=== PATIENT | female | born 1995 | race Caucasian/White ===

== ENCOUNTER 2017-01-16 10:50 | Emergency (ER) | payer BC, OTHER ==
[2017-01-16] MEDS ORDERED: ONDANSETRON 4 MG/2 ML VIAL IVP STA (11:11)
[2017-01-16] MEDS ORDERED: SODIUM CHLORIDE 0.9% 1,000 ML IV STA (11:11)
--- NOTE | 2017-01-16 11:13 | ED ---
General Adult HPI - General Chief complaint: Nausea/Vomiting/Diarrhea Stated complaint: vomiting Time Seen by Provider: 01/16/17 11:04 Source: patient, RN notes reviewed Mode of arrival: ambulatory Limitations: no limitations - History of Present Illness Initial comments: Patient 21-year-old female who presents emergency room today with chief complaint of symptoms of nausea vomiting diarrhea over the last 3 days. She does admit that she has had a difficult time keeping down any food or liquids due to nausea vomiting. States feeling somewhat dehydrated she's noticed that she's having some muscle aches. Patient denies any specific abdominal pain. She states it hurts when she is vomiting. She denies any signs of blood in the emesis or stool. Denies any other associated symptoms or complaints. Patient denies any recent fever, chills, shortness of breath, chest pain, back pain, numbness or tingling, dysuria or hematuria, constipation, headaches or visual changes, or any other complaints. - Related Data Previous Rx's Medication Instructions Recorded Ondansetron Odt [Zofran ODT] 4 mg PO Q8HR PRN #20 tab 01/16/17 Allergies Allergy/AdvReac Type Severity Reaction Status Date / Time No Known Allergies Allergy Verified 01/16/17 11:47 Review of Systems ROS Statement: Those systems with pertinent positive or pertinent negative responses have been documented in the HPI. ROS Other: All systems not noted in ROS Statement are negative. Past Medical History Past Medical History: No Reported History History of Any Multi-Drug Resistant Organisms: None Reported Past Surgical History: No Surgical Hx Reported Past Psychological History: No Psychological Hx Reported Smoking Status: Current every day smoker Past Alcohol Use History: None Reported Past Drug Use History: None Reported General Exam - General Exam Comments Initial Comments: General: The patient is awake and alert, in no distress, and does not appear acutely ill. Eye: Pupils are equal, round and reactive to light, extra-ocular movements are intact. No nystagmus. There is normal conjunctiva bilaterally. No signs of icterus. Ears, nose, mouth and throat: There are moist mucous membranes and no oral lesions. Neck: The neck is supple, there is no tenderness or JVD. Cardiovascular: There is a regular rate and rhythm. No murmur, rub or gallop is appreciated. Respiratory: Lungs are clear to auscultation, respirations are non-labored, breath sounds are equal. No wheezes, stridor, rales, or rhonchi. Gastrointestinal: Soft, non-distended, non-tender abdomen without masses or organomegaly noted. There is no rebound or guarding present. No CVA tenderness. Bowel sounds are unremarkable. Musculoskeletal: Normal ROM, no tenderness. Strength 5/5. Sensation intact. Pulses equal bilaterally 2+. Neurological: A&O x 3. CN II-XII intact, There are no obvious motor or sensory deficits. Coordination appears grossly intact. Speech is normal. Skin: Skin is warm and dry and no rashes or lesions are noted. Psychiatric: Cooperative, appropriate mood & affect, normal judgment. Limitations: no limitations Course Vital Signs 01/16/17 11:21 Temperature 98.4 F Pulse Rate 84 Respiratory 18 Rate Blood Pressure 117/64 O2 Sat by Pulse 98 Oximetry Medical Decision Making - Medical Decision Making Patient reexamined at this time shows no signs of distress is resting comfortably in the stretcher. Abdomen soft nontender. Patient did request a urine drug screen on herself. It did test positive for cocaine and marijuana. Remaining labs been reviewed are unremarkable. No elevated white count. No fever here in the emergency room. Patient will be discharged home with nausea medication advised to follow-up family doctor. - Lab Data Result diagrams: 01/16/17 11:30 01/16/17 11:30 Lab Results 01/16/17 01/16/17 01/16/17 Range/Units 11:30 11:30 12:04 WBC 5.8 (3.8-10.6) k/uL RBC 4.50 (3.80-5.40) m/uL Hgb 14.0 (11.4-16.0) gm/dL Hct 40.7 (34.0-46.0) % MCV 90.6 (80.0-100.0) fL MCH 31.0 (25.0-35.0) pg MCHC 34.3 (31.0-37.0) g/dL RDW 13.3 (11.5-15.5) % Plt Count 303 (150-450) k/uL Neutrophils % 61 % Lymphocytes % 31 % Monocytes % 3 % Eosinophils % 3 % Basophils % 0 % Neutrophils # 3.5 (1.3-7.7) k/uL Lymphocytes # 1.8 (1.0-4.8) k/uL Monocytes # 0.2 (0-1.0) k/uL Eosinophils # 0.2 (0-0.7) k/uL Basophils # 0.0 (0-0.2) k/uL Sodium 140 (137-145) mmol/L Potassium 4.1 (3.5-5.1) mmol/L Chloride 107 (98-107) mmol/L Carbon Dioxide 27 (22-30) mmol/L Anion Gap 6 mmol/L BUN 11 (7-17) mg/dL Creatinine 0.67 (0.52-1.04) mg/dL Est GFR (MDRD) Af Amer >60 (>60 ml/min/1.73 sqM) Est GFR (MDRD) Non-Af >60 (>60 ml/min/1.73 sqM) Glucose 86 (74-99) mg/dL Calcium 9.6 (8.4-10.2) mg/dL Total Bilirubin 0.7 (0.2-1.3) mg/dL AST 18 (14-36) U/L ALT 24 (9-52) U/L Alkaline Phosphatase 65 (38-126) U/L Total Protein 6.8 (6.3-8.2) g/dL Albumin 4.0 (3.5-5.0) g/dL Amylase 58 (30-110) U/L Lipase 66 (23-300) U/L Urine Color Urine Appearance (Clear) Urine pH (5.0-8.0) Ur Specific [place] (1.001-1.035) Urine Protein (Negative) Urine Glucose (UA) (Negative) Urine Ketones (Negative) Urine Blood (Negative) Urine Nitrite (Negative) Urine Bilirubin (Negative) Urine Urobilinogen (<2.0) mg/dL Ur Leukocyte Esterase (Negative) Ur Squamous Epith Cells (0-4) /hpf Amorphous Sediment (None) /hpf Urine HCG, Qual Not Detected (Not Detectd) Urine Opiates Screen (NotDetected) Ur Oxycodone Screen (NotDetected) Urine Methadone Screen (NotDetected) Ur Propoxyphene Screen (NotDetected) Ur Barbiturates Screen (NotDetected) U Tricyclic Antidepress (NotDetected) Ur Phencyclidine Scrn (NotDetected) Ur Amphetamines Screen (NotDetected) U Methamphetamines Scrn (NotDetected) U Benzodiazepines Scrn (NotDetected) Urine Cocaine Screen (NotDetected) U Marijuana (THC) Screen (NotDetected) 01/16/17 01/16/17 Range/Units 12:04 12:04 WBC (3.8-10.6) k/uL RBC (3.80-5.40) m/uL Hgb (11.4-16.0) gm/dL Hct (34.0-46.0) % MCV (80.0-100.0) fL MCH (25.0-35.0) pg MCHC (31.0-37.0) g/dL RDW (11.5-15.5) % Plt Count (150-450) k/uL Neutrophils % % Lymphocytes % % Monocytes % % Eosinophils % % Basophils % % Neutrophils # (1.3-7.7) k/uL Lymphocytes # (1.0-4.8) k/uL Monocytes # (0-1.0) k/uL Eosinophils # (0-0.7) k/uL Basophils # (0-0.2) k/uL Sodium (137-145) mmol/L Potassium (3.5-5.1) mmol/L Chloride (98-107) mmol/L Carbon Dioxide (22-30) mmol/L Anion Gap mmol/L BUN (7-17) mg/dL Creatinine (0.52-1.04) mg/dL Est GFR (MDRD) Af Amer (>60 ml/min/1.73 sqM) Est GFR (MDRD) Non-Af (>60 ml/min/1.73 sqM) Glucose (74-99) mg/dL Calcium (8.4-10.2) mg/dL Total Bilirubin (0.2-1.3) mg/dL AST (14-36) U/L ALT (9-52) U/L Alkaline Phosphatase (38-126) U/L Total Protein (6.3-8.2) g/dL Albumin (3.5-5.0) g/dL Amylase (30-110) U/L Lipase (23-300) U/L Urine Color Light Yellow Urine Appearance Turbid H (Clear) Urine pH 8.0 (5.0-8.0) Ur Specific [place] 1.012 (1.001-1.035) Urine Protein Negative (Negative) Urine Glucose (UA) Negative (Negative) Urine Ketones Negative (Negative) Urine Blood Negative (Negative) Urine Nitrite Negative (Negative) Urine Bilirubin Negative (Negative) Urine Urobilinogen <2.0 (<2.0) mg/dL Ur Leukocyte Esterase Small H (Negative) Ur Squamous Epith Cells 4 (0-4) /hpf Amorphous Sediment Moderate H (None) /hpf Urine HCG, Qual (Not Detectd) Urine Opiates Screen Not Detected (NotDetected) Ur Oxycodone Screen Not Detected (NotDetected) Urine Methadone Screen Not Detected (NotDetected) Ur Propoxyphene Screen Not Detected (NotDetected) Ur Barbiturates Screen Not Detected (NotDetected) U Tricyclic Antidepress Not Detected (NotDetected) Ur Phencyclidine Scrn Not Detected (NotDetected) Ur Amphetamines Screen Not Detected (NotDetected) U Methamphetamines Scrn Not Detected (NotDetected) U Benzodiazepines Scrn Not Detected (NotDetected) Urine Cocaine Screen Detected H (NotDetected) U Marijuana (THC) Screen Detected H (NotDetected) Disposition Clinical Impression: Nausea vomiting and diarrhea Disposition: HOME SELF-CARE Condition: Good Instructions: Acute Nausea and Vomiting (ED) Additional Instructions: Please use medication as discussed. Please follow-up with family doctor in the next 2 days of symptoms have not improved. Please return to emergency room if the symptoms increase or worsen or for any other concerns. Prescriptions: Ondansetron Odt [Zofran ODT] 4 mg PO Q8HR PRN #20 tab PRN Reason: Nausea Referrals: None,Stated [Primary Care Provider] - 1-2 days Time of Disposition: 12:49
[2017-01-16 11:22] VITALS: RESP 18
[2017-01-16 11:54] LABS: ALT 24 U/L (9-52); AST 18 U/L (14-36); Alkaline Phosphatase 65 U/L (38-126); Amylase 58 U/L (30-110); Anion Gap 6 mmol/L; Blood Urea Nitrogen 11 mg/dL (7-17); Calcium 9.6 mg/dL (8.4-10.2); Carbon Dioxide 27 mmol/L (22-30); Chloride 107 mmol/L (98-107); Glucose 86 mg/dL (74-99); Non-African American GFR(MDRD) >60 (>60 ml/min/1.73 sqM); Potassium 4.1 mmol/L (3.5-5.1); Sodium 140 mmol/L (137-145); Total Bilirubin 0.7 mg/dL (0.2-1.3); Total Protein 6.8 g/dL (6.3-8.2)
[2017-01-16 12:01] LABS: Basophils % (A) 0 %; CH 32.2; CHCM 35.7; Eosinophils # (A) 0.2 k/uL (0-0.7); Eosinophils % (A) 3 %; HCT 40.7 % (34.0-46.0); HDW 2.69; Luc # (Auto) 0.13; Luc % (Auto) 2; Lymphocytes # (A) 1.8 k/uL (1.0-4.8); Lymphocytes % (A) 31 %; MCHC 34.3 g/dL (31.0-37.0); MCV 90.6 fL (80.0-100.0); Mean Platelet Volume 6.4; Monocytes # (A) 0.2 k/uL (0-1.0); Monocytes % (A) 3 %; Neutrophils # (A) 3.5 k/uL (1.3-7.7); Neutrophils % (A) 61 %; RDW 13.3 % (11.5-15.5); WBC 5.8 k/uL (3.8-10.6); WBC (Perox) 5.77
[2017-01-16 12:22] LABS: Amorphous Sediment,Urine Moderate /hpf; Appearance,Urine Turbid (Clear); Bilirubin,Urine Negative (Negative); Glucose,Urine (UA) Negative (Negative); Ketones,Urine Negative (Negative); Leukocyte Esterase,Urine Small (Negative); Nitrite,Urine Negative (Negative); Protein,Urine Negative (Negative); Specific Gravity,Urine 1.012 (1.001-1.035); Squamous Epithelial Cell,Urine 4 /hpf (0-4); UA Billing (MACRO vs. MICRO) MICRO; Urobilinogen,Urine <2.0 mg/dL (<2.0)
[2017-01-16 13:33] VITALS: BP 109/63; PULSE 86; TEMP 97.4
== END 2017-01-16 13:31 | disposition home or self-care (01) ==
LOC: EC 10:50
DX: R11.2 Nausea with vomiting, unspecified (principal); R19.7 Diarrhea, unspecified; M79.1 Myalgia; F17.200 Nicotine dependence, unspecified, uncomplicated
CPT/HCPCS: 36415; 80053; 82150; 83690; 85025; 81001; 81025; 80306; 99284; 96374; 96361 ×2; J2405

== ENCOUNTER 2017-09-30 18:27 | Emergency (ER) | payer BC ==
[2017-09-30 18:33] VITALS: BP 104/67; PULSE 68; RESP 18; TEMP 98.2
--- NOTE | 2017-09-30 20:04 | ED ---
General Adult HPI - General Chief complaint: Drug Screen Stated complaint: Drug testing Time Seen by Provider: 09/30/17 19:35 Source: patient, RN notes reviewed Mode of arrival: ambulatory Limitations: no limitations - History of Present Illness Initial comments: This is a 1-year-old female who presents to the emergency department with request for drug screen. Patient states that she is on probation and showed up to get her urine drug screen this morning at 5 AM. She states that they are only open until 6 AM. She states that she was unable to urinate and is only given 15 minutes to try. She reports to the emergency department with request for urine drug screen. Has no other concerns or complaints. - Related Data Home Medications Medication Instructions Recorded Confirmed Omeprazole [PriLOSEC] 20 mg PO DAILY 09/30/17 09/30/17 Varenicline [Chantix Starter Pack] 0.5 mg PO BID 09/30/17 09/30/17 Allergies Allergy/AdvReac Type Severity Reaction Status Date / Time codeine Allergy Anaphylaxis Verified 09/30/17 19:35 Review of Systems ROS Statement: Those systems with pertinent positive or pertinent negative responses have been documented in the HPI. ROS Other: All systems not noted in ROS Statement are negative. Past Medical History Past Medical History: No Reported History History of Any Multi-Drug Resistant Organisms: None Reported Past Surgical History: No Surgical Hx Reported Past Psychological History: No Psychological Hx Reported Smoking Status: Current every day smoker Past Alcohol Use History: None Reported Past Drug Use History: None Reported General Exam - General Exam Comments Initial Comments: No physical examination warranted at this time. Limitations: no limitations Course Vital Signs 09/30/17 18:31 Temperature 98.2 F Pulse Rate 68 Respiratory 18 Rate Blood Pressure 104/67 O2 Sat by Pulse 99 Oximetry Medical Decision Making - Medical Decision Making This is a 21-year-old female who presents to the emergency department with request for urine drug screen. She states she is on probation and was unable to give a sample this morning when she was supposed to. Has no other concerns, complaints or requests. She is in no acute distress and will be discharged home. Disposition Clinical Impression: Encounter for drug screening Disposition: HOME SELF-CARE Condition: Good Additional Instructions: Please follow up with primary care provider within 1-2 days. Return to emergency department if symptoms should worsen or any concerns arise. Referrals: None,Stated [Primary Care Provider] - 1-2 days Time of Disposition: 20:03
[2017-09-30 20:10] LABS: Amphetamine Screen,Urine Not Detected (NotDetected); Benzodiazepines Screen,Urine Not Detected (NotDetected); Cocaine Screen,Urine Not Detected (NotDetected); Methadone Screen, Urine Not Detected (NotDetected); Opiate Screen,Urine Not Detected (NotDetected); Phencyclidine Screen,Urine Not Detected (NotDetected); Tricyclic Antidepressant,Urine Not Detected (NotDetected); Urn Cannabinoid Scrn Not Detected (NotDetected)
[2017-09-30 20:11] LABS: Barbiturate Screen,Urine Not Detected (NotDetected); Oxycodone Screen, Urine Not Detected (NotDetected)
== END 2017-09-30 20:18 | disposition home or self-care (01) ==
LOC: EC 18:27
DX: Z02.9 Encounter for administrative examinations, unspecified (principal); F17.200 Nicotine dependence, unspecified, uncomplicated; Z79.899 Other long term (current) drug therapy; Z88.5 Allergy status to narcotic agent
CPT/HCPCS: 80306; 99281

== ENCOUNTER → 2017-12-04 | Outpatient (CLI) | payer BC ==
--- NOTE | 2017-12-04 07:51 | US ---
EXAMINATION TYPE: US transvaginal DATE OF EXAM: 12/04/2017 COMPARISON: US CLINICAL HISTORY: R10.9 Abdominal pain,R10.2 Pelvic pain. Pt states pelvic pain TECHNIQUE: Transvaginal (TV). Date of LMP: 11/08/2017 EXAM MEASUREMENTS: Uterus: 6.3 x 3.1 x 4.2 cm Endometrial Stripe: 0.7 cm Right Ovary: 3.4 x 1.9 x 2.8 cm Left Ovary: 3.2 x 1.8 x 3.4 cm 1. Uterus: Anteverted wnl 2. Endometrium: wnl 3. Right Ovary: Polycystic in appearance 4. Left Ovary: Polycystic in appearance 5. Bilateral Adnexa: wnl 6. Posterior cul-de-sac: wnl IMPRESSION: 1. Multiple bilateral ovarian follicles correlate clinically.
--- NOTE | 2017-12-04 07:52 | US ---
EXAMINATION TYPE: US abdomen complete DATE OF EXAM: 12/04/2017 COMPARISON: NONE CLINICAL HISTORY: R10.9 Abdominal pain,R10.2 Pelvic pain. Generalized ABD pain EXAM MEASUREMENTS: Liver Length: 13.5 cm Gallbladder Wall: 0.2 cm CBD: 0.2 cm Spleen: 10.1 cm Right Kidney: 10.2 x 3.8 x 5.1 cm Left Kidney: 10.8 x 5.1 x 4.6 cm Pancreas: wnl, tail obscured by overlying bowel gas Liver: wnl Gallbladder: wnl Evidence for sonographic Michaels's sign: No CBD: wnl Spleen: wnl Right Kidney: wnl, lower pole gassed out Left Kidney: wnl, lower pole gassed out Upper IVC: wnl Abd Aorta: wnl No abnormality visualized to account for pt's symptoms The liver is homogenous. The intrahepatic portion of the IVC and proximal abdominal aorta are within normal limits. There is no evidence of cholelithiasis. Common bile duct is unremarkable. The visu alized portions of the pancreas are homogenous. The spleen is unremarkable. Kidneys are symmetric a nd free of hydronephrosis. No renal lesions are seen. IMPRESSION: 1. No acute process.
== END | disposition home or self-care (01) ==
LOC: RADUSWWP 06:52
PROVIDERS: ATTEND Internal Medicine
DX: R10.2 Pelvic and perineal pain (principal)
CPT/HCPCS: 76700; 76830

== ENCOUNTER 2018-05-31 04:45 | Emergency (ER) | payer BC ==
[2018-05-31 04:53] VITALS: BP 116/69; PULSE 98; RESP 16; TEMP 97.7
--- NOTE | 2018-05-31 05:12 | ED ---
General Adult HPI - General Chief complaint: Recheck/Abnormal Lab/Rx Stated complaint: Test Time Seen by Provider: 05/31/18 04:50 Source: patient Mode of arrival: ambulatory Limitations: no limitations - History of Present Illness Initial comments: Nohelia is a female LMP 04/30/2018 who presents to the emergency department for reevaluation of a possible . Patient reports that she was seen by her primary care physician yesterday, she advised him that she been having some irregular vaginal bleeding throughout the month Rissa she had a urine test in the office which was positive any ordered a serum test. Patient didn't receive the results of that. Patient states that she doesn't feel and doesn't believe that she could be because having vaginal bleeding so she came to the ER for evaluation. Patient reports that her menstrual cycle started on April 30, she had some cramping and bleeding that persisted for approximately 3 weeks. This is improved significantly. She reports she is now having mild spotting that the cramping and pain has resolved. She is concerned that she may be having a miscarriage. - Related Data Home Medications Medication Instructions Recorded Confirmed Omeprazole [PriLOSEC] 20 mg PO DAILY 09/30/17 09/30/17 Varenicline [Chantix Starter Pack] 0.5 mg PO BID 09/30/17 09/30/17 Previous Rx's Medication Instructions Recorded Pnv No.95/Ferrous Fum/Folic AC 1 each PO DAILY #30 tablet 05/31/18 [ Multivitamin Tablet] Allergies Allergy/AdvReac Type Severity Reaction Status Date / Time codeine Allergy Anaphylaxis Verified 09/30/17 19:35 Review of Systems ROS Statement: Those systems with pertinent positive or pertinent negative responses have been documented in the HPI. ROS Other: All systems not noted in ROS Statement are negative. Past Medical History Past Medical History: No Reported History Additional Past Medical History / Comment(s): PCOS History of Any Multi-Drug Resistant Organisms: None Reported Past Surgical History: No Surgical Hx Reported Past Psychological History: No Psychological Hx Reported Smoking Status: Current every day smoker Past Alcohol Use History: None Reported Past Drug Use History: None Reported General Exam - General Exam Comments Initial Comments: Physical Exam GENERAL: Patient is well-developed and well-nourished. Patient is nontoxic and well- hydrated and is in no distress. Smells of tobacco smoke HENT: Normocephalic, Atraumatic. EYES: PERRL, EOMI PULMONARY: Unlabored respirations. No audible rales rhonchi or wheezing was noted. CARDIOVASCULAR: There is a regular rate and rhythm without any murmurs gallops or rubs. ABDOMEN: Soft and nontender with normal bowel sounds. SKIN: Skin is clear with no lesions or rashes and otherwise unremarkable. : Deferred NEUROLOGIC: Patient is alert and oriented x3. Moving all extremities spontaneously MUSCULOSKELETAL: Normal extremities with adequate strength and full range of motion. No lower extremity swelling or edema. No calf tenderness. PSYCHIATRIC: Normal psychiatric evaluation. Limitations: no limitations Limitations: no limitations Course Vital Signs 05/31/18 04:49 Temperature 97.7 F Pulse Rate 98 Respiratory 16 Rate Blood Pressure 116/69 O2 Sat by Pulse 100 Oximetry Medical Decision Making - Medical Decision Making Patient was seen and evaluated, patient's medical record was reviewed, patient and a blood draw yesterday with a serum hCG of >2200, blood draw was less than 18 hours prior Patient reports she had cramping earlier in the month but this is improved. She is only having spotting now Either the patient with her serum beta hCG results which she hadn't had previously. I advised her that this is consistent with . However given that she is having some vaginal bleeding she may be having a miscarriage. I advised the patient there is not any diagnostic value to repeating the beta hCG within a 12 hour period. I will provide the patient with a prescription to have her beta hCG repeated on Saturday. Patient is in agreement with this. Return parameters were discussed. All questions pertaining care were answered the best my ability. Patient was prescribed vitamins and discharged home. Patient has a follow-up appointment with gynecology scheduled for June. Disposition Clinical Impression: Vaginal bleeding before 22 weeks gestation Disposition: HOME SELF-CARE Condition: Good Instructions: Threatened Miscarriage (ED) Prescriptions: Pnv No.95/Ferrous Fum/Folic AC [ Multivitamin Tablet] 1 each PO DAILY # 30 tablet Is patient prescribed a controlled substance at d/c from ED?: No Referrals: Ana Musa MD [Primary Care Provider] - 1-2 days Time of Disposition: 05:11
== END 2018-05-31 05:21 | disposition home or self-care (01) ==
LOC: EC 04:45
DX: O20.9 Hemorrhage in early pregnancy, unspecified (principal); O99.330 Smoking (tobacco) complicating pregnancy, unspecified trimester; F17.200 Nicotine dependence, unspecified, uncomplicated; Z88.5 Allergy status to narcotic agent; Z79.899 Other long term (current) drug therapy; Z3A.00 Weeks of gestation of pregnancy not specified
CPT/HCPCS: 99281

== ENCOUNTER → 2018-06-03 | Outpatient (CLI) | payer BC | END | disposition home or self-care (01) | LOC: LABMAIN 19:41 | PROVIDERS: ATTEND Student in an Organized Health Care Education/Training Program | DX: Z53.9 Procedure and treatment not carried out, unspecified reason (principal) ==

== ENCOUNTER 2018-06-10 17:24 | Observation (INO) | payer BC ==
--- NOTE | 2018-06-10 18:51 | ED ---
Abdominal Pain HPI - General Source: family Mode of arrival: ambulatory Limitations: no limitations <Debby Patelolga lidia Benites - Last Filed: 06/11/18 00:09> <Og Owensssjazmin Marrero - Last Filed: 06/11/18 03:12> - General Chief Complaint: Abdominal Pain Stated Complaint: ABDOMINAL PAIN - History of Present Illness Initial Comments: 22-year-old with past medical history of PCOS in recent studies presenting today for chief complaint of right-sided pelvic pain, patient is 6 weeks . Patient states that 2 weeks ago she had a positive test with her primary care provider Dr. Pascual who has been monitoring her serum beta hCG. Patient states that she was seen here on the for vaginal bleeding, at that time beta hCG was trending downward. Patient was discharged. Yesterday patient was seen at [place] her medical or ultrasounds obtained revealing no intrauterine no free fluid, ultrasound report stated that ectopic cannot be ruled out. However patient was discharged. Serum hCG 77 at that time. Patient states that the pain persisted cramping right lower pelvic pain with mild vaginal spotting. Patient denies heavy vaginal bleeding. Today patient pain persisted, so she presented for evaluation. Patient denies nausea, vomiting, diarrhea. Patient does note that at times she has difficulty urinating. Patient states that she hadn't be straight catheterized at the [facility] for UA yesterday, however she has since voided without catheterization. Patient last bowel movement yesterday evening. Patient denies any melena, or hematochezia. Remainder of ROS negative.Patient denies any recent fever, chills, shortness of breath, chest pain, back pain, numbness or tingling, dysuria or hematuria, constipation or diarrhea, headaches or visual changes, or any other complaints. Arrival patient is hemodynamically stable. Patient is not in acute distress. She is ambulatory (Tiny Patel) - Related Data Home Medications Medication Instructions Recorded Confirmed L.acidoph,Paracasei, B.lactis 1 cap PO DAILY 06/10/18 06/10/18 [Probiotic] Allergies Allergy/AdvReac Type Severity Reaction Status Date / Time codeine Allergy Anaphylaxis Verified 06/10/18 17:55 Review of Systems ROS Other: All systems not noted in ROS Statement are negative. Constitutional: Denies: fever, chills ENT: Denies: ear pain, throat pain Respiratory: Denies: cough, dyspnea, wheezes, hemoptysis, stridor Cardiovascular: Denies: chest pain, palpitations Gastrointestinal: Reports: as per HPI, abdominal pain (Right lower pelvic pain) . Denies: nausea, vomiting, diarrhea, constipation, hematemesis, melena, hematochezia Genitourinary: Reports: as per HPI (Difficulty urinating on and off) Musculoskeletal: Denies: back pain, joint swelling, arthralgia Skin: Denies: rash, lesions Neurological: Denies: headache, numbness, paresthesias, confusion, abnormal gait <Tiny Patel - Last Filed: 06/11/18 00:09> ROS Other: All systems not noted in ROS Statement are negative. <Teresa Owens - Last Filed: 06/11/18 03:12> ROS Statement: Those systems with pertinent positive or pertinent negative responses have been documented in the HPI. Past Medical History Past Medical History: No Reported History Additional Past Medical History / Comment(s): PCOS History of Any Multi-Drug Resistant Organisms: None Reported Past Surgical History: No Surgical Hx Reported Past Psychological History: No Psychological Hx Reported Smoking Status: Current every day smoker Past Alcohol Use History: None Reported Past Drug Use History: None Reported <Tiny Patel - Last Filed: 06/11/18 00:09> - Past Family History Mother Family Medical History: Cancer <Teresa Owens - Last Filed: 06/11/18 03:12> General Exam Limitations: no limitations <Tiny Patel L - Last Filed: 06/11/18 00:09> <Teresa Owens P - Last Filed: 06/11/18 03:12> - General Exam Comments Initial Comments: General: The patient is awake and alert, in no distress, and does not appear acutely ill. Eye: Pupils are equal, round and reactive to light, extra-ocular movements are intact. No nystagmus. There is normal conjunctiva bilaterally. No signs of icterus. Ears, nose, mouth and throat: There are moist mucous membranes and no oral lesions. Neck: The neck is supple, there is no tenderness or JVD. Cardiovascular: There is a regular rate and rhythm. No murmur, rub or gallop is appreciated. Respiratory: Lungs are clear to auscultation, respirations are non-labored, breath sounds are equal. No wheezes, stridor, rales, or rhonchi. Gastrointestinal: No noted diaphoresis, jaundice, pallor, protecting postures or squirming. Symmetrical pigmentation of abdomen without signs of inflammation, scars or striae. Umbilicus mildline, inverted without swelling. No dilated veins. No noted abdominal distention, rigidity. No visible masses. No peristalsis, aortic pulsations, or ventral hernia. Bowel sounds audible in all 4 quadrants, unremarkable. No friction rubs or venous hums. No epigastic, hepatic or abdominal bruits. No pain to palpation in the quadrants, however patient has pain to the right lower pelvic region- some guarding noted. Liver edge, not palpable. Spleen edge, right and left kidney not palpable. Superior bladder margin non-tender. Special Testing: Negative , [place], [place], [place], [place]a. Negative Heel Jar test.. No CVA tenderness. Digital rectal exam deferred. Negative farnsworth turners or cullens sign- SEE exam Musculoskeletal: Normal ROM, no tenderness. Strength 5/5. Sensation intact. Pulses equal bilaterally 2+. Neurological: A&O x 3. CN II-XII intact, There are no obvious motor or sensory deficits. Coordination appears grossly intact. Speech is normal. Skin: Skin is warm and dry and no rashes or lesions are noted. Psychiatric: Cooperative, appropriate mood & affect, normal judgment. (Tiny Patel) Course <Tiny Patel - Last Filed: 06/11/18 00:09> <Teresa Owens - Last Filed: 06/11/18 03:12> Vital Signs 06/10/18 06/10/18 17:29 22:55 Temperature 97.8 F Pulse Rate 98 90 Respiratory 18 17 Rate Blood Pressure 102/59 104/63 O2 Sat by Pulse 100 97 Oximetry - Reevaluation(s) Reevaluation #1: Following transvaginal ultrasound, patient admits to increased pain. Patient given Dilaudid. Repeat abdominal pain, revealed increased pain and guarding in comparison with the original exam. These findings were discussed with Dr. Jacobs. 06/10/18 23:51 (Tiny Patel) Reevaluation #2: pt states pt is improving 10/31/18 24:00 (Tiny Patel) Medical Decision Making - Lab Data Result diagrams: 06/10/18 22:32 06/10/18 18:39 <Tiny Patel - Last Filed: 06/11/18 00:09> - Lab Data Result diagrams: 06/10/18 22:32 06/10/18 18:39 <Teresa Owens - Last Filed: 06/11/18 03:12> - Medical Decision Making 22-year-old female with cc of (+) test with right lower quadrant pain concerning for ectopic . Pt at first stated she could no urinate, upon attempt to catheterize patient nurse was unsuccessful. Patient was able to void without catheterization following initial attempt by nursing staff. Bladder scan obtained. US ordered at 18:50, pt US was not completed and resulted until 20:28. Ultrasound revealed no intrauterine , there was some free fluid in the cul-de-sac supporting differential ectopic . I discussed case at this time with attending, awaitng HcG quant results OBGYN would be contacted by attending. Following pelvic ultrasound patient admits to increased pain, patient was given 2 g of Dilaudid. Pelvic performed revealing slightly open OS, brown discharge in the vaginal vault. No hemorrhage. Pt had right adnexa tenderness, findings discussed with Dr Owens. Edwin was contacted at 23:30PM and spoke with Dr. Owens. He was concerned for ectopic, pt admitted. No further orders at this time. ABO/RH pending. Pt remains hemodynamically stable, repeat evaluation at 11:00 pt states that pain has improvement. Hgb trending downward. Pt transferred to floor in stable condition. (Tiny Patel) I personally saw and examined the patient, patient had received IV narcotic pain medication prior to my evaluation. Patient was sitting up in bed resting comfortably. I reviewed the mid-level chart, HPI does have some dictation error. This is a female presenting to the ER for reevaluation of right lower quadrant right-sided pelvic pain. Patient was evaluated earlier in the month by her primary care physician, she had a positive urine test and a serum beta hCG of 2200. She followed up in our ER the following day to confirm that she was . At that time she reported she had some vaginal bleeding but it is improved. No further diagnostic testing was obtained. Patient was advised to have trending beta-hCGs was given a prescription for such. Repeat hCG was trending downward. Patient contacted OB office but has been unable to follow-up at this time. Patient was evaluated yesterday at [facility] for right-sided pelvic pain. Patient was noted to have a hemoglobin of 12.4, a beta hCG of 775, an ultrasound that revealed no intrauterine and no definitive ectopic however ectopic could not be excluded. Patient was discharged home and advised to follow-up. Patient reports pain again worsened today which prompted her return to the emergency department. At the time of the initial evaluation in our emergency department the patient was in significant discomfort, repeat labs are ordered, medical records were obtained from the outside facility. Hemoglobin was trending down, beta hCG essentially unchanged, repeat ultrasound with some free fluid in the pelvis. Based on these findings are is a high suspicion for possible ectopic. Patient care was discussed with Dr. Pineda who recommended the patient be admitted to his service for further evaluation. Patient had been in the emergency department for 5 hours at that time, a repeat hemoglobin was obtained and again revealed a down trending and the hemoglobin by 0.8. Admission orders were placed, patient was transferred to labor and delivery for evaluation by OB for possible intervention. Patient remained hemodynamically stable throughout her ED stay. (Teresa Owens) - Lab Data Lab Results 06/10/18 06/10/18 06/10/18 Range/Units 18:30 18:39 18:39 WBC 5.9 (3.8-10.6) k/uL RBC 3.66 L (3.80-5.40) m/uL Hgb 11.4 (11.4-16.0) gm/dL Hct 33.9 L (34.0-46.0) % MCV 92.8 (80.0-100.0) fL MCH 31.3 (25.0-35.0) pg MCHC 33.7 (31.0-37.0) g/dL RDW 12.9 (11.5-15.5) % Plt Count 287 (150-450) k/uL Neutrophils % 69 % Lymphocytes % 23 % Monocytes % 4 % Eosinophils % 2 % Basophils % 0 % Neutrophils # 4.1 (1.3-7.7) k/uL Lymphocytes # 1.4 (1.0-4.8) k/uL Monocytes # 0.3 (0-1.0) k/uL Eosinophils # 0.1 (0-0.7) k/uL Basophils # 0.0 (0-0.2) k/uL Sodium 139 (137-145) mmol/L Potassium 4.1 (3.5-5.1) mmol/L Chloride 107 (98-107) mmol/L Carbon Dioxide 26 (22-30) mmol/L Anion Gap 6 mmol/L BUN 9 (7-17) mg/dL Creatinine 0.46 L (0.52-1.04) mg/dL Est GFR (CKD-EPI)AfAm >90 (>60 ml/min/1.73 sqM) Est GFR (CKD-EPI)NonAf >90 (>60 ml/min/1.73 sqM) Glucose 128 H (74-99) mg/dL Calcium 9.5 (8.4-10.2) mg/dL Total Bilirubin 0.5 (0.2-1.3) mg/dL AST 26 (14-36) U/L ALT 34 (9-52) U/L Alkaline Phosphatase 50 (38-126) U/L Total Protein 6.5 (6.3-8.2) g/dL Albumin 3.9 (3.5-5.0) g/dL Amylase 41 (30-110) U/L Lipase 45 (23-300) U/L HCG, Quant 787.4 mIU/mL Urine Color Urine Appearance (Clear) Urine pH (5.0-8.0) Ur Specific Hoskins (1.001-1.035) Urine Protein (Negative) Urine Glucose (UA) (Negative) Urine Ketones (Negative) Urine Blood (Negative) Urine Nitrite (Negative) Urine Bilirubin (Negative) Urine Urobilinogen (<2.0) mg/dL Ur Leukocyte Esterase (Negative) Urine RBC (0-5) /hpf Urine WBC (0-5) /hpf Ur Squamous Epith Cells (0-4) /hpf Amorphous Sediment (None) /hpf Urine Mucus (None) /hpf Urine HCG, Qual (Not Detectd) Blood Type Blood Type Recheck Antibody Screen Spec Expiration Date 10/30/18 10/30/18 10/30/18 Range/Units 18:39 18:59 18:59 WBC (3.8-10.6) k/uL RBC (3.80-5.40) m/uL Hgb (11.4-16.0) gm/dL Hct (34.0-46.0) % MCV (80.0-100.0) fL MCH (25.0-35.0) pg MCHC (31.0-37.0) g/dL RDW (11.5-15.5) % Plt Count (150-450) k/uL Neutrophils % % Lymphocytes % % Monocytes % % Eosinophils % % Basophils % % Neutrophils # (1.3-7.7) k/uL Lymphocytes # (1.0-4.8) k/uL Monocytes # (0-1.0) k/uL Eosinophils # (0-0.7) k/uL Basophils # (0-0.2) k/uL Sodium (137-145) mmol/L Potassium (3.5-5.1) mmol/L Chloride (98-107) mmol/L Carbon Dioxide (22-30) mmol/L Anion Gap mmol/L BUN (7-17) mg/dL Creatinine (0.52-1.04) mg/dL Est GFR (CKD-EPI)AfAm (>60 ml/min/1.73 sqM) Est GFR (CKD-EPI)NonAf (>60 ml/min/1.73 sqM) Glucose (74-99) mg/dL Calcium (8.4-10.2) mg/dL Total Bilirubin (0.2-1.3) mg/dL AST (14-36) U/L ALT (9-52) U/L Alkaline Phosphatase (38-126) U/L Total Protein (6.3-8.2) g/dL Albumin (3.5-5.0) g/dL Amylase (30-110) U/L Lipase (23-300) U/L HCG, Quant mIU/mL Urine Color Yellow Urine Appearance Clear (Clear) Urine pH 6.5 (5.0-8.0) Ur Specific Hoskins 1.015 (1.001-1.035) Urine Protein Negative (Negative) Urine Glucose (UA) Negative (Negative) Urine Ketones 1+ H (Negative) Urine Blood Negative (Negative) Urine Nitrite Negative (Negative) Urine Bilirubin Negative (Negative) Urine Urobilinogen <2.0 (<2.0) mg/dL Ur Leukocyte Esterase Trace H (Negative) Urine RBC 1 (0-5) /hpf Urine WBC 4 (0-5) /hpf Ur Squamous Epith Cells <1 (0-4) /hpf Amorphous Sediment Rare H (None) /hpf Urine Mucus Occasional H (None) /hpf Urine HCG, Qual Detected (Not Detectd) Blood Type A Positive Blood Type Recheck CABO Indicated Antibody Screen NEGATIVE Spec Expiration Date 06/13/2018233806/10/18 Range/Units 22:32 WBC 7.9 (3.8-10.6) k/uL RBC 3.30 L (3.80-5.40) m/uL Hgb 10.6 L (11.4-16.0) gm/dL Hct 30.8 L (34.0-46.0) % MCV 93.4 (80.0-100.0) fL MCH 32.0 (25.0-35.0) pg MCHC 34.3 (31.0-37.0) g/dL RDW 13.0 (11.5-15.5) % Plt Count 257 (150-450) k/uL Neutrophils % % Lymphocytes % % Monocytes % % Eosinophils % % Basophils % % Neutrophils # (1.3-7.7) k/uL Lymphocytes # (1.0-4.8) k/uL Monocytes # (0-1.0) k/uL Eosinophils # (0-0.7) k/uL Basophils # (0-0.2) k/uL Sodium (137-145) mmol/L Potassium (3.5-5.1) mmol/L Chloride (98-107) mmol/L Carbon Dioxide (22-30) mmol/L Anion Gap mmol/L BUN (7-17) mg/dL Creatinine (0.52-1.04) mg/dL Est GFR (CKD-EPI)AfAm (>60 ml/min/1.73 sqM) Est GFR (CKD-EPI)NonAf (>60 ml/min/1.73 sqM) Glucose (74-99) mg/dL Calcium (8.4-10.2) mg/dL Total Bilirubin (0.2-1.3) mg/dL AST (14-36) U/L ALT (9-52) U/L Alkaline Phosphatase (38-126) U/L Total Protein (6.3-8.2) g/dL Albumin (3.5-5.0) g/dL Amylase (30-110) U/L Lipase (23-300) U/L HCG, Quant mIU/mL Urine Color Urine Appearance (Clear) Urine pH (5.0-8.0) Ur Specific Hoskins (1.001-1.035) Urine Protein (Negative) Urine Glucose (UA) (Negative) Urine Ketones (Negative) Urine Blood (Negative) Urine Nitrite (Negative) Urine Bilirubin (Negative) Urine Urobilinogen (<2.0) mg/dL Ur Leukocyte Esterase (Negative) Urine RBC (0-5) /hpf Urine WBC (0-5) /hpf Ur Squamous Epith Cells (0-4) /hpf Amorphous Sediment (None) /hpf Urine Mucus (None) /hpf Urine HCG, Qual (Not Detectd) Blood Type Blood Type Recheck Antibody Screen Spec Expiration Date Disposition Decision to Admit Reason: Admit from EC Decision Date: 06/10/18 Decision Time: 23:16 <Tiny Patel - Last Filed: 06/11/18 00:09> <Teresa Owens - Last Filed: 06/11/18 03:12> Clinical Impression: Ectopic Disposition: ADMITTED IP TO THIS [facility] Condition: Stable Addendum entered and electronically signed by Tiny Patel PA-C 06/11/18 00 :10: Pelvic Exam: External genitalia within normal limits, no lesions or lacerations. Upon examination of the vaginal vault, there was brownish discharge, no active hemorrhaging. No noted vaginal lacerations. There was edema of the vagina noted. Cervical os slightly open. Patient had right adnexal tenderness upon bimanual examination.
[2018-06-10 18:58] LABS: Basophils % (A) 0 %; Eosinophils # (A) 0.1 k/uL (0-0.7); Eosinophils % (A) 2 %; HCT 33.9 % (34.0-46.0); HGB 11.4 gm/dL (11.4-16.0); Lymphocytes # (A) 1.4 k/uL (1.0-4.8); Lymphocytes % (A) 23 %; MCH 31.3 pg (25.0-35.0); MCHC 33.7 g/dL (31.0-37.0); MCV 92.8 fL (80.0-100.0); Mean Platelet Volume 6.5; Monocytes # (A) 0.3 k/uL (0-1.0); Monocytes % (A) 4 %; Neutrophils # (A) 4.1 k/uL (1.3-7.7); Neutrophils % (A) 69 %; Platelet Count 287 k/uL (150-450); RBC 3.66 m/uL (3.80-5.40); RDW 12.9 % (11.5-15.5); WBC 5.9 k/uL (3.8-10.6)
[2018-06-10 19:04] LABS: ALT 34 U/L (9-52); AST 26 U/L (14-36); Albumin 3.9 g/dL (3.5-5.0); Alkaline Phosphatase 50 U/L (38-126); Amylase 41 U/L (30-110); Anion Gap 6 mmol/L; Blood Urea Nitrogen 9 mg/dL (7-17); Calcium 9.5 mg/dL (8.4-10.2); Carbon Dioxide 26 mmol/L (22-30); Chloride 107 mmol/L (98-107); Glucose 128 mg/dL (74-99); Lipase 45 U/L (23-300); Potassium 4.1 mmol/L (3.5-5.1); Sodium 139 mmol/L (137-145); Total Bilirubin 0.5 mg/dL (0.2-1.3); Total Protein 6.5 g/dL (6.3-8.2)
[2018-06-10 19:06] LABS: Amorphous Sediment,Urine Rare /hpf; Appearance,Urine Clear (Clear); Bilirubin,Urine Negative (Negative); Blood,Urine Negative (Negative); Color,Urine Yellow; Glucose,Urine (UA) Negative (Negative); Ketones,Urine 1+ (Negative); Leukocyte Esterase,Urine Trace (Negative); Mucus,Urine Occasional /hpf; Nitrite,Urine Negative (Negative); PH, Urine 6.5 (5.0-8.0); Protein,Urine Negative (Negative); RBC,Urine 1 /hpf (0-5); Specific Gravity,Urine 1.015 (1.001-1.035); Squamous Epithelial Cell,Urine <1 /hpf (0-4); Urobilinogen,Urine <2.0 mg/dL (<2.0)
--- NOTE | 2018-06-10 20:28 | US ---
EXAMINATION TYPE: Transabdominal DATE OF EXAM: 11/12/17 COMPARISON: NONE CLINICAL HISTORY: Pain. Pain positive beta hCG test. EXAM PERFORMED: Transvaginal (TV) and Transabdominal (TA) EXAM MEASUREMENTS: GESTATIONAL AGE / DATING Physician Established: Not yet established Dates by LMP: LMP unknown Dates by First Scan: No previous this is first scan Dates by Current Scan for: No IUP seen at this time MATERNAL ANATOMY Uterus: 7.4 x 3.8 x 5.1 cm Right Ovary: 2.3 x 1.5 x 2.7 cm Left Ovary: Not seen to overlying bowel gas. Post CDS / Adnexa: Bowel gas and free fluid seen. Presence of free fluid: Yes GESTATION / SURVEY IUP: No IUP seen at this time Beta HcG (if available): Not available at this time Heterogeneous anteverted uterus is seen. Endometrium is thickened up to 8 mm. No gestational sac, yol k sac, or pole is present. Small amount of free fluid in pelvic cul-de-sac is not completely an echoic extending towards the adnexa. Nonspecific finding. Right ovary is seen. Left ovary is not clearly identified. No suspicious extra ovarian adnexal lesion s are seen. IMPRESSION: Findings could reflect too early to visualize intrauterine but spontaneous is in d ifferential and ectopic is not excluded. Serial beta hCG and ultrasound follow-up is advise d.
[2018-06-10] MEDS ORDERED: HYDROmorphone 1 MG/ML 1 ML SYRINGE IVP STA ×2 (20:33→22:18)
[2018-06-10] MEDS ORDERED: SODIUM CHLORIDE 0.9% 1,000 ML IV ONE (20:59)
[2018-06-10 22:48] LABS: HCT 30.8 % (34.0-46.0); HGB 10.6 gm/dL (11.4-16.0); MCHC 34.3 g/dL (31.0-37.0); MCV 93.4 fL (80.0-100.0); Mean Platelet Volume 6.5; Platelet Count 257 k/uL (150-450); WBC 7.9 k/uL (3.8-10.6)
[2018-06-11] MEDS ORDERED: METHOTREXATE SODIUM (PF) 25 MG/ML 2 ML VIAL IM STA (00:58)
[2018-06-11 01:03] VITALS: RESP 16; TEMP 97.7; BMI 28.7
[2018-06-11] MEDS ORDERED: ZOLPIDEM 5 MG TAB PO PRN (01:08)
--- NOTE | 2018-06-11 01:25 | P.HPOB ---
History of Present Illness H&P Date: 06/11/18 Chief Complaint: Pelvic pain and . This patient is a pleasant 22-year-old 1 para 0 female who presents to [facility] Emergency Department with complaints of persistent vaginal bleeding and pelvic pain with abnormal hCG levels. Patient's history is such that she states she had a last menstrual period that was normal on March 18, then her next bleeding episode began on April 30. Patient states that she has been bleeding on and off since that date. She went to her primary physician, Dr. Musa on May 30 with complaints of bleeding at that time had a positive urine hCG and a beta hCG of 2204. Patient did not have an ultrasound at that time. Dr. Musa repeated her beta hCG approximately 4 days later on June 03 and it was 1724. Patient also went to the emergency department at this hospital on May 31 for similar complaints but did not have any hCG drawn or ultrasound. Patient most recently went to [facility] last evening and had an ultrasound which was normal and is uncertain what her hCG was at that time. Patient is hCG this evening is 787. Ultrasound today shows no evidence of an intrauterine and also no evidence of an ectopic . She did have a trace amount of fluid. Her bleeding is not significantly heavy at this time. Patient thinks that she did pass some possible tissue perhaps the first week of May but she is uncertain. The pain localizes to her central lower pelvic area around the bladder. She has been working and denies any nausea or vomiting. Patient was given 1 dose of Dilaudid in the emergency department. Review of Systems Constitutional: Reports as per HPI Genitourinary: Reports abnormal vaginal bleeding, Reports pelvic pain, Reports Menstruation: Reports as per HPI Past Medical History Past Medical History: Asthma Additional Past Medical History / Comment(s): PCOS History of Any Multi-Drug Resistant Organisms: None Reported Past Surgical History: No Surgical Hx Reported Past Anesthesia/Blood Transfusion Reactions: No Reported Reaction Past Psychological History: No Psychological Hx Reported Smoking Status: Current every day smoker Past Alcohol Use History: None Reported Past Drug Use History: None Reported - Past Family History Mother Family Medical History: Cancer Medications and Allergies Home Medications Medication Instructions Recorded Confirmed Type L.acidoph,Paracasei, B.lactis 1 cap PO DAILY 06/10/18 06/10/18 History [Probiotic] Allergies Allergy/AdvReac Type Severity Reaction Status Date / Time codeine Allergy Anaphylaxis Verified 06/10/18 17:55 Exam Vital Signs Temp Pulse Pulse Resp BP BP Pulse Ox 06/11/18 00:05 97.7 F 85 16 126/81 06/10/18 22:55 90 17 104/63 97 06/10/18 17:29 97.8 F 98 18 102/59 100 Intake and Output 06/10/18 06/10/18 06/11/18 14:59 22:59 06:59 Output Total 350 Balance -350 Output: Post Void Residual 350 Other: Weight 65.771 kg 66.678 kg - OBG Physical Exam Abdomen: bowel sounds normal (Abdominal exam shows some mild tenderness localized to the suprapubic area. There is no rebound and no guarding.), no diffuse tenderness, no bruit present, no guarding noted, no hepatomegaly, no splenomegaly, no mass Results Result Diagrams: 06/10/18 22:32 06/10/18 18:39 Abnormal Lab Results - Last 24 Hours (Table) 06/10/18 06/10/18 06/10/18 Range/Units 18:39 18:39 18:59 RBC 3.66 L (3.80-5.40) m/uL Hgb (11.4-16.0) gm/dL Hct 33.9 L (34.0-46.0) % Creatinine 0.46 L (0.52-1.04) mg/dL Glucose 128 H (74-99) mg/dL Urine Ketones 1+ H (Negative) Ur Leukocyte Esterase Trace H (Negative) Amorphous Sediment Rare H (None) /hpf Urine Mucus Occasional H (None) /hpf 06/10/18 Range/Units 22:32 RBC 3.30 L (3.80-5.40) m/uL Hgb 10.6 L (11.4-16.0) gm/dL Hct 30.8 L (34.0-46.0) % Creatinine (0.52-1.04) mg/dL Glucose (74-99) mg/dL Urine Ketones (Negative) Ur Leukocyte Esterase (Negative) Amorphous Sediment (None) /hpf Urine Mucus (None) /hpf Assessment and Plan Assessment: This is a pleasant 22-year-old 1 para 0 female who presents with pelvic pain, prolonged vaginal bleeding, and slowly falling beta hCG levels. I had a long discussion with the patient about possible diagnoses including a complete or an ectopic . Certainly her hCG levels have fallen significantly in the last 7 days and if it is a spontaneous it appears she has passed all the tissue. She understands that although the ultrasound does not show evidence of an ectopic , given her pelvic pain and abnormal hCG levels this still certainly could be going on. At this point she is stable and I offered her the option of continued observation with serial hCGs versus methotrexate and again close observation and serial hCGs. I do not think she requires surgery at this time. Patient is amendable to trying medical treatment for this. Therefore based on her body surface area were going to give her a milligrams of methotrexate IM now. She is already had normal liver function tests. Her blood type is Rh+. She will have a repeat CBC in the morning and then be discharged home to follow up with me in the office for repeat exam and serial hCGs. (1) Ectopic Current Visit: Yes Status: Acute Code(s): O00.90 - UNSPECIFIED ECTOPIC WITHOUT INTRAUTERINE SNOMED Code(s): 89434572
[2018-06-11 03:52] VITALS: BP 121/72; PULSE 79
--- NOTE | 2018-06-11 06:35 | P.PN ---
Progress Note - Text Progress Note Date: 06/11/18 Patient is seen resting in bed texting on her phone. She slept last evening and states she still is having some discomfort but in general no significant changes. She received methotrexate 80 mg IM. Examination of her abdomen shows be soft without rebound or guarding. Mild tenderness to deep palpation. My impression this is a spontaneous or ectopic . Her treating her as an ectopic is been treated with methotrexate. Patient appears be stable for discharge home follow up with me closely as an outpatient. She is given instructions repeat her beta hCG on Saturday morning see me Saturday afternoon. She also given instructions return to the emergency Department if significant pain or other symptomatology that we discussed.
[2018-06-11 06:36] LABS: Basophils % (A) 0 %; Eosinophils # (A) 0.1 k/uL (0-0.7); Eosinophils % (A) 2 %; HCT 31.1 % (34.0-46.0); HGB 10.5 gm/dL (11.4-16.0); Lymphocytes # (A) 1.7 k/uL (1.0-4.8); Lymphocytes % (A) 36 %; MCH 32.2 pg (25.0-35.0); MCHC 33.6 g/dL (31.0-37.0); MCV 95.9 fL (80.0-100.0); Mean Platelet Volume 6.3; Monocytes # (A) 0.2 k/uL (0-1.0); Monocytes % (A) 4 %; Neutrophils # (A) 2.6 k/uL (1.3-7.7); Neutrophils % (A) 56 %; Platelet Count 272 k/uL (150-450); RBC 3.25 m/uL (3.80-5.40); WBC 4.7 k/uL (3.8-10.6)
--- NOTE | 2018-06-11 06:46 | P.DS ---
Providers Date of admission: 06/10/18 22:44 Expected date of discharge: 06/11/18 Attending physician: Franco Pineda Primary care physician: Dmiple Perez - Discharge Diagnosis(es) (1) Ectopic Current Visit: Yes Status: Acute Hospital Course: Please see dictated H&P for intimate details of this patient's admission. Brief summary this is a pleasant 22-year-old 1 para 0 female who presented to the emergency department with complaints of pelvic pain and vaginal bleeding. Patient has had multiple hCGs has been followed by Dr. Pascual for an abnormal . Ultrasound did not show evidence of an ectopic however due to the patient's clinical symptoms and hCG levels. Assuming that that's what her condition was. Patient was given methotrexate and admitted for observation. Patient's felt to be stable for discharge home follow up with me as an outpatient closely. Repeat hCG on Saturday morning and see me Saturday afternoon. She given strict instructions to return for in the event of worsening ectopic. Patient Condition at Discharge: Stable Plan - Discharge Summary New Discharge Prescriptions: No Action L.acidoph,Paracasei, B.lactis [Probiotic] 1 cap PO DAILY Discharge Medication List L.acidoph,Paracasei, B.lactis [Probiotic] 1 cap PO DAILY 06/10/18 [History] Follow up Appointment(s)/Referral(s): Franco Pineda MD [STAFF PHYSICIAN] - 06/16/18 1:30 pm Patient Instructions/Handouts: Ectopic (DC) Activity/Diet/Wound Care/Special Instructions: No intercourse or anything per vagina. No strenuous activities. Patient to be off work until seen by me on Saturday. Return to the emergency department a significant abdominal pain as discussed. Discharge Disposition: HOME SELF-CARE
[2018-06-11] MEDS ORDERED: HYDROcodone/APAP 5-325MG 1 EACH TAB PO PRN (07:47)
== END 2018-06-11 09:22 | disposition home or self-care (01) ==
LOC: EC 17:24 → 4FBP 22:44
PROVIDERS: ADMIT Obstetrics & Gynecology; ATTEND Obstetrics & Gynecology
DX: O00.90 Unspecified ectopic pregnancy without intrauterine pregnancy (principal); E28.2 Polycystic ovarian syndrome; J45.909 Unspecified asthma, uncomplicated; F17.200 Nicotine dependence, unspecified, uncomplicated; Z88.5 Allergy status to narcotic agent; Z80.9 Family history of malignant neoplasm, unspecified
CPT/HCPCS: 96372; 96376; 96361; 96374; 99285; 36415; 86900; 86901; 80053; 82150; 83690; 85025 ×2; 85027; 86850; 81001; 81025; 84702; 76801; G0378 ×2; J9260; J1170

== ENCOUNTER → 2018-06-16 | Outpatient (CLI) | payer BC | END | disposition home or self-care (01) | LOC: LABWHC1 09:28 | PROVIDERS: ATTEND Obstetrics & Gynecology | DX: O00.90 Unspecified ectopic pregnancy without intrauterine pregnancy (principal) | CPT/HCPCS: 36415; 84702 ==

== ENCOUNTER → 2018-06-24 | Outpatient (CLI) | payer BC | END | disposition home or self-care (01) | LOC: LABWHC1 12:16 | PROVIDERS: ATTEND Obstetrics & Gynecology | DX: Z34.00 Encounter for supervision of normal first pregnancy, unspecified trimester (principal) | CPT/HCPCS: 36415; 84702 ==

== ENCOUNTER 2018-08-22 23:47 | Emergency (ER) | payer BC ==
[2018-08-23 01:14] LABS: Amorphous Sediment,Urine Rare /hpf; Appearance,Urine Cloudy (Clear); Bacteria,Urine Few /hpf; Bilirubin,Urine Negative (Negative); Blood,Urine Moderate (Negative); Color,Urine Yellow; Glucose,Urine (UA) Negative (Negative); Ketones,Urine Negative (Negative); Leukocyte Esterase,Urine Trace (Negative); Nitrite,Urine Negative (Negative); Protein,Urine Trace (Negative); Squamous Epithelial Cell,Urine 1 /hpf (0-4); WBC,Urine 4 /hpf (0-5)
--- NOTE | 2018-08-23 02:13 | ED ---
Female Urogenital HPI - General Chief complaint: Vaginal Bleeding Stated complaint: Poss. Following Miscarriage Time Seen by Provider: 08/23/18 00:05 Source: patient Mode of arrival: ambulatory Limitations: no limitations - History of Present Illness Initial comments: 22-year-old female patient presents to the emergency department with chief complaint of vaginal bleeding. Patient states since yesterday she has been spotting. Patient states she did start to pass clots today. Patient states she is having very vague and mild lower abdominal cramping. States that in April she had similar symptoms and was diagnosed with an ectopic . Patient states that she is feeling fatigued, has no appetite, hasn't been sleeping well, has nipple sensitivity which was consistent with her symptoms from April. States that she did take a test at home which was negative. She denies any fevers or chills. Denies any nausea or vomiting. Patient denies any recent rash, shortness breath, chest pain, diarrhea, constipation, back pain, numbness, tingling, dizziness, weakness, hematuria, dysuria, urinary urgency, urinary frequency, headache, visual changes, or any other complaints. - Related Data Home Medications Medication Instructions Recorded Confirmed L.acidoph,Paracasei, B.lactis 1 cap PO DAILY 06/10/18 06/10/18 [Probiotic] Allergies Allergy/AdvReac Type Severity Reaction Status Date / Time codeine Allergy Anaphylaxis Verified 08/22/18 23:55 Review of Systems ROS Statement: Those systems with pertinent positive or pertinent negative responses have been documented in the HPI. ROS Other: All systems not noted in ROS Statement are negative. Past Medical History Past Medical History: Asthma Additional Past Medical History / Comment(s): PCOS History of Any Multi-Drug Resistant Organisms: None Reported Past Surgical History: No Surgical Hx Reported Past Anesthesia/Blood Transfusion Reactions: No Reported Reaction Past Psychological History: Depression Smoking Status: Current every day smoker Past Alcohol Use History: Occasional Past Drug Use History: Marijuana - Past Family History Mother Family Medical History: Cancer General Exam Limitations: no limitations General appearance: alert, in no apparent distress, other (Physical well- developed, well-nourished adult female patient in no acute distress. Vital signs upon presentation are temperature 99.2F, pulse 111, respirations 17, blood pressure 136/86, pulse ox 100% on room air.) Eye exam: Present: normal appearance, PERRL, EOMI. Absent: scleral icterus, conjunctival injection, periorbital swelling Respiratory exam: Present: normal lung sounds bilaterally. Absent: respiratory distress, wheezes, rales, rhonchi, stridor Cardiovascular Exam: Present: regular rate, normal rhythm, normal heart sounds. Absent: systolic murmur, diastolic murmur, rubs, gallop, clicks GI/Abdominal exam: Present: soft, normal bowel sounds. Absent: distended, tenderness, guarding, rebound, rigid Neurological exam: Present: alert, oriented X3, CN II-XII intact Psychiatric exam: Present: normal affect, normal mood Skin exam: Present: warm, dry, intact, normal color. Absent: rash Course Vital Signs 08/22/18 08/23/18 23:52 02:16 Temperature 99.2 F 98.0 F Pulse Rate 111 H 88 Respiratory 17 18 Rate Blood Pressure 136/86 112/59 O2 Sat by Pulse 100 99 Oximetry Medical Decision Making - Medical Decision Making 22-year-old female patient presents to the emergency department today for evaluation of vaginal bleeding. Patient is concerned she may be and has had negative home test in the past when in fact she was extremely exam ectopic . Physical examination is unremarkable. Urinalysis was unremarkable. We did perform serum quantitative hCG which was negative. Patient symptoms are consistent with menstruation. Did discuss findings with the patient. She'll be discharged home to follow-up with her primary care physician and return parameters discussed in detail. She verbalizes understanding and agrees with this plan. - Lab Data Lab Results 08/23/18 08/23/18 Range/Units 00:15 00:45 HCG, Quant <2.4 mIU/mL Urine Color Yellow Urine Appearance Cloudy H (Clear) Urine pH 7.0 (5.0-8.0) Ur Specific [place] 1.020 (1.001-1.035) Urine Protein Trace H (Negative) Urine Glucose (UA) Negative (Negative) Urine Ketones Negative (Negative) Urine Blood Moderate H (Negative) Urine Nitrite Negative (Negative) Urine Bilirubin Negative (Negative) Urine Urobilinogen 3.0 (<2.0) mg/dL Ur Leukocyte Esterase Trace H (Negative) Urine WBC 4 (0-5) /hpf Ur Squamous Epith Cells 1 (0-4) /hpf Amorphous Sediment Rare H (None) /hpf Urine Bacteria Few H (None) /hpf Disposition Clinical Impression: Menstruation Disposition: HOME SELF-CARE Condition: Good Instructions: Menstruation (ED) Additional Instructions: Increase fluids. Follow up with primary care physician for recheck as soon as possible. Return immediately for new, worsening, or concerning symptoms. Is patient prescribed a controlled substance at d/c from ED?: No Referrals: Ana Musa MD [Primary Care Provider] - 1-2 days Time of Disposition: 02:14
[2018-08-23 02:17] VITALS: BP 112/59; PULSE 88; RESP 18; TEMP 98
== END 2018-08-23 02:19 | disposition home or self-care (01) ==
LOC: EC 23:47
DX: N92.0 Excessive and frequent menstruation with regular cycle (principal); Z32.02 Encounter for pregnancy test, result negative; R63.0 Anorexia; E28.2 Polycystic ovarian syndrome; F17.200 Nicotine dependence, unspecified, uncomplicated; Z88.5 Allergy status to narcotic agent
CPT/HCPCS: 36415; 81001; 84702; 99284

== ENCOUNTER 2020-05-15 15:46 | Inpatient (IN) | payer BC, OTHER ==
[2020-05-15 16:28] LABS: Appearance,Urine Clear (Clear); Bilirubin,Urine Negative (Negative); Blood,Urine Negative (Negative); Color,Urine Colorless; Glucose,Urine (UA) Negative (Negative); Ketones,Urine Negative (Negative); Leukocyte Esterase,Urine Negative (Negative); Nitrite,Urine Negative (Negative); Protein,Urine Negative (Negative); Specific Gravity,Urine 1.002 (1.001-1.035); Urobilinogen,Urine <2.0 mg/dL (<2.0)
[2020-05-15 16:39] LABS: Amphetamine Screen,Urine Not Detected (NotDetected); Barbiturate Screen,Urine Not Detected (NotDetected); Benzodiazepines Screen,Urine Not Detected (NotDetected); Cocaine Screen,Urine Not Detected (NotDetected); Methadone Screen, Urine Not Detected (NotDetected); Opiate Screen,Urine Not Detected (NotDetected); Oxycodone Screen, Urine Not Detected (NotDetected); Phencyclidine Screen,Urine Not Detected (NotDetected); Tricyclic Antidepressant,Urine Not Detected (NotDetected); Urn Cannabinoid Scrn Detected (NotDetected)
--- NOTE | 2020-05-15 18:01 | ED ---
Psych HPI - General Source: patient Mode of arrival: ambulatory <Tiny Patel - Last Filed: 05/15/20 17:55> <Daya Garza - Last Filed: 05/18/20 16:01> - General Chief Complaint: Psychiatric Symptoms Stated Complaint: mental health Time Seen by Provider: 05/15/20 15:52 - History of Present Illness Initial Comments: 24yo female presenting today for chief complaint of suicidal ideations. Patient states she has been suicidal for over a year and has had many plans. Patient denies homicidal ideations. cannot take it anymore. patient has no additional complaints. upon arrival she appears nontoxic but is tearful very cooperative. (Tiny Patel) - Related Data Previous Rx's Medication Instructions Recorded ARIPiprazole [Abilify] 5 mg PO DAILY 30 Days tab 05/18/20 FLUoxetine HCL [PROzac] 30 mg PO DAILY 30 Days cap 05/18/20 Melatonin 6 mg PO HS 30 Days tablet 05/18/20 Nicotine 21Mg/24Hr Patch [Habitrol] 1 patch TRANSDERM DAILY 30 Days 05/18/20 patch Allergies Allergy/AdvReac Type Severity Reaction Status Date / Time codeine Allergy Anaphylaxis Verified 05/15/20 17:30 Review of Systems ROS Other: All systems not noted in ROS Statement are negative. <Tiny Patel - Last Filed: 05/15/20 17:55> ROS Other: All systems not noted in ROS Statement are negative. <Daya Garza - Last Filed: 05/18/20 16:01> ROS Statement: Those systems with pertinent positive or pertinent negative responses have been documented in the HPI. Past Medical History Past Medical History: Asthma Additional Past Medical History / Comment(s): PCOS History of Any Multi-Drug Resistant Organisms: None Reported Past Surgical History: No Surgical Hx Reported Past Anesthesia/Blood Transfusion Reactions: No Reported Reaction Past Psychological History: Depression Smoking Status: Current every day smoker Past Alcohol Use History: Occasional Past Drug Use History: Marijuana - Past Family History Mother Family Medical History: Cancer <Tiny Patel - Last Filed: 05/15/20 17:55> General Exam Limitations: no limitations <Tiny Patel - Last Filed: 05/15/20 17:55> - General Exam Comments Initial Comments: General: The patient is awake and alert Eye: +3 mm pupils are equal, round and reactive to light, extra-ocular movements are intact. No nystagmus. There is normal conjunctiva bilaterally. No signs of icterus. Ears, nose, mouth and throat: There are moist mucous membranes and no oral lesions. Neck: The neck is supple, there is no tenderness or JVD. Cardiovascular: There is a regular rate and rhythm. No murmur, rub or gallop is appreciated. Respiratory: Lungs are clear to auscultation, respirations are non-labored, breath sounds are equal. No wheezes, stridor, rales, or rhonchi. Gastrointestinal: Soft, non-distended, non-tender abdomen without masses or organomegaly noted. There is no rebound or guarding present. Musculoskeletal: Normal ROM, no tenderness. Strength 5/5. Sensation intact. Radial pulses equal bilaterally 2+. Neurological: A&O x 3. CN II-XII intact grossly, There are no obvious motor or sensory deficits. Coordination appears grossly intact. Speech is normal. Skin: Skin is warm and dry and no rashes or lesions are noted. Psychiatric: Cooperative, tearful (Tiny Patel) Course Vital Signs 05/15/20 05/15/20 15:48 18:17 Temperature 98.1 F 98.3 F Pulse Rate 84 76 Respiratory 18 12 Rate Blood Pressure 120/77 120/79 O2 Sat by Pulse 100 99 Oximetry Medical Decision Making <Tiny aPtel - Last Filed: 05/15/20 17:55> - Lab Data Result diagrams: 05/16/20 08:25 05/16/20 08:25 <Daya Garza - Last Filed: 05/18/20 16:01> - Medical Decision Making Med cleared. no attempt at suicide per patient only thoughts. patient evaluated by eps who recommended admission. patient voluntarily agreeable to admission. (Tiny Patel) - Lab Data Lab Results 05/15/20 05/15/20 Range/Units 16:09 16:09 Urine Color Colorless Urine Appearance Clear (Clear) Urine pH 7.0 (5.0-8.0) Ur Specific [place] 1.002 (1.001-1.035) Urine Protein Negative (Negative) Urine Glucose (UA) Negative (Negative) Urine Ketones Negative (Negative) Urine Blood Negative (Negative) Urine Nitrite Negative (Negative) Urine Bilirubin Negative (Negative) Urine Urobilinogen <2.0 (<2.0) mg/dL Ur Leukocyte Esterase Negative (Negative) Urine HCG, Qual Not Detected (Not Detectd) Urine Opiates Screen Not Detected (NotDetected) Ur Oxycodone Screen Not Detected (NotDetected) Urine Methadone Screen Not Detected (NotDetected) Ur Propoxyphene Screen Not Detected (NotDetected) Ur Barbiturates Screen Not Detected (NotDetected) U Tricyclic Antidepress Not Detected (NotDetected) Ur Phencyclidine Scrn Not Detected (NotDetected) Ur Amphetamines Screen Not Detected (NotDetected) U Methamphetamines Scrn Not Detected (NotDetected) U Benzodiazepines Scrn Not Detected (NotDetected) Urine Cocaine Screen Not Detected (NotDetected) U Marijuana (THC) Screen Detected H (NotDetected) Disposition Is patient prescribed a controlled substance at d/c from ED?: No Time of Disposition: 18:01 - Out of Hospital Transfer - Req. Specs Out of Hospital Transfer - Requested Specifics: Psychiatric Non-ICU <Tiny Patel - Last Filed: 05/15/20 17:55> <Daya Garza - Last Filed: 05/18/20 16:01> Clinical Impression: Suicidal ideations Disposition: TRANSFER TO PSYCH HOSP/UNIT Condition: Stable
[2020-05-15] MEDS ORDERED: ZIPRASIDONE 20 MG VIAL IM PRN (18:09)
[2020-05-15] MEDS ORDERED: LORazepam 1 MG TAB PO PRN (18:09)
[2020-05-15] MEDS ORDERED: MAG HYDROX/AL HYDROX/SIMETH 30 ML CUP PO PRN (18:09)
[2020-05-15] MEDS ORDERED: ACETAMINOPHEN TAB 325 MG TAB PO PRN (18:09)
[2020-05-15] MEDS ORDERED: MAGNESIUM HYDROXIDE 2,400 MG/10 ML CUP PO PRN (18:09)
[2020-05-15 19:45] VITALS: RESP 16
[2020-05-15] MEDS ORDERED: diphenhydrAMINE 50 MG CAP PO STA (23:06)
--- NOTE | 2020-05-15 23:06 | P.MDCNMH ---
History of Present Illness H&P Date: 05/15/20 Chief Complaint: medical evaluation 24 year old female with depression patient comes in voluntarily for mental health evaluation due to suicidal ideation over the past few months . she had multiple plans, recently thinking of getting a gun, she does not own one. she denies hearing voices. she denies being on any antidepressant meds. she believes in holistic natural approach though. she denies any fever chills, or URI symptoms, denies any abd pain nausea or vomiting or abd pain patient admits to irregular periods , and her last menstrual cycle was in november of this year. she has negative test in the ED. she admits to smoking cigarettes and marijuana. denies using alcohol on regular basis Review of Systems Pertinent positives as noted in HPI. All other systems were reviewed and are negative Past Medical History Past Medical History: Asthma Additional Past Medical History / Comment(s): PCOS History of Any Multi-Drug Resistant Organisms: None Reported Past Surgical History: No Surgical Hx Reported Past Anesthesia/Blood Transfusion Reactions: No Reported Reaction Past Psychological History: Depression Smoking Status: Current every day smoker Past Alcohol Use History: Occasional Past Drug Use History: Marijuana - Past Family History Mother Family Medical History: Cancer Medications and Allergies Home Medications Medication Instructions Recorded Confirmed Type Melatonin 10 mg PO HS 05/15/20 05/15/20 History Allergies Allergy/AdvReac Type Severity Reaction Status Date / Time codeine Allergy Anaphylaxis Verified 05/15/20 17:30 Physical Exam Vitals: Vital Signs Temp Pulse Pulse Resp BP BP Pulse Ox 05/15/20 19:41 98.4 F 74 16 119/74 97 05/15/20 18:17 98.3 F 76 12 120/79 99 05/15/20 15:48 98.1 F 84 18 120/77 100 Intake and Output 05/15/20 05/15/20 05/16/20 14:59 22:59 06:59 Other: Weight 74.2 kg Constitutional: No acute distress, conversant, pleasant Eyes: Anicteric sclerae, moist conjunctiva, Pupils equal round reactive to light ENMT: NC/AT Oropharynx clear, no erythema, or exudates Neck: Supple, FROM, no masses, or JVD No carotid bruits No thyromegaly Lungs: Clear to auscultation Clear to percussion Normal respiratory effort, no accessory muscle use Cardiovascular: Heart regular in rate and rhythm, No murmurs, gallops, or rubs No peripheral edema Abdominal: Soft Nontender, no guarding, rebound or rigidity Abdomen moving with respiration Normoactive bowel sounds No hepatomegaly, No splenomegaly No palpable mass No abdominal wall hernia noted Skin: Normal temperature, tone, texture, turgor No induration No subcutaneous nodules No rash, lesions No ulcers Extremities: No digital cyanosis No clubbing Pedal pulses intact and symmetrical Radial pulses intact and symmetrical No calf tenderness Psychiatric: Alert and oriented to person, place and time depressed affect fair judgement Neuro Muscles Strength 5/5 in all 4 extremities Sensation to light touch grossly present throughout Cranial nerves II-XII grossly intact No focal sensory deficits Lymphatics: no palpable cervical or supraclavicular , or inguinal lymph nodes Cranial Nerve Examination - Cranial Nerves Cranial Nerve II- Optic: Intact Cranial Nerve III- Oculomotor: Intact Cranial Nerve IV- Trochlear: Intact Cranial Nerve V- Trigeminal: Intact Cranial Nerve - Abducens: Intact Cranial Nerve VII- Facial: Intact Cranial Nerve VIII- Auditory: Intact Cranial Nerve IX- Glossopharyngeal: Intact Cranial Nerve X- Vagus: Intact Cranial Nerve XI- Accessory: Intact Cranial Nerve XII- Hypoglossal: Intact Results Labs: Abnormal Lab Results - Last 24 Hours (Table) 05/15/20 Range/Units 16:09 U Marijuana (THC) Screen Detected H (NotDetected) Assessment and Plan Assessment: suicidal ideation and depression management per psych tobacco smoking encouraged to consider quit smoking, nicotine replacement therapy offered low risk for DVT, ambulatory irregular periods negative test consider outpatient follow up with [facility] [employer] [facility] to rule out polycyctic ovarian syndrome Follow-up labs Thank you for allowing us to participate in the care of this patient. We will follow peripherally. Do not hesitate to contact us with questions. Someone can be reached from the [facility] hospitalist group at all hours of the day at [phone].
[2020-05-16 09:02] LABS: Basophils % (A) 0 %; Eosinophils # (A) 0.5 k/uL (0-0.7); Eosinophils % (A) 7 %; HCT 43.4 % (34.0-46.0); HGB 14.5 gm/dL (11.4-16.0); Lymphocytes # (A) 2.8 k/uL (1.0-4.8); Lymphocytes % (A) 44 %; MCH 31.1 pg (25.0-35.0); MCHC 33.4 g/dL (31.0-37.0); MCV 92.9 fL (80.0-100.0); Mean Platelet Volume 6.4; Monocytes # (A) 0.3 k/uL (0-1.0); Monocytes % (A) 5 %; Neutrophils # (A) 2.8 k/uL (1.3-7.7); Neutrophils % (A) 43 %; Platelet Count 271 k/uL (150-450); RBC 4.67 m/uL (3.80-5.40); RDW 13.3 % (11.5-15.5); WBC 6.5 k/uL (3.8-10.6)
[2020-05-16 09:11] LABS: ALT 51 U/L (4-34); AST 39 U/L (14-36); African American GFR (CKD) >90 (>60 ml/min/1.73 sqM); Albumin 4.3 g/dL (3.5-5.0); Alkaline Phosphatase 85 U/L (38-126); Anion Gap 5 mmol/L; Blood Urea Nitrogen 13 mg/dL (7-17); Calcium 9.4 mg/dL (8.4-10.2); Carbon Dioxide 28 mmol/L (22-30); Chloride 105 mmol/L (98-107); Cholesterol 209 mg/dL (<200); Glucose 92 mg/dL (74-99); HDL Cholesterol 46 mg/dL (40-60); LDL Cholesterol,Calculated 136 mg/dL (0-99); Non-African American GFR(CKD) >90 (>60 ml/min/1.73 sqM); Sodium 138 mmol/L (137-145); Total Bilirubin 0.7 mg/dL (0.2-1.3); Total Protein 7.3 g/dL (6.3-8.2); Triglycerides 136 mg/dL (<150)
[2020-05-16] MEDS ORDERED: FLUoxetine HCL 10 MG CAP PO STA (10:18)
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
[2020-05-16] MEDS: NICOTINE 21MG/24HR PATCH TRANSDERM SCH (15:19)
[2020-05-17] MEDS: NICOTINE 21MG/24HR PATCH TRANSDERM SCH (08:21)
[2020-05-17] MEDS: ARIPiprazole 5 MG TAB PO SCH (08:22)
[2020-05-17] MEDS ORDERED: FLUoxetine HCL 20 MG CAP PO SCH (09:00)
--- NOTE | 2020-05-17 11:27 | P.PN ---
Progress Note - Text Progress Note Date: 05/17/20 Interval History: Patient was seen resting in bed and was directable and agreeable to speak with lyric writer in the office. She was that she feels "overall better." She does express that she feels some drowsiness which may be a side effect of the medication she is taking. She reports that she has spoken to staff regarding her psychosocial stressors and has found this significantly beneficial. She reports that she has been able to cope better. At this time patient denies any suicidal or homical ideations, intent or plan. Patient denies any auditory, visual hallucinations and denies any paranoia or delusions. She has been compliant with her medications. Mental Status Exam: General Appearance: Patient appears to be stated age is alert, directable, and cooperative. Behavior: Patient is calmly seated without any agitated behavior. Speech: Patient's speech is fluent and nonpressured. Mood/Affect: Mood is improving mildly, affect is congruent and constricted. Suicidality/Homicidality: Patient denies having any suicidal or homicidal ideation intent or plan. Perceptions: Patient denies any visual hallucinations and denies any auditory hallucinations Though content/process: There is no evidence of any delusional thought content and thought process is linear and goal-directed. Memory and concentration: AOX3, grossly intact for the purposes of this session Judgment and insight: Improving mildly Assessment A depressive disorder, recurrent, severe Tobacco use disorder Alcohol use disorder, binge type Cannabis use disorder Plan: -Patient continues to meet criteria for inpatient psychiatric admission for symptom stabilization and safety. Patient has signed adult voluntary form and medication consent and was placed in patient's chart. -Medications: Increase Prozac to 30 mg by mouth daily for depression/anxiety Continue Abilify 5 mg by mouth daily for mood stabilization/augmentation of antidepressant. -When necessary Ativan and Geodon for agitation/aggression. -NRT - nicotine patch -SW on board for discharge planning. Encouraged the patient to participate in milieu.
[2020-05-17] MEDS ORDERED: MELATONIN 3 MG TABLET PO SCH (21:00)
[2020-05-18 07:01] VITALS: BP 129/82; PULSE 66; TEMP 98
[2020-05-18] MEDS: ARIPiprazole 5 MG TAB PO SCH (08:46)
[2020-05-18] MEDS: NICOTINE 21MG/24HR PATCH TRANSDERM SCH (08:46)
[2020-05-18] MEDS ORDERED: FLUoxetine HCL 10 MG CAP PO SCH (09:00)
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
== END 2020-05-18 13:45 | disposition home or self-care (01) | DRG 885 ==
LOC: EC 15:46 → 3MHU 18:00
PROVIDERS: ADMIT Psychiatry & Neurology Psychiatry; ATTEND Psychiatry & Neurology Psychiatry
DX: F33.2 Major depressive disorder, recurrent severe without psychotic features (principal); R45.851 Suicidal ideations; F17.200 Nicotine dependence, unspecified, uncomplicated; F12.10 Cannabis abuse, uncomplicated; F10.10 Alcohol abuse, uncomplicated; F41.9 Anxiety disorder, unspecified; G47.00 Insomnia, unspecified; J45.909 Unspecified asthma, uncomplicated; Z79.899 Other long term (current) drug therapy; Z91.410 Personal history of adult physical and sexual abuse; Z91.411 Personal history of adult psychological abuse; Z91.5 Personal history of self-harm
CPT/HCPCS: 80053; 80061; 80306; 81003; 81025; 83036; 84443; 85025; 99285

== ENCOUNTER 2021-06-02 11:53 | Emergency (ER) | payer BC, OTHER ==
[2021-06-02 12:01] VITALS: BP 119/79; PULSE 73; RESP 18; TEMP 97.9
[2021-06-02] MEDS ORDERED: SODIUM CHLORIDE 0.9% 1,000 ML IV STA (12:36)
[2021-06-02] MEDS ORDERED: DICYCLOMINE 10 MG/ML 2 ML AMP IM STA (12:36)
[2021-06-02] MEDS ORDERED: ONDANSETRON 4 MG/2 ML VIAL IVP STA (12:36)
--- NOTE | 2021-06-02 12:39 | ED ---
General Adult HPI - General Source: patient, family, RN notes reviewed Mode of arrival: ambulatory Limitations: no limitations <Roderick Lewis - Last Filed: 06/02/21 15:41> <Min Park - Last Filed: 06/02/21 16:17> - General Chief complaint: Psychiatric Symptoms Stated complaint: abd pain Time Seen by Provider: 06/02/21 12:17 - History of Present Illness Initial comments: Patient is a pleasant 25-year-old female presenting to the emergency department with complaints of abdominal discomfort. Onset of symptoms was yesterday. Patient has nausea with one episode of vomiting. Patient has had approximately 3 episodes of diarrhea over the past 2 days. Abdominal discomfort is more medical however does go towards the right. No dysuria or hematuria. Patient also complains of depression and has suicidal thoughts without plan. No homicidal thoughts. No hallucinations. No significant alcohol or street drug use other than marijuana. (Roderick Lewis) - Related Data Home Medications Medication Instructions Recorded Confirmed FLUoxetine HCL [PROzac] 20 mg PO DAILY 06/02/21 06/02/21 Naltrexone HCl [Revia] 50 mg PO DAILY 06/02/21 06/02/21 Allergies Allergy/AdvReac Type Severity Reaction Status Date / Time codeine Allergy Anaphylaxis Verified 06/02/21 12:50 Review of Systems ROS Other: All systems not noted in ROS Statement are negative. Constitutional: Denies: fever Eyes: Denies: eye pain ENT: Denies: ear pain Respiratory: Denies: cough Cardiovascular: Denies: chest pain Endocrine: Denies: fatigue Gastrointestinal: Reports: as per HPI, abdominal pain, nausea, vomiting, diarrhea Genitourinary: Denies: dysuria Musculoskeletal: Denies: back pain Skin: Denies: rash Neurological: Denies: weakness <Roderick Lewis - Last Filed: 06/02/21 15:41> ROS Other: All systems not noted in ROS Statement are negative. <Min Park - Last Filed: 06/02/21 16:17> ROS Statement: Those systems with pertinent positive or pertinent negative responses have been documented in the HPI. Past Medical History Past Medical History: Asthma Additional Past Medical History / Comment(s): PCOS History of Any Multi-Drug Resistant Organisms: None Reported Past Surgical History: No Surgical Hx Reported Past Anesthesia/Blood Transfusion Reactions: No Reported Reaction Past Psychological History: Depression Smoking Status: Current every day smoker Past Alcohol Use History: Occasional Past Drug Use History: Marijuana - Past Family History Mother Family Medical History: Cancer <Roderick Lewis - Last Filed: 06/02/21 15:41> General Exam Limitations: no limitations General appearance: alert, in no apparent distress Head exam: Present: normocephalic Eye exam: Present: normal appearance Neck exam: Present: normal inspection Respiratory exam: Present: normal lung sounds bilaterally Cardiovascular Exam: Present: regular rate, normal rhythm Expanded Peripheral pulses: 2+: Dorsalis Pedis (R), Dorsalis Pedis (L) GI/Abdominal exam: Present: soft, tenderness (Mild tenderness right lower quadrant). Absent: distended Extremities exam: Present: normal inspection Neurological exam: Present: alert Psychiatric exam: Present: depressed Skin exam: Present: normal color <Roderick Lewis - Last Filed: 06/02/21 15:41> Course <Roderick Lewis - Last Filed: 06/02/21 15:41> <Min Park - Last Filed: 06/02/21 16:17> Vital Signs 06/02/21 11:54 Temperature 97.9 F Pulse Rate 73 Respiratory 18 Rate Blood Pressure 119/79 O2 Sat by Pulse 97 Oximetry - Reevaluation(s) Reevaluation #1: 06/02/21 15:23 Patient was cleared for mental health evaluation (Roderick Lewis) Reevaluation #2: 06/02/21 16:17 The patient was evaluated by the EPS service she will be admitted for inpatient evaluation treatment for major depression recurrent (Min Park) Medical Decision Making - Lab Data Result diagrams: 06/02/21 12:44 06/02/21 12:44 - Radiology Data Radiology results: report reviewed (Computed tomography scan abdomen pelvis shows no acute process) <Roderick Lewis - Last Filed: 06/02/21 15:41> - Lab Data Result diagrams: 06/02/21 12:44 06/02/21 12:44 <Min Park - Last Filed: 06/02/21 16:17> - Medical Decision Making Patient reevaluated and updated. Patient will have probable discharge pending mental health evaluation, who is currently with patient (Roderick Lewis) - Lab Data Lab Results 06/02/21 06/02/21 06/02/21 Range/Units 12:44 12:44 12:44 WBC 6.2 (3.8-10.6) k/uL RBC 4.46 (3.80-5.40) m/uL Hgb 14.3 (11.4-16.0) gm/dL Hct 41.6 (34.0-46.0) % MCV 93.2 (80.0-100.0) fL MCH 32.0 (25.0-35.0) pg MCHC 34.3 (31.0-37.0) g/dL RDW 12.1 (11.5-15.5) % Plt Count 304 (150-450) k/uL MPV 7.2 Neutrophils % 71 % Lymphocytes % 23 % Monocytes % 3 % Eosinophils % 2 % Basophils % 0 % Neutrophils # 4.4 (1.3-7.7) k/uL Lymphocytes # 1.4 (1.0-4.8) k/uL Monocytes # 0.2 (0-1.0) k/uL Eosinophils # 0.1 (0-0.7) k/uL Basophils # 0.0 (0-0.2) k/uL PT 10.5 (9.0-12.0) sec INR 1.0 (<1.2) APTT 22.9 (22.0-30.0) sec Sodium (137-145) mmol/L Potassium (3.5-5.1) mmol/L Chloride (98-107) mmol/L Carbon Dioxide (22-30) mmol/L Anion Gap mmol/L BUN (7-17) mg/dL Creatinine (0.52-1.04) mg/dL Est GFR (CKD-EPI)AfAm (>60 ml/min/1.73 sqM) Est GFR (CKD-EPI)NonAf (>60 ml/min/1.73 sqM) Glucose (74-99) mg/dL Calcium (8.4-10.2) mg/dL Total Bilirubin (0.2-1.3) mg/dL AST (14-36) U/L ALT (4-34) U/L Alkaline Phosphatase (38-126) U/L Total Protein (6.3-8.2) g/dL Albumin (3.5-5.0) g/dL Amylase (30-110) U/L Lipase (23-300) U/L Urine Color Yellow Urine Appearance Cloudy H (Clear) Urine pH 6.5 (5.0-8.0) Ur Specific [place] 1.021 (1.001-1.035) Urine Protein Trace H (Negative) Urine Glucose (UA) Negative (Negative) Urine Ketones Negative (Negative) Urine Blood Negative (Negative) Urine Nitrite Negative (Negative) Urine Bilirubin Negative (Negative) Urine Urobilinogen <2.0 (<2.0) mg/dL Ur Leukocyte Esterase Moderate H (Negative) Urine RBC 7 H (0-5) /hpf Urine WBC 8 H (0-5) /hpf Ur Squamous Epith Cells 15 H (0-4) /hpf Hyaline Casts 1 (0-2) /lpf Urine Mucus Many H (None) /hpf Urine HCG, Qual (Not Detectd) Urine Opiates Screen (NotDetected) Ur Oxycodone Screen (NotDetected) Urine Methadone Screen (NotDetected) Ur Propoxyphene Screen (NotDetected) Ur Barbiturates Screen (NotDetected) U Tricyclic Antidepress (NotDetected) Ur Phencyclidine Scrn (NotDetected) Ur Amphetamines Screen (NotDetected) U Methamphetamines Scrn (NotDetected) U Benzodiazepines Scrn (NotDetected) Urine Cocaine Screen (NotDetected) U Marijuana (THC) Screen (NotDetected) 06/02/21 06/02/21 06/02/21 Range/Units 12:44 12:44 12:44 WBC (3.8-10.6) k/uL RBC (3.80-5.40) m/uL Hgb (11.4-16.0) gm/dL Hct (34.0-46.0) % MCV (80.0-100.0) fL MCH (25.0-35.0) pg MCHC (31.0-37.0) g/dL RDW (11.5-15.5) % Plt Count (150-450) k/uL MPV Neutrophils % % Lymphocytes % % Monocytes % % Eosinophils % % Basophils % % Neutrophils # (1.3-7.7) k/uL Lymphocytes # (1.0-4.8) k/uL Monocytes # (0-1.0) k/uL Eosinophils # (0-0.7) k/uL Basophils # (0-0.2) k/uL PT (9.0-12.0) sec INR (<1.2) APTT (22.0-30.0) sec Sodium 138 (137-145) mmol/L Potassium 4.2 (3.5-5.1) mmol/L Chloride 106 (98-107) mmol/L Carbon Dioxide 20 L (22-30) mmol/L Anion Gap 12 mmol/L BUN 6 L (7-17) mg/dL Creatinine 0.52 (0.52-1.04) mg/dL Est GFR (CKD-EPI)AfAm >90 (>60 ml/min/1.73 sqM) Est GFR (CKD-EPI)NonAf >90 (>60 ml/min/1.73 sqM) Glucose 135 H (74-99) mg/dL Calcium 10.0 (8.4-10.2) mg/dL Total Bilirubin 0.5 (0.2-1.3) mg/dL AST 32 (14-36) U/L ALT 41 H (4-34) U/L Alkaline Phosphatase 72 (38-126) U/L Total Protein 7.6 (6.3-8.2) g/dL Albumin 4.4 (3.5-5.0) g/dL Amylase 60 (30-110) U/L Lipase 68 (23-300) U/L Urine Color Urine Appearance (Clear) Urine pH (5.0-8.0) Ur Specific [place] (1.001-1.035) Urine Protein (Negative) Urine Glucose (UA) (Negative) Urine Ketones (Negative) Urine Blood (Negative) Urine Nitrite (Negative) Urine Bilirubin (Negative) Urine Urobilinogen (<2.0) mg/dL Ur Leukocyte Esterase (Negative) Urine RBC (0-5) /hpf Urine WBC (0-5) /hpf Ur Squamous Epith Cells (0-4) /hpf Hyaline Casts (0-2) /lpf Urine Mucus (None) /hpf Urine HCG, Qual Not Detected (Not Detectd) Urine Opiates Screen Not Detected (NotDetected) Ur Oxycodone Screen Detected H (NotDetected) Urine Methadone Screen Not Detected (NotDetected) Ur Propoxyphene Screen Not Detected (NotDetected) Ur Barbiturates Screen Not Detected (NotDetected) U Tricyclic Antidepress Not Detected (NotDetected) Ur Phencyclidine Scrn Not Detected (NotDetected) Ur Amphetamines Screen Not Detected (NotDetected) U Methamphetamines Scrn Not Detected (NotDetected) U Benzodiazepines Scrn Not Detected (NotDetected) Urine Cocaine Screen Not Detected (NotDetected) U Marijuana (THC) Screen Detected H (NotDetected) Disposition Is patient prescribed a controlled substance at d/c from ED?: No Time of Disposition: 15:43 <Roderick Lewis - Last Filed: 06/02/21 15:41> <Min Park - Last Filed: 06/02/21 16:17> Clinical Impression: Depression, Abdominal pain, Major depression, recurrent Disposition: TRANSFER TO PSYCH HOSP/UNIT Condition: Stable Instructions (If sedation given, give patient instructions): Depression (ED), Abdominal Pain (ED) Additional Instructions: Please do follow-up with mental health services as directed. Please follow-up to primary care physician in the next day or 2 for recheck. Return for thoughts of self-harm, worsening symptoms or any other concerns, fever or abdominal pain. Referrals: Deshaun Mar MD [STAFF PHYSICIAN] - 1-2 days
[2021-06-02 13:08] LABS: Basophils % (A) 0 %; Eosinophils # (A) 0.1 k/uL (0-0.7); Eosinophils % (A) 2 %; HCT 41.6 % (34.0-46.0); HGB 14.3 gm/dL (11.4-16.0); Lymphocytes # (A) 1.4 k/uL (1.0-4.8); Lymphocytes % (A) 23 %; MCHC 34.3 g/dL (31.0-37.0); MCV 93.2 fL (80.0-100.0); Mean Platelet Volume 7.2; Monocytes # (A) 0.2 k/uL (0-1.0); Monocytes % (A) 3 %; Neutrophils # (A) 4.4 k/uL (1.3-7.7); Neutrophils % (A) 71 %; Platelet Count 304 k/uL (150-450); RBC 4.46 m/uL (3.80-5.40); RDW 12.1 % (11.5-15.5); WBC 6.2 k/uL (3.8-10.6)
[2021-06-02 13:13] LABS: Appearance,Urine Cloudy (Clear); Bilirubin,Urine Negative (Negative); Blood,Urine Negative (Negative); Color,Urine Yellow; Glucose,Urine (UA) Negative (Negative); Hyaline Casts,Urine 1 /lpf (0-2); Ketones,Urine Negative (Negative); Leukocyte Esterase,Urine Moderate (Negative); Mucus,Urine Many /hpf; Nitrite,Urine Negative (Negative); PH, Urine 6.5 (5.0-8.0); Protein,Urine Trace (Negative); RBC,Urine 7 /hpf (0-5); Specific Gravity,Urine 1.021 (1.001-1.035); Squamous Epithelial Cell,Urine 15 /hpf (0-4); Urobilinogen,Urine <2.0 mg/dL (<2.0); WBC,Urine 8 /hpf (0-5)
[2021-06-02 13:27] LABS: ALT 41 U/L (4-34); African American GFR (CKD) >90 (>60 ml/min/1.73 sqM); Albumin 4.4 g/dL (3.5-5.0); Amylase 60 U/L (30-110); Anion Gap 12 mmol/L; Blood Urea Nitrogen 6 mg/dL (7-17); Carbon Dioxide 20 mmol/L (22-30); Chloride 106 mmol/L (98-107); Glucose 135 mg/dL (74-99); Lipase 68 U/L (23-300); Non-African American GFR(CKD) >90 (>60 ml/min/1.73 sqM); Sodium 138 mmol/L (137-145); Total Bilirubin 0.5 mg/dL (0.2-1.3); Total Protein 7.6 g/dL (6.3-8.2)
[2021-06-02 13:33] LABS: AST 32 U/L (14-36); Potassium 4.2 mmol/L (3.5-5.1)
[2021-06-02 13:34] LABS: Alkaline Phosphatase 72 U/L (38-126)
[2021-06-02 13:46] LABS: Amphetamine Screen,Urine Not Detected (NotDetected); Barbiturate Screen,Urine Not Detected (NotDetected); Benzodiazepines Screen,Urine Not Detected (NotDetected); Cocaine Screen,Urine Not Detected (NotDetected); Methadone Screen, Urine Not Detected (NotDetected); Opiate Screen,Urine Not Detected (NotDetected); Oxycodone Screen, Urine Detected (NotDetected); Phencyclidine Screen,Urine Not Detected (NotDetected); Tricyclic Antidepressant,Urine Not Detected (NotDetected); Urn Cannabinoid Scrn Detected (NotDetected)
[2021-06-02 13:51] LABS: Partial Thromboplastin Time 22.9 sec (22.0-30.0); Prothrombin Time 10.5 sec (9.0-12.0)
--- NOTE | 2021-06-02 13:54 | CT ---
EXAMINATION TYPE: CT abdomen pelvis w con DATE OF EXAM: 06/02/2021 COMPARISON: None HISTORY: Abd pain CT DLP: 868 mGycm CONTRAST: CT scan of the abdomen and pelvis is performed without Oral Contrast and with IV Contrast, patient in jected with 100 mL of Isovue 300. FINDINGS: LUNG BASES-: No visible nodule. No infiltrate. LIVER/GB: No calcified gallstones. Hepatic steatosis. No space occupying hepatic lesion. Biliary t ree is of normal caliber. PANCREAS: No inflammation. No distinct mass. SPLEEN: No splenic enlargement. No lesion seen. ADRENALS: No nodule. No thickening. KIDNEYS/BLADDER: No hydronephrosis. No nephrolithiasis. No distinct renal mass. Urinary bladder g rossly unremarkable. BOWEL: Normal appendix. Normal bowel caliber. No inflammation. GENITAL ORGANS: Small ovarian follicles noted. No uterine masses seen. No free fluid. LYMPH NODES: No greater than 1cm abdominal or pelvic lymph nodes are appreciated. AORTA: No significant abnormality. OSSEOUS STRUCTURES: No significant abnormality is seen. OTHER: No significant additional abnormality is seen. IMPRESSION: 1. No significant abnormality to account for the patient's symptoms.
== END 2021-06-02 17:24 ==
LOC: EC 11:53
DX: R10.31 Right lower quadrant pain (principal); F33.9 Major depressive disorder, recurrent, unspecified; J45.909 Unspecified asthma, uncomplicated; F17.200 Nicotine dependence, unspecified, uncomplicated; F12.90 Cannabis use, unspecified, uncomplicated; Z88.5 Allergy status to narcotic agent
CPT/HCPCS: 99285; 96374; 96361 ×4; 96372; 82075; 36415; 80053; 82150; 83690; 85025; 85610; 85730; 81001; 81025; 80306; 74177; J0500; J2405; Q9967

== ENCOUNTER 2022-03-10 14:12 | Emergency (ER) | payer BC ==
[2022-03-10 14:26] VITALS: BP 101/79; PULSE 103; RESP 20; TEMP 97.7
[2022-03-10] MEDS ORDERED: ONDANSETRON 4 MG/2 ML VIAL IVP STA (14:36)
[2022-03-10 14:49] LABS: Basophils % (A) 0 %; Eosinophils # (A) 0.2 k/uL (0-0.7); Eosinophils % (A) 2 %; HCT 46.1 % (34.0-46.0); HGB 15.3 gm/dL (11.4-16.0); Lymphocytes # (A) 2.1 k/uL (1.0-4.8); Lymphocytes % (A) 23 %; MCH 31.5 pg (25.0-35.0); MCHC 33.2 g/dL (31.0-37.0); MCV 94.7 fL (80.0-100.0); Mean Platelet Volume 6.8; Monocytes # (A) 0.1 k/uL (0-1.0); Monocytes % (A) 1 %; Neutrophils # (A) 6.9 k/uL (1.3-7.7); Neutrophils % (A) 73 %; Platelet Count 311 k/uL (150-450); RBC 4.86 m/uL (3.80-5.40); RDW 12.6 % (11.5-15.5); WBC 9.5 k/uL (3.8-10.6)
[2022-03-10 14:58] LABS: ALT 37 U/L (4-34); African American GFR (CKD) >90 (>60 ml/min/1.73 sqM); Albumin 4.7 g/dL (3.5-5.0); Amylase 65 U/L (30-110); Anion Gap 12 mmol/L; Blood Urea Nitrogen 5 mg/dL (7-17); Calcium 9.6 mg/dL (8.4-10.2); Carbon Dioxide 21 mmol/L (22-30); Chloride 106 mmol/L (98-107); Glucose 91 mg/dL (74-99); Lipase 110 U/L (23-300); Non-African American GFR(CKD) >90 (>60 ml/min/1.73 sqM); Sodium 139 mmol/L (137-145); Total Bilirubin 0.9 mg/dL (0.2-1.3); Total Protein 7.8 g/dL (6.3-8.2)
[2022-03-10 15:06] LABS: AST 36 U/L (14-36); Alkaline Phosphatase 73 U/L (38-126); Potassium 4.8 mmol/L (3.5-5.1)
[2022-03-10] MEDS ORDERED: SODIUM CHLORIDE 0.9% 1,000 ML IV STA (15:23)
[2022-03-10 15:25] LABS: Appearance,Urine Cloudy (Clear); Bacteria,Urine Occasional /hpf; Bilirubin,Urine Negative (Negative); Blood,Urine Negative (Negative); Color,Urine Yellow; Glucose,Urine (UA) Negative (Negative); Ketones,Urine Trace (Negative); Leukocyte Esterase,Urine Moderate (Negative); Mucus,Urine Many /hpf; Nitrite,Urine Negative (Negative); Protein,Urine 1+ (Negative); RBC,Urine 2 /hpf (0-5); Specific Gravity,Urine 1.026 (1.001-1.035); Squamous Epithelial Cell,Urine 12 /hpf (0-4); Urobilinogen,Urine <2.0 mg/dL (<2.0); WBC,Urine 12 /hpf (0-5)
--- NOTE | 2022-03-10 16:15 | ED ---
General Adult HPI - General Chief complaint: Nausea/Vomiting/Diarrhea Stated complaint: Vomiting past 72 hours Time Seen by Provider: 03/10/22 14:25 Source: patient Mode of arrival: ambulatory Limitations: no limitations - History of Present Illness Initial comments: Patient is a 26-year-old female presents to the emergency room with complaints of nausea vomiting and one episode of diarrhea along with occasional chills. She denies any fevers. She reports that she had similar symptoms approximately one week ago and saw her primary care provider who prescribed her Zofran and tested her for COVID. She received no other medications or treatment. She reports that she did not obtain a Zofran prescription as subsequent symptoms quickly resolved unfortunately 2 days ago symptoms returned and she continues to have nausea vomiting diarrhea. She is only had one episode of diarrhea. She reports having some trouble keeping food and fluids down. She denies any other complaints including any chest pain, shortness of breath, abdominal pain, heada ches, dizziness, urinary frequency, dysuria, blood or mucus in her emesis or stool. She denies is a however she is sexually active and utilizes condoms for contraceptives. Her only other past medical history is asthma and depression. She denies any recent asthma exacerbations. She reports that her mood is doing well. She denies any other complaints or concerns at this time. - Related Data Home Medications Medication Instructions Recorded Confirmed FLUoxetine HCL [PROzac] 20 mg PO DAILY 06/02/21 06/02/21 Naltrexone HCl [Revia] 50 mg PO DAILY 06/02/21 06/02/21 Previous Rx's Medication Instructions Recorded Ciprofloxacin HCl [Cipro] 500 mg PO BID 5 Days #10 tab 03/10/22 Allergies Allergy/AdvReac Type Severity Reaction Status Date / Time codeine Allergy Anaphylaxis Verified 03/10/22 14:25 Review of Systems ROS Statement: Those systems with pertinent positive or pertinent negative responses have been documented in the HPI. ROS Other: All systems not noted in ROS Statement are negative. Past Medical History Past Medical History: Asthma Additional Past Medical History / Comment(s): PCOS History of Any Multi-Drug Resistant Organisms: None Reported Past Surgical History: No Surgical Hx Reported Past Anesthesia/Blood Transfusion Reactions: No Reported Reaction Past Psychological History: Depression Smoking Status: Vaper Past Alcohol Use History: Occasional Past Drug Use History: Marijuana - Past Family History Mother Family Medical History: Cancer General Exam Limitations: no limitations General appearance: alert, in no apparent distress Head exam: Present: atraumatic, normocephalic, normal inspection Eye exam: Present: normal appearance, PERRL, EOMI. Absent: scleral icterus, conjunctival injection, periorbital swelling ENT exam: Present: normal exam, mucous membranes moist Neck exam: Present: normal inspection. Absent: lymphadenopathy Respiratory exam: Present: normal lung sounds bilaterally. Absent: respiratory distress, wheezes, rales, rhonchi, stridor Cardiovascular Exam: Present: regular rate, normal rhythm, normal heart sounds. Absent: systolic murmur, diastolic murmur, rubs, gallop, clicks GI/Abdominal exam: Present: soft, normal bowel sounds. Absent: distended, tenderness, guarding, rebound, rigid, organomegaly Rectal exam: Present: deferred Extremities exam: Present: normal inspection, full ROM, normal capillary refill. Absent: tenderness, pedal edema, joint swelling, calf tenderness Back exam: Present: normal inspection Neurological exam: Present: alert, oriented X3, CN II-XII intact Psychiatric exam: Present: normal affect, normal mood Skin exam: Present: warm, dry, intact, normal color. Absent: rash Course Vital Signs 03/10/22 14:24 Temperature 97.7 F Pulse Rate 103 H Respiratory 20 Rate Blood Pressure 101/79 O2 Sat by Pulse 98 Oximetry Medical Decision Making - Medical Decision Making 26-year-old female who presents with nausea vomiting without significant abdominal pain or other associated symptoms. Concern for , viral etiology along with gastrointestinal etiology and UTI. Will check CBC, CMP, urinalysis, urine for hCG, and lipase along with influenza and COVID swab. Will defer diagnostic imaging in the absence of abdominal pain. Will give Zofran and gentle hydration. Influenza and covid swab negative. CBC overall normal slightly elevated hematocrit noted at 46.1. CMP shows slightly elevated a.l. T at 37 normal AST amylase and lipase is normal. Bicarb slightly low at 31 consistent with vomiting. Urinalysis with +1 protein trace ketones moderate leukocyte esterase WBCs anterior and mucus. She is not . Patient responded well to IV hydration and Zofran able to tolerate oral intake well. Will discharge home with treatment for UTI given associated GI symptoms and possible long duration of UTI symptoms will treat with 1 dose of IV Rocephin now and placed on a 5 day course of Cipro. Case discussed with Dr. Ramirez - Lab Data Result diagrams: 03/10/22 14:41 03/10/22 14:41 Lab Results 03/10/22 03/10/22 03/10/22 Range/Units 14:41 14:41 14:57 WBC 9.5 (3.8-10.6) k/uL RBC 4.86 (3.80-5.40) m/uL Hgb 15.3 (11.4-16.0) gm/dL Hct 46.1 H (34.0-46.0) % MCV 94.7 (80.0-100.0) fL MCH 31.5 (25.0-35.0) pg MCHC 33.2 (31.0-37.0) g/dL RDW 12.6 (11.5-15.5) % Plt Count 311 (150-450) k/uL MPV 6.8 Neutrophils % 73 % Lymphocytes % 23 % Monocytes % 1 % Eosinophils % 2 % Basophils % 0 % Neutrophils # 6.9 (1.3-7.7) k/uL Lymphocytes # 2.1 (1.0-4.8) k/uL Monocytes # 0.1 (0-1.0) k/uL Eosinophils # 0.2 (0-0.7) k/uL Basophils # 0.0 (0-0.2) k/uL Sodium 139 (137-145) mmol/L Potassium 4.8 (3.5-5.1) mmol/L Chloride 106 (98-107) mmol/L Carbon Dioxide 21 L (22-30) mmol/L Anion Gap 12 mmol/L BUN 5 L (7-17) mg/dL Creatinine 0.47 L (0.52-1.04) mg/dL Est GFR (CKD-EPI)AfAm >90 (>60 ml/min/1.73 sqM) Est GFR (CKD-EPI)NonAf >90 (>60 ml/min/1.73 sqM) Glucose 91 (74-99) mg/dL Calcium 9.6 (8.4-10.2) mg/dL Total Bilirubin 0.9 (0.2-1.3) mg/dL AST 36 (14-36) U/L ALT 37 H (4-34) U/L Alkaline Phosphatase 73 (38-126) U/L Total Protein 7.8 (6.3-8.2) g/dL Albumin 4.7 (3.5-5.0) g/dL Amylase 65 (30-110) U/L Lipase 110 (23-300) U/L Urine Color Yellow Urine Appearance Cloudy H (Clear) Urine pH 6.0 (5.0-8.0) Ur Specific [place] 1.026 (1.001-1.035) Urine Protein 1+ H (Negative) Urine Glucose (UA) Negative (Negative) Urine Ketones Trace H (Negative) Urine Blood Negative (Negative) Urine Nitrite Negative (Negative) Urine Bilirubin Negative (Negative) Urine Urobilinogen <2.0 (<2.0) mg/dL Ur Leukocyte Esterase Moderate H (Negative) Urine RBC 2 (0-5) /hpf Urine WBC 12 H (0-5) /hpf Ur Squamous Epith Cells 12 H (0-4) /hpf Urine Bacteria Occasional H (None) /hpf Urine Mucus Many H (None) /hpf Urine HCG, Qual (Not Detectd) Coronavirus (PCR) (Not Detectd) Influenza Type A RNA (Not Detectd) Influenza Type B (PCR) (Not Detectd) 03/10/22 03/10/22 03/10/22 Range/Units 14:57 15:05 15:05 WBC (3.8-10.6) k/uL RBC (3.80-5.40) m/uL Hgb (11.4-16.0) gm/dL Hct (34.0-46.0) % MCV (80.0-100.0) fL MCH (25.0-35.0) pg MCHC (31.0-37.0) g/dL RDW (11.5-15.5) % Plt Count (150-450) k/uL MPV Neutrophils % % Lymphocytes % % Monocytes % % Eosinophils % % Basophils % % Neutrophils # (1.3-7.7) k/uL Lymphocytes # (1.0-4.8) k/uL Monocytes # (0-1.0) k/uL Eosinophils # (0-0.7) k/uL Basophils # (0-0.2) k/uL Sodium (137-145) mmol/L Potassium (3.5-5.1) mmol/L Chloride (98-107) mmol/L Carbon Dioxide (22-30) mmol/L Anion Gap mmol/L BUN (7-17) mg/dL Creatinine (0.52-1.04) mg/dL Est GFR (CKD-EPI)AfAm (>60 ml/min/1.73 sqM) Est GFR (CKD-EPI)NonAf (>60 ml/min/1.73 sqM) Glucose (74-99) mg/dL Calcium (8.4-10.2) mg/dL Total Bilirubin (0.2-1.3) mg/dL AST (14-36) U/L ALT (4-34) U/L Alkaline Phosphatase (38-126) U/L Total Protein (6.3-8.2) g/dL Albumin (3.5-5.0) g/dL Amylase (30-110) U/L Lipase (23-300) U/L Urine Color Urine Appearance (Clear) Urine pH (5.0-8.0) Ur Specific [place] (1.001-1.035) Urine Protein (Negative) Urine Glucose (UA) (Negative) Urine Ketones (Negative) Urine Blood (Negative) Urine Nitrite (Negative) Urine Bilirubin (Negative) Urine Urobilinogen (<2.0) mg/dL Ur Leukocyte Esterase (Negative) Urine RBC (0-5) /hpf Urine WBC (0-5) /hpf Ur Squamous Epith Cells (0-4) /hpf Urine Bacteria (None) /hpf Urine Mucus (None) /hpf Urine HCG, Qual Not Detected (Not Detectd) Coronavirus (PCR) Not Detected (Not Detectd) Influenza Type A RNA Not Detected (Not Detectd) Influenza Type B (PCR) Not Detected (Not Detectd) Disposition Clinical Impression: UTI (urinary tract infection), Nausea & vomiting Disposition: HOME SELF-CARE Condition: Stable Instructions (If sedation given, give patient instructions): Urinary Tract Infection in Women (ED), Acute Nausea and Vomiting (ED) Additional Instructions: Please complete course of antibiotics. Continue good fluid intake drinking plenty of water and avoiding caffeinated products. Please belt picker prescription prescribed by her primary care provider of [facility] to use for nausea if needed. Please follow-up with your primary care provider. Please return to the Emergency Department if symptoms worsen or any other concerns. Prescriptions: Ciprofloxacin HCl [Cipro] 500 mg PO BID 5 Days #10 tab Is patient prescribed a controlled substance at d/c from ED?: No Referrals: Ana Musa MD [Primary Care Provider] - 1-2 days Time of Disposition: 16:49
[2022-03-10] MEDS ORDERED: cefTRIAXone IN SWFI 1,000 MG/10 ML SYRINGE IVP STA (16:25)
== END 2022-03-10 17:45 | disposition home or self-care (01) ==
LOC: EC 14:12
DX: N39.0 Urinary tract infection, site not specified (principal); Z20.822 Contact with and (suspected) exposure to COVID-19; R74.01 Elevation of levels of liver transaminase levels; J45.909 Unspecified asthma, uncomplicated; F17.290 Nicotine dependence, other tobacco product, uncomplicated; Z88.5 Allergy status to narcotic agent
CPT/HCPCS: 36415; 80053; 82150; 83690; 85025; 81001; 81025; 87086; 87502; 87635; 99284; 96374; 96361; 96375; J2405; J0696

== ENCOUNTER 2023-08-27 11:14 | Emergency (ER) | payer BC ==
[2023-08-27 11:51] VITALS: RESP 18
--- NOTE | 2023-08-27 11:54 | ED ---
Nausea/Vomiting/Diarrhea HPI - General Chief complaint: Nausea/Vomiting/Diarrhea Stated complaint: vomiting Time Seen by Provider: 08/27/23 11:51 Source: patient, RN notes reviewed Mode of arrival: ambulatory Limitations: no limitations - History of Present Illness Initial comments: This is a 27 year old female who presents to the emergency department for abdominal pain, nausea, and vomiting. She relapsed on alcohol, cocaine, and nitrous recently, and most recently used these 2 days ago. After she started using these substances again, she started to develop the abdominal pain, nausea, and vomiting. States that the abdominal pain is described as cramping related to all of the vomiting. States that she does not tolerate alcohol well, however when she relapses she tends to develop these symptoms. She has been able to keep down a few sips of water. Denies any fevers or chills. MD complaint: nausea, vomiting, abdominal pain - Related Data Home Medications Medication Instructions Recorded Confirmed FLUoxetine HCL [PROzac] 20 mg PO DAILY 06/02/21 06/02/21 Naltrexone HCl [Revia] 50 mg PO DAILY 06/02/21 06/02/21 Previous Rx's Medication Instructions Recorded Ciprofloxacin HCl [Cipro] 500 mg PO BID 5 Days #10 tab 03/10/22 Famotidine [Pepcid] 20 mg PO BID #28 tablet 10/12/22 Ondansetron Odt [Zofran Odt] 4 mg PO Q8HR PRN #30 tab 10/13/22 Ondansetron Odt [Zofran Odt] 4 mg PO Q8HR PRN #15 tab 08/27/23 Allergies Allergy/AdvReac Type Severity Reaction Status Date / Time codeine Allergy Anaphylaxis Verified 08/27/23 11:43 Review of Systems ROS Statement: Those systems with pertinent positive or pertinent negative responses have been documented in the HPI. ROS Other: All systems not noted in ROS Statement are negative. Past Medical History Past Medical History: Asthma Additional Past Medical History / Comment(s): PCOS History of Any Multi-Drug Resistant Organisms: None Reported Past Surgical History: No Surgical Hx Reported Past Anesthesia/Blood Transfusion Reactions: No Reported Reaction Past Psychological History: Depression Smoking Status: Vaper Past Alcohol Use History: Occasional Past Drug Use History: Cocaine, Marijuana - Past Family History Mother Family Medical History: Cancer General Exam - General Exam Comments Initial Comments: Visual Physical Exam Vital signs reviewed General: Well-appearing, nontoxic, no acute distress. Head: Normocephalic, atraumatic Eyes: PERRLA, EOMI ENT: Airway patent Chest: Nonlabored breathing Skin: No visual rash, normal skin tone Neuro: Alert and oriented 3 Musculoskeletal: No gross abnormalities Limitations: no limitations General appearance: alert, in no apparent distress Head exam: Present: atraumatic, normocephalic, normal inspection Respiratory exam: Present: normal lung sounds bilaterally. Absent: respiratory distress, wheezes, rales, rhonchi, stridor Cardiovascular Exam: Present: regular rate, normal rhythm, normal heart sounds. Absent: systolic murmur, diastolic murmur, rubs, gallop, clicks GI/Abdominal exam: Present: soft, normal bowel sounds. Absent: distended, tenderness Neurological exam: Present: alert, oriented X3, CN II-XII intact Psychiatric exam: Present: normal affect, normal mood Skin exam: Present: warm, dry, intact, normal color. Absent: rash Course Vital Signs 08/27/23 08/27/23 11:40 14:12 Temperature 99 F 98.2 F Pulse Rate 79 92 Respiratory 18 18 Rate Blood Pressure 123/80 111/76 O2 Sat by Pulse 98 97 Oximetry Medical Decision Making - Medical Decision Making This is a 27-year-old female who presents to the emergency department for nausea and vomiting Was pt. sent in by a medical professional or institution? @ -No Did you speak to anyone other than the patient for history? @ -No Did you review nursing and triage notes? @ -Yes, and I agree, it is accurate with regards to the patient's symptoms. Were old charts reviewed? @ -No Differential Diagnosis? @ -Differential Nausea and Vomiting: Gastroenteritis, cholecystitis, appendicitis, pancreatitis, migraine, benign positional vertigo, food borne illness, pyelonephritis, irritable bowel syndrome, influenza, Covid, GERD, incarcerated hernia, intestinal obstruction, this is not meant to be an all-inclusive list. EKG interpreted by me (3pts min.)? @ -Not obtained X-rays interpreted by me (1pt min.)? @ -Not obtained CT interpreted by me (1pt min.)? @ -Not obtained U/S interpreted by me (1pt. min.)? @ -Not obtained What testing was considered but not performed? (CT, X-rays, U/S, labs)? Why? @ -None What meds were considered but not given? Why? @ -None Did you discuss the management of the patient with other professionals? @ -No Did you reconcile home meds? @ -No Was smoking cessation discussed for >3mins.? @ -I discussed smoking cessation for greater than 3 minutes. The risk of smoking were discussed with the patient including but not limited to risks of cancer, stroke, coronary artery disease and COPD. Also discussed with patient were multiple methods of quitting smoking. Lastly we discussed the financial cost of smoking. Was critical care preformed (if so, how long)? @ -No Were there social determinants of health that impacted care today? How? (Homelessness, low income, unemployed, alcoholism, drug addiction, transportation, low edu. Level, literacy, decrease access to med. care, senior care, rehab)? @ -Alcoholism and polysubstance abuse, leading to her symptoms and visit today. Was there de-escalation of care discussed even if they declined? (Discuss DNR or withdrawal of care, Hospice)? @ -No What co-morbidities impacted this encounter? (DM, HTN, Smoking, COPD, CAD, Cancer, CVA, Hep., AIDS, mental health diagnosis, sleep apnea, morbid obesity)? @ -Alcohlism, drug addiction Was patient admitted / discharged? @ -Discharged. Lab work obtained and found to be unremarkable. She had a very mild elevation in liver enzymes and lipase, not to the point to suggest a pancreatitis. Alcohol level negative. Urine drug screen positive for marijuana and cocaine. Her symptoms were well controlled in the emergency department with IV fluids, Zofran, and famotidine. She was tolerating oral intake and felt stable for discharge home. Prescription for Zofran provided with dosing instructions reviewed. Advised she slowly advance her diet as tolerated and remain well-hydrated. Patient educated on the need to avoid alcohol use and illicit drug use, as it is contributing to her symptoms and increases her risk for other medical problems. Also recommended she look into rehabilitation options or other resources to help her in this process. Undiagnosed new problem with uncertain prognosis? @ -None Drug Therapy requiring intensive monitoring for toxicity (Heparin, Nitro, Insulin, Cardizem)? @ -None Were any procedures done? @ -None Diagnosis/symptom? @ -Nausea/vomiting Acute, or Chronic, or Acute on Chronic? @ -Acute Uncomplicated (without systemic symptoms) or Complicated (systemic symptoms)? @ -Uncomplicated Side effects of treatment? @ -None Exacerbation, Progression, or Severe Exacerbation] @ -Not applicable Poses a threat to life or bodily function? @ -No Diagnosis/symptom? @ -Alcoholism, polysubstance abuse Acute, or Chronic, or Acute on Chronic? @ -Chronic Uncomplicated (without systemic symptoms) or Complicated (systemic symptoms)? @ -Uncomplicated Side effects of treatment? @ -None Exacerbation, Progression, or Severe Exacerbation] @ -Exacerbation Poses a threat to life or bodily function? @ -These increase her risk for other health problems. Return precautions reviewed in depth, the patient is instructed to return to the emergency department with any new, worsening, or concerning symptoms. Patient verbalized understanding. This case was discussed in detail with the attending ED physician, Dr. Jonas. Presentation, findings, and treatment plan discussed in detail as well. - Lab Data Result diagrams: 08/27/23 12:20 08/27/23 12:20 Lab Results 08/27/23 08/27/23 08/27/23 Range/Units 12:20 12:20 12:20 WBC 6.6 (3.8-10.6) k/uL RBC 4.45 (3.80-5.40) m/uL Hgb 14.5 (11.4-16.0) gm/dL Hct 41.3 (34.0-46.0) % MCV 92.6 (80.0-100.0) fL MCH 32.6 (25.0-35.0) pg MCHC 35.2 (31.0-37.0) g/dL RDW 12.4 (11.5-15.5) % Plt Count 286 (150-450) k/uL MPV 6.8 Neutrophils % 62 % Lymphocytes % 32 % Monocytes % 3 % Eosinophils % 1 % Basophils % 0 % Neutrophils # 4.0 (1.3-7.7) k/uL Lymphocytes # 2.1 (1.0-4.8) k/uL Monocytes # 0.2 (0-1.0) k/uL Eosinophils # 0.1 (0-0.7) k/uL Basophils # 0.0 (0-0.2) k/uL Sodium (137-145) mmol/L Potassium (3.5-5.1) mmol/L Chloride (98-107) mmol/L Carbon Dioxide (22-30) mmol/L Anion Gap mmol/L BUN (7-17) mg/dL Creatinine (0.52-1.04) mg/dL Est GFR (CKD-EPI)AfAm (>60 ml/min/1.73 sqM) Est GFR (CKD-EPI)NonAf (>60 ml/min/1.73 sqM) Glucose (74-99) mg/dL Calcium (8.4-10.2) mg/dL Total Bilirubin (0.2-1.3) mg/dL AST (14-36) U/L ALT (4-34) U/L Alkaline Phosphatase (38-126) U/L Total Protein (6.3-8.2) g/dL Albumin (3.5-5.0) g/dL Amylase (30-110) U/L Lipase (23-300) U/L Urine Color Colorless Urine Appearance Clear (Clear) Urine pH 7.5 (5.0-8.0) Ur Specific [place] 1.005 (1.001-1.035) Urine Protein Negative (Negative) Urine Glucose (UA) Negative (Negative) Urine Ketones Negative (Negative) Urine Blood Negative (Negative) Urine Nitrite Negative (Negative) Urine Bilirubin Negative (Negative) Urine Urobilinogen <2.0 (<2.0) mg/dL Ur Leukocyte Esterase Small H (Negative) Urine RBC 2 (0-5) /hpf Urine WBC 5 (0-5) /hpf Ur Squamous Epith Cells 6 H (0-4) /hpf Urine Bacteria Rare H (None) /hpf Urine Mucus Rare H (None) /hpf Urine HCG, Qual Not Detected (Not Detectd) Urine Opiates Screen Not Detected (NotDetected) Ur Oxycodone Screen Not Detected (NotDetected) Urine Methadone Screen Not Detected (NotDetected) Ur Barbiturates Screen Not Detected (NotDetected) U Tricyclic Antidepress Not Detected (NotDetected) Ur Phencyclidine Scrn Not Detected (NotDetected) Ur Amphetamines Screen Not Detected (NotDetected) U Methamphetamines Scrn Not Detected (NotDetected) U Benzodiazepines Scrn Not Detected (NotDetected) Urine Cocaine Screen Detected H (NotDetected) U Marijuana (THC) Screen Detected H (NotDetected) Serum Alcohol mg/dL Influenza Type A (PCR) (Not Detectd) Influenza Type B (PCR) (Not Detectd) RSV (PCR) (Not Detectd) SARS-CoV-2 (PCR) (Not Detectd) 08/27/23 08/27/23 Range/Units 12:20 12:20 WBC (3.8-10.6) k/uL RBC (3.80-5.40) m/uL Hgb (11.4-16.0) gm/dL Hct (34.0-46.0) % MCV (80.0-100.0) fL MCH (25.0-35.0) pg MCHC (31.0-37.0) g/dL RDW (11.5-15.5) % Plt Count (150-450) k/uL MPV Neutrophils % % Lymphocytes % % Monocytes % % Eosinophils % % Basophils % % Neutrophils # (1.3-7.7) k/uL Lymphocytes # (1.0-4.8) k/uL Monocytes # (0-1.0) k/uL Eosinophils # (0-0.7) k/uL Basophils # (0-0.2) k/uL Sodium 138 (137-145) mmol/L Potassium 4.1 (3.5-5.1) mmol/L Chloride 103 (98-107) mmol/L Carbon Dioxide 27 (22-30) mmol/L Anion Gap 8 mmol/L BUN 8 (7-17) mg/dL Creatinine 0.52 (0.52-1.04) mg/dL Est GFR (CKD-EPI)AfAm >90 (>60 ml/min/1.73 sqM) Est GFR (CKD-EPI)NonAf >90 (>60 ml/min/1.73 sqM) Glucose 96 (74-99) mg/dL Calcium 9.2 (8.4-10.2) mg/dL Total Bilirubin 0.8 (0.2-1.3) mg/dL AST 40 H (14-36) U/L ALT 42 H (4-34) U/L Alkaline Phosphatase 87 (38-126) U/L Total Protein 7.5 (6.3-8.2) g/dL Albumin 4.4 (3.5-5.0) g/dL Amylase 103 (30-110) U/L Lipase 583 H (23-300) U/L Urine Color Urine Appearance (Clear) Urine pH (5.0-8.0) Ur Specific [place] (1.001-1.035) Urine Protein (Negative) Urine Glucose (UA) (Negative) Urine Ketones (Negative) Urine Blood (Negative) Urine Nitrite (Negative) Urine Bilirubin (Negative) Urine Urobilinogen (<2.0) mg/dL Ur Leukocyte Esterase (Negative) Urine RBC (0-5) /hpf Urine WBC (0-5) /hpf Ur Squamous Epith Cells (0-4) /hpf Urine Bacteria (None) /hpf Urine Mucus (None) /hpf Urine HCG, Qual (Not Detectd) Urine Opiates Screen (NotDetected) Ur Oxycodone Screen (NotDetected) Urine Methadone Screen (NotDetected) Ur Barbiturates Screen (NotDetected) U Tricyclic Antidepress (NotDetected) Ur Phencyclidine Scrn (NotDetected) Ur Amphetamines Screen (NotDetected) U Methamphetamines Scrn (NotDetected) U Benzodiazepines Scrn (NotDetected) Urine Cocaine Screen (NotDetected) U Marijuana (THC) Screen (NotDetected) Serum Alcohol <10 mg/dL Influenza Type A (PCR) Not Detected (Not Detectd) Influenza Type B (PCR) Not Detected (Not Detectd) RSV (PCR) Not Detected (Not Detectd) SARS-CoV-2 (PCR) Not Detected (Not Detectd) Disposition Clinical Impression: Nausea and vomiting, Nicotine dependence, Polysubstance abuse, Alcohol abuse Disposition: HOME SELF-CARE Instructions (If sedation given, give patient instructions): Acute Nausea and Vomiting (ED) Additional Instructions: Return to the emergency department with any new, worsening, or concerning symptoms. Take the Zofran up to every 8 hours as needed for nausea and vomiting. Slowly advance your diet as tolerated and remain well hydrated. Follow up with your primary care provider in 1-2 days. Prescriptions: Ondansetron Odt [Zofran Odt] 4 mg PO Q8HR PRN #15 tab PRN Reason: Nausea And Vomiting Is patient prescribed a controlled substance at d/c from ED?: No Referrals: None,Stated [Primary Care Provider] - 1-2 days Time of Disposition: 13:56
[2023-08-27] MEDS ORDERED: KETOROLAC 15 MG/ML 1 ML VIAL IVP STA (12:28)
[2023-08-27] MEDS ORDERED: ONDANSETRON 4 MG/2 ML VIAL IVP STA (12:28)
[2023-08-27] MEDS ORDERED: FAMOTIDINE 20 MG/2 ML VIAL IV STA (12:28)
[2023-08-27] MEDS ORDERED: SODIUM CHLORIDE 0.9% 1,000 ML IV STA (12:28)
[2023-08-27 12:37] LABS: Basophils % (A) 0 %; Eosinophils # (A) 0.1 k/uL (0-0.7); Eosinophils % (A) 1 %; HCT 41.3 % (34.0-46.0); HGB 14.5 gm/dL (11.4-16.0); Lymphocytes # (A) 2.1 k/uL (1.0-4.8); Lymphocytes % (A) 32 %; MCH 32.6 pg (25.0-35.0); MCHC 35.2 g/dL (31.0-37.0); MCV 92.6 fL (80.0-100.0); Mean Platelet Volume 6.8; Monocytes # (A) 0.2 k/uL (0-1.0); Monocytes % (A) 3 %; Neutrophils % (A) 62 %; Platelet Count 286 k/uL (150-450); RBC 4.45 m/uL (3.80-5.40); RDW 12.4 % (11.5-15.5); WBC 6.6 k/uL (3.8-10.6)
[2023-08-27 13:07] LABS: ALT 42 U/L (4-34); AST 40 U/L (14-36); African American GFR (CKD) >90 (>60 ml/min/1.73 sqM); Albumin 4.4 g/dL (3.5-5.0); Alcohol <10 mg/dL; Alkaline Phosphatase 87 U/L (38-126); Amylase 103 U/L (30-110); Anion Gap 8 mmol/L; Blood Urea Nitrogen 8 mg/dL (7-17); Calcium 9.2 mg/dL (8.4-10.2); Carbon Dioxide 27 mmol/L (22-30); Chloride 103 mmol/L (98-107); Glucose 96 mg/dL (74-99); Lipase 583 U/L (23-300); Non-African American GFR(CKD) >90 (>60 ml/min/1.73 sqM); Potassium 4.1 mmol/L (3.5-5.1); Sodium 138 mmol/L (137-145); Total Bilirubin 0.8 mg/dL (0.2-1.3); Total Protein 7.5 g/dL (6.3-8.2)
[2023-08-27] MEDS ORDERED: ONDANSETRON 4 MG ODT STARTER PACK 2 TAB BTL PO STA (13:55)
[2023-08-27 14:23] LABS: Appearance,Urine Clear (Clear); Bacteria,Urine Rare /hpf; Bilirubin,Urine Negative (Negative); Blood,Urine Negative (Negative); Color,Urine Colorless; Glucose,Urine (UA) Negative (Negative); Ketones,Urine Negative (Negative); Leukocyte Esterase,Urine Small (Negative); Mucus,Urine Rare /hpf; Nitrite,Urine Negative (Negative); PH, Urine 7.5 (5.0-8.0); Protein,Urine Negative (Negative); RBC,Urine 2 /hpf (0-5); Specific Gravity,Urine 1.005 (1.001-1.035); Squamous Epithelial Cell,Urine 6 /hpf (0-4); Urobilinogen,Urine <2.0 mg/dL (<2.0); WBC,Urine 5 /hpf (0-5)
[2023-08-27 14:27] LABS: Amphetamine Screen,Urine Not Detected (NotDetected); Benzodiazepines Screen,Urine Not Detected (NotDetected); Cocaine Screen,Urine Detected (NotDetected); Opiate Screen,Urine Not Detected (NotDetected); Phencyclidine Screen,Urine Not Detected (NotDetected); Tricyclic Antidepressant,Urine Not Detected (NotDetected); Urn Cannabinoid Scrn Detected (NotDetected)
[2023-08-27 14:28] LABS: Barbiturate Screen,Urine Not Detected (NotDetected); Methadone Screen, Urine Not Detected (NotDetected); Oxycodone Screen, Urine Not Detected (NotDetected)
[2023-08-27 14:34] VITALS: BP 111/76; PULSE 92; TEMP 98.2
== END 2023-08-27 15:01 | disposition home or self-care (01) ==
LOC: EC 11:14
DX: F19.10 Other psychoactive substance abuse, uncomplicated (principal); F10.10 Alcohol abuse, uncomplicated; J45.909 Unspecified asthma, uncomplicated; F17.290 Nicotine dependence, other tobacco product, uncomplicated; F12.90 Cannabis use, unspecified, uncomplicated; Z88.5 Allergy status to narcotic agent; Z20.822 Contact with and (suspected) exposure to COVID-19; Y90.0 Blood alcohol level of less than 20 mg/100 ml
CPT/HCPCS: 99284; 96374; 96375 ×2; 96361 ×2; 36415; 80053; 82150; 83690; 85025; 81001; 81025; 80306; 80320; 87636; J2405; J3490; J1885; S0119

== ENCOUNTER 2023-11-17 14:30 | Emergency (ER) | payer BC ==
[2023-11-17 14:52] VITALS: RESP 18
[2023-11-17 14:59] LABS: Basophils % (A) 0 %; Eosinophils # (A) 0.1 k/uL (0-0.7); Eosinophils % (A) 3 %; HCT 41.1 % (34.0-46.0); HGB 13.8 gm/dL (11.4-16.0); Lymphocytes # (A) 1.9 k/uL (1.0-4.8); Lymphocytes % (A) 37 %; MCH 31.9 pg (25.0-35.0); MCHC 33.6 g/dL (31.0-37.0); Mean Platelet Volume 7.1; Monocytes # (A) 0.2 k/uL (0-1.0); Monocytes % (A) 4 %; Neutrophils # (A) 2.7 k/uL (1.3-7.7); Neutrophils % (A) 54 %; Platelet Count 345 k/uL (150-450); RBC 4.33 m/uL (3.80-5.40); RDW 14.3 % (11.5-15.5)
[2023-11-17 15:13] LABS: ALT 56 U/L (4-34); AST 49 U/L (14-36); African American GFR (CKD) >90 (>60 ml/min/1.73 sqM); Albumin 4.6 g/dL (3.5-5.0); Alkaline Phosphatase 69 U/L (38-126); Anion Gap 11 mmol/L; Blood Urea Nitrogen 12 mg/dL (7-17); Calcium 9.6 mg/dL (8.4-10.2); Carbon Dioxide 22 mmol/L (22-30); Chloride 104 mmol/L (98-107); Glucose 90 mg/dL (74-99); Non-African American GFR(CKD) >90 (>60 ml/min/1.73 sqM); Sodium 137 mmol/L (137-145); Total Bilirubin 0.5 mg/dL (0.2-1.3); Total Protein 7.7 g/dL (6.3-8.2)
[2023-11-17 15:15] LABS: Potassium 5.2 mmol/L (3.5-5.1)
[2023-11-17 15:19] LABS: INR 0.9 (<1.2)
--- NOTE | 2023-11-17 15:31 | XR ---
EXAMINATION TYPE: XR chest 2V DATE OF EXAM: 11/17/2023 3:17 PM CLINICAL INDICATION:Female, 28 years old with history of syncope; [facility] COMPARISON: None TECHNIQUE: XR chest 2V. Frontal and lateral views of the chest.. FINDINGS: Lines/Tubes/Devices: EKG leads and other extraneous densities over the chest. No indwelling lines are seen. Heart/mediastinum: Heart size is normal. Mediastinum appears normal. Pulmonary vascularity: Not increased, Lungs/Pleura: There is no evidence of pleural effusion, focal consolidation, or pneumothorax. Musculoskeletal: No acute osseous abnormality demonstrated in the limits of the exam. Other findings: None. IMPRESSION: No acute cardiopulmonary abnormality.
--- NOTE | 2023-11-17 16:24 | ED ---
General Adult HPI - General Chief complaint: Syncope Stated complaint: Possible seizure Time Seen by Provider: 11/17/23 14:49 Source: patient, family, RN notes reviewed Limitations: no limitations - History of Present Illness Initial comments: 28-year-old female presents emergency department via EMS chief complaint of syncopal episode. Patient states she [facility] states that she started having some change in her vision states she could not focus follow-up lightheaded and then states that she woke up and EMS. She does complain that she had tongue injury, struck her head she complains of a headache. She denies any significant past medical history other than anxiety in which she is on clonidine. Patient denies fever chills chest pain palpitations. - Related Data Home Medications Medication Instructions Recorded Confirmed FLUoxetine HCL [PROzac] 20 mg PO DAILY 06/02/21 06/02/21 Naltrexone HCl [Revia] 50 mg PO DAILY 06/02/21 06/02/21 Previous Rx's Medication Instructions Recorded Ciprofloxacin HCl [Cipro] 500 mg PO BID 5 Days #10 tab 03/10/22 Famotidine [Pepcid] 20 mg PO BID #28 tablet 10/12/22 Ondansetron Odt [Zofran Odt] 4 mg PO Q8HR PRN #30 tab 10/13/22 Ondansetron Odt [Zofran Odt] 4 mg PO Q8HR PRN #15 tab 08/27/23 Allergies Allergy/AdvReac Type Severity Reaction Status Date / Time codeine Allergy Anaphylaxis Verified 11/17/23 14:35 Review of Systems ROS Statement: Those systems with pertinent positive or pertinent negative responses have been documented in the HPI. ROS Other: All systems not noted in ROS Statement are negative. Past Medical History Past Medical History: Asthma Additional Past Medical History / Comment(s): PCOS History of Any Multi-Drug Resistant Organisms: None Reported Past Surgical History: No Surgical Hx Reported Past Anesthesia/Blood Transfusion Reactions: No Reported Reaction Past Psychological History: Depression Smoking Status: Former smoker, Vaper Past Alcohol Use History: Occasional Past Drug Use History: None Reported - Past Family History Mother Family Medical History: Cancer General Exam Limitations: no limitations General appearance: alert, in no apparent distress Head exam: Present: atraumatic, normocephalic, normal inspection Eye exam: Present: normal appearance, PERRL, EOMI. Absent: scleral icterus, conjunctival injection, periorbital swelling ENT exam: Present: normal exam, normal oropharynx, mucous membranes moist Neck exam: Present: normal inspection, full ROM. Absent: tenderness, meningismus, lymphadenopathy Respiratory exam: Present: normal lung sounds bilaterally. Absent: respiratory distress, wheezes, rales, rhonchi, stridor Cardiovascular Exam: Present: regular rate, normal rhythm, normal heart sounds. Absent: systolic murmur, diastolic murmur, rubs, gallop, clicks Neurological exam: Present: alert, oriented X3, CN II-XII intact, reflexes normal. Absent: motor sensory deficit Course Vital Signs 11/17/23 14:31 Temperature 97.0 F L Pulse Rate 85 Respiratory 18 Rate Blood Pressure 119/84 O2 Sat by Pulse 95 Oximetry EKG Findings - EKG Comments: EKG Findings:: EKG performed at 14: 42 sinus rhythm rate of 99 [place] 140 QRS 84 QT/QTc 340/396 - EKG Results: EKG: interpreted by JOHNY Medical Decision Making - Medical Decision Making Was pt. sent in by a medical professional or institution (, PA, TITLE COORDINATOR, urgent care, hospital, or group home...) When possible be specific @ -No Did you speak to anyone other than the patient for history (EMS, parent, family, police, friend...)? What history was obtained from this source @ -No Did you review nursing and triage notes (agree or disagree)? Why? @ -I reviewed and agree with nursing and triage notes Were old charts reviewed (outside hosp., previous admission, EMS record, old EKG, old radiological studies, urgent care reports/EKG's, group home records)? Report findings @ -No old charts were reviewed Differential Diagnosis (chest pain, altered mental status, abdominal pain women, abdominal pain men, vaginal bleeding, weakness, fever, dyspnea, syncope, headache, dizziness, GI bleed, back pain, seizure, CVA, palpatations, mental health, musculoskeletal)? @ -[Differential Syncope: Valvular disease, hypertrophic cardiomyopathy, pulmonary embolism, tamponade, tachycardia, bradycardia, [place], hypovolemia, hemorrhage, dissection, anemia, intracranial hemorrhage, seizure, hypoglycemia, carbon monoxide poisoning, this is not meant to be an all-inclusive list. EKG interpreted by me (3pts min.). @ -As above X-rays interpreted by me (1pt min.). @ -None done CT interpreted by me (1pt min.). @ -CT brain shows no acute intracranial hemorrhage or mass effect. U/S interpreted by me (1pt. min.). @ -None done What testing was considered but not performed or refused? (CT, X-rays, U/S, labs)? Why? @ -None What meds were considered but not given or refused? Why? @ -None Did you discuss the management of the patient with other professionals (professionals i.e. , PA, TITLE COORDINATOR, lab, RT, psych nurse, social science instructor, technical support internship, teacher, chief media officer, casey saw operator)? Give summary @ -No Was smoking cessation discussed for >3mins.? @ -No Was critical care preformed (if so, how long)? @ -No Were there social determinants of health that impacted care today? How? (Homelessness, low income, unemployed, alcoholism, drug addiction, transportation, low edu. Level, literacy, decrease access to med. care, longterm, rehab)? @ -No Was there de-escalation of care discussed even if they declined (Discuss DNR or withdrawal of care, Hospice)? DNR status @ -No What co-morbidities impacted this encounter? (DM, HTN, Smoking, COPD, CAD, Cancer, CVA, ARF, Chemo, Hep., AIDS, mental health diagnosis, sleep apnea, morbid obesity)? @ -None Was patient admitted / discharged? Hospital course, mention meds given and route, prescriptions, significant lab abnormalities, going to OR and other pertinent info. @ -Did charge patient presented after syncopal episode. There was no clear seizure-like activity. Patient recommend that she needs to follow-up with her PCP she will be discharged in stable condition return parameters daisy. Undiagnosed new problem with uncertain prognosis? @ -No Drug Therapy requiring intensive monitoring for toxicity (Heparin, Nitro, Insulin, Cardizem)? @ -No Were any procedures done? @ -No Diagnosis/symptom? @ -Syncope Acute, or Chronic, or Acute on Chronic? @ -Acute Uncomplicated (without systemic symptoms) or Complicated (systemic symptoms)? @ -Uncomplicated Side effects of treatment? @ -No Exacerbation, Progression, or Severe Exacerbation? @ -No Poses a threat to life or bodily function? How? (Chest pain, [place], [place], pneumonia, PE, COPD, DKA, ARF, appy, cholecystitis, CVA, Diverticulitis, Homicidal, Suicidal, threat to staff... and all critical care pts) @ -No - Lab Data Result diagrams: 11/17/23 14:42 11/17/23 14:42 Lab Results 11/17/23 11/17/23 11/17/23 Range/Units 14:42 14:42 14:42 WBC 5.0 (3.8-10.6) k/uL RBC 4.33 (3.80-5.40) m/uL Hgb 13.8 (11.4-16.0) gm/dL Hct 41.1 (34.0-46.0) % MCV 95.0 (80.0-100.0) fL MCH 31.9 (25.0-35.0) pg MCHC 33.6 (31.0-37.0) g/dL RDW 14.3 (11.5-15.5) % Plt Count 345 (150-450) k/uL MPV 7.1 Neutrophils % 54 % Lymphocytes % 37 % Monocytes % 4 % Eosinophils % 3 % Basophils % 0 % Neutrophils # 2.7 (1.3-7.7) k/uL Lymphocytes # 1.9 (1.0-4.8) k/uL Monocytes # 0.2 (0-1.0) k/uL Eosinophils # 0.1 (0-0.7) k/uL Basophils # 0.0 (0-0.2) k/uL PT 10.0 (10.0-12.5) sec INR 0.9 (<1.2) APTT 24.0 (22.0-30.0) sec Sodium 137 (137-145) mmol/L Potassium 5.2 H (3.5-5.1) mmol/L Chloride 104 (98-107) mmol/L Carbon Dioxide 22 (22-30) mmol/L Anion Gap 11 mmol/L BUN 12 (7-17) mg/dL Creatinine 0.49 L (0.52-1.04) mg/dL Est GFR (CKD-EPI)AfAm >90 (>60 ml/min/1.73 sqM) Est GFR (CKD-EPI)NonAf >90 (>60 ml/min/1.73 sqM) Glucose 90 (74-99) mg/dL Calcium 9.6 (8.4-10.2) mg/dL Total Bilirubin 0.5 (0.2-1.3) mg/dL AST 49 H (14-36) U/L ALT 56 H (4-34) U/L Alkaline Phosphatase 69 (38-126) U/L Troponin I (0.000-0.034) ng/mL Total Protein 7.7 (6.3-8.2) g/dL Albumin 4.6 (3.5-5.0) g/dL 11/17/23 Range/Units 14:42 WBC (3.8-10.6) k/uL RBC (3.80-5.40) m/uL Hgb (11.4-16.0) gm/dL Hct (34.0-46.0) % MCV (80.0-100.0) fL MCH (25.0-35.0) pg MCHC (31.0-37.0) g/dL RDW (11.5-15.5) % Plt Count (150-450) k/uL MPV Neutrophils % % Lymphocytes % % Monocytes % % Eosinophils % % Basophils % % Neutrophils # (1.3-7.7) k/uL Lymphocytes # (1.0-4.8) k/uL Monocytes # (0-1.0) k/uL Eosinophils # (0-0.7) k/uL Basophils # (0-0.2) k/uL PT (10.0-12.5) sec INR (<1.2) APTT (22.0-30.0) sec Sodium (137-145) mmol/L Potassium (3.5-5.1) mmol/L Chloride (98-107) mmol/L Carbon Dioxide (22-30) mmol/L Anion Gap mmol/L BUN (7-17) mg/dL Creatinine (0.52-1.04) mg/dL Est GFR (CKD-EPI)AfAm (>60 ml/min/1.73 sqM) Est GFR (CKD-EPI)NonAf (>60 ml/min/1.73 sqM) Glucose (74-99) mg/dL Calcium (8.4-10.2) mg/dL Total Bilirubin (0.2-1.3) mg/dL AST (14-36) U/L ALT (4-34) U/L Alkaline Phosphatase (38-126) U/L Troponin I <0.012 (0.000-0.034) ng/mL Total Protein (6.3-8.2) g/dL Albumin (3.5-5.0) g/dL Disposition Clinical Impression: Syncope Disposition: HOME SELF-CARE Condition: Stable Instructions (If sedation given, give patient instructions): Syncope (ED) Additional Instructions: Please return to the Emergency Department if symptoms worsen or any other concerns. Is patient prescribed a controlled substance at d/c from ED?: No Referrals: Markus Laboy [Primary Care Provider] - 1-2 days Time of Disposition: 16:50
[2023-11-17] MEDS: SODIUM CHLORIDE 0.9% 1,000 ML IV ONE (16:28)
--- NOTE | 2023-11-17 17:05 | CT ---
EXAMINATION TYPE: CT brain wo con CT DLP: 1099.3 mGycm, Automated exposure control for dose reduction was used. DATE OF EXAM: 11/17/2023 4:47 PM COMPARISON: None. CLINICAL INDICATION:Female, 28 years old with history of trauma, seizure, syncope TECHNIQUE: Brain: Axial CT images of the brain were obtained with coronal and sagittal reformats created and rev iewed. Contrast used: None. Oral contrast used: None. FINDINGS: Extra-axial spaces: No abnormal extra-axial fluid collections. Ventricular system: Within normal limits. Cerebral parenchyma: No increased attenuation to suggest acute intraparenchymal hemorrhage. The gra y-white matter interface appears maintained. No significant atrophy. White matter unremarkable by C T. Cerebellum: No acute abnormality. Mass effect: No evidence of mass effect or midline shift. Basilar cisterns are patent. No crowding of the foramen magnum. Intracranial vasculature: Unremarkable Soft tissues: No acute or concerning abnormality. Visualized orbits: Orbital contents appear grossly intact. Calvarium/osseous structures: No evidence of calvarial fracture. Paranasal sinuses and mastoid air cells: Clear. There is mild nasal septal deviation towards the rig ht. The right maxillary sinus appears slightly hypoplastic as compared to the left. There is an impac ernesto tooth, likely posterior molar, with its crown extending into the base of the left maxillary sinus . This can predispose to recurrent sinus infections. MRI is more sensitive for detecting acute processes such as infarct, and may be considered if clinica lly warranted. IMPRESSION: No acute intracranial CT abnormality.
[2023-11-17 17:25] VITALS: BP 106/73; PULSE 71; TEMP 98.1
== END 2023-11-17 17:30 | disposition home or self-care (01) ==
LOC: EC 14:30
DX: R55 Syncope and collapse (principal); F17.290 Nicotine dependence, other tobacco product, uncomplicated; Z88.5 Allergy status to narcotic agent
CPT/HCPCS: 36415; 70450; 71046; 80053; 84484; 85025; 85610; 85730; 93005; 96360; 99284

== ENCOUNTER 2024-02-12 18:25 | Emergency (ER) | payer BC, OTHER ==
[2024-02-12] MEDS: ACETAMINOPHEN TAB 500 MG TAB PO STA (19:15)
[2024-02-12] MEDS: IBUPROFEN 600 MG TAB PO STA (19:16)
[2024-02-12] MEDS: HYDROmorphone 0.5 MG/0.5 ML SYRINGE IVP STA (19:16)
[2024-02-12] MEDS: ONDANSETRON 4 MG/2 ML VIAL IVP STA (19:17)
[2024-02-12] MEDS: SODIUM CHLORIDE 0.9% 1,000 ML IV STA (19:17)
[2024-02-12 19:22] LABS: Basophils % (A) 0 %; Eosinophils # (A) 0.1 k/uL (0-0.7); Eosinophils % (A) 2 %; HCT 40.8 % (34.0-46.0); HGB 13.2 gm/dL (11.4-16.0); Lymphocytes # (A) 1.5 k/uL (1.0-4.8); Lymphocytes % (A) 19 %; MCHC 32.3 g/dL (31.0-37.0); MCV 96.2 fL (80.0-100.0); Mean Platelet Volume 7.3; Monocytes # (A) 0.3 k/uL (0-1.0); Monocytes % (A) 4 %; Neutrophils % (A) 75 %; Platelet Count 302 k/uL (150-450); RBC 4.24 m/uL (3.80-5.40); RDW 13.1 % (11.5-15.5)
[2024-02-12 19:34] LABS: ALT 42 U/L (4-34); AST 45 U/L (14-36); African American GFR (CKD) >90 (>60 ml/min/1.73 sqM); Albumin 4.4 g/dL (3.5-5.0); Alkaline Phosphatase 98 U/L (38-126); Amylase 43 U/L (30-110); Anion Gap 6 mmol/L; Blood Urea Nitrogen 7 mg/dL (7-17); Calcium 9.3 mg/dL (8.4-10.2); Carbon Dioxide 27 mmol/L (22-30); Chloride 104 mmol/L (98-107); Glucose 96 mg/dL (74-99); Lipase 91 U/L (23-300); Non-African American GFR(CKD) >90 (>60 ml/min/1.73 sqM); Potassium 4.5 mmol/L (3.5-5.1); Sodium 137 mmol/L (137-145); Total Bilirubin 0.9 mg/dL (0.2-1.3); Total Protein 7.4 g/dL (6.3-8.2)
--- NOTE | 2024-02-12 19:36 | ED ---
General Adult HPI - General Source: patient, RN notes reviewed, old records reviewed Mode of arrival: ambulatory Limitations: no limitations <Kishore Jacobs - Last Filed: 02/12/24 20:34> <Heladio Murrieta - Last Filed: 02/13/24 03:14> - General Chief complaint: Abdominal Pain Stated complaint: abd pain Time Seen by Provider: 02/12/24 18:45 - History of Present Illness Initial comments: This is a 28-year-old female who presents to the emergency department complaining of being sick for the last 3 days. Patient states she has had a low-grade fever and has had some congestion but has been vomiting as well. P atient also complains of right upper quadrant abdominal pain. Patient denies any back pain. Patient denies dysuria hematuria urinary frequency. Patient has any sore throat. Patient denies any difficulty breathing cough or chest pain. (Kishore Jacobs) - Related Data Home Medications Medication Instructions Recorded Confirmed FLUoxetine HCL [PROzac] 20 mg PO DAILY 06/02/21 06/02/21 Naltrexone HCl [Revia] 50 mg PO DAILY 06/02/21 06/02/21 Previous Rx's Medication Instructions Recorded Ciprofloxacin HCl [Cipro] 500 mg PO BID 5 Days #10 tab 03/10/22 Famotidine [Pepcid] 20 mg PO BID #28 tablet 10/12/22 Ondansetron Odt [Zofran Odt] 4 mg PO Q8HR PRN #30 tab 10/13/22 Ondansetron Odt [Zofran Odt] 4 mg PO Q8HR PRN #15 tab 08/27/23 Ciprofloxacin HCl [Cipro] 500 mg PO BID 7 Days #14 tab 02/13/24 Allergies Allergy/AdvReac Type Severity Reaction Status Date / Time codeine Allergy Anaphylaxis Verified 02/12/24 18:29 Review of Systems ROS Other: All systems not noted in ROS Statement are negative. <Kishore Jacobs - Last Filed: 02/12/24 20:34> ROS Other: All systems not noted in ROS Statement are negative. <Helaido Murrieta - Last Filed: 02/13/24 03:14> ROS Statement: Those systems with pertinent positive or pertinent negative responses have been documented in the HPI. Past Medical History Past Medical History: Asthma Additional Past Medical History / Comment(s): PCOS History of Any Multi-Drug Resistant Organisms: None Reported Past Surgical History: No Surgical Hx Reported Past Anesthesia/Blood Transfusion Reactions: No Reported Reaction Past Psychological History: Depression Smoking Status: Former smoker, Vaper Past Alcohol Use History: Occasional Past Drug Use History: Marijuana - Past Family History Mother Family Medical History: Cancer <JacobsKishore calderon - Last Filed: 02/12/24 20:34> General Exam Limitations: no limitations <Jacobs,Kishore - Last Filed: 02/12/24 20:34> - General Exam Comments Initial Comments: GENERAL: Patient is well-developed and well-nourished. Patient is nontoxic and well- hydrated and is in moderate distress. ENT: Neck is soft and supple. No significant lymphadenopathy is noted. Oropharynx is clear. Moist mucous membranes. Neck has full range of motion without eliciting any pain. EYES: The sclera were anicteric and conjunctiva were pink and moist. Extraocular movements were intact and pupils were equal round and reactive to light. Eyelids were unremarkable. PULMONARY: Unlabored respirations. Good breath sounds bilaterally. No audible rales rhonchi or wheezing was noted. CARDIOVASCULAR: There is a regular rate and rhythm without any murmurs gallops or rubs. ABDOMEN: Rebound tenderness in the right upper quadrant SKIN: Skin is clear with no lesions or rashes and otherwise unremarkable. NEUROLOGIC: Patient is alert and oriented x3. Cranial nerves II through XII are grossly intact. Motor and sensory are also intact. Normal speech, volume and content. Symmetrical smile. MUSCULOSKELETAL: Normal extremities with adequate strength and full range of motion. No lower extremity swelling or edema. No calf tenderness. LYMPHATICS: No significant lymphadenopathy is noted PSYCHIATRIC: Normal psychiatric evaluation. (Kishore Jacobs) Course Vital Signs 02/12/24 02/12/24 02/12/24 18:26 20:44 23:35 Temperature 100.3 F H 100.4 F H 98.3 F Pulse Rate 117 H 104 H 84 Respiratory 22 16 16 Rate Blood Pressure 123/85 111/72 99/63 O2 Sat by Pulse 98 97 97 Oximetry 02/13/24 02:00 Temperature 98.9 F Pulse Rate 93 Respiratory 16 Rate Blood Pressure 114/77 O2 Sat by Pulse 96 Oximetry Medical Decision Making - Lab Data Result diagrams: 02/12/24 19:11 02/12/24 19:11 <Kishore Jacobs - Last Filed: 02/12/24 20:34> - Lab Data Result diagrams: 02/12/24 19:11 02/12/24 19:11 <Heladio Murrieta - Last Filed: 02/13/24 03:14> - Medical Decision Making Was pt. sent in by a medical professional or institution (, [facility], [employer] FI[employer] SERVICE [employer]INEER, urgent care, hospital, or residential...) When possible be specific @ -[No] Did you speak to anyone other than the patient for history (EMS, parent, family, police, friend...)? What history was obtained from this source @ -[No] Did you review nursing and triage notes (agree or disagree)? Why? @ -[I reviewed and agree with nursing and triage notes] Were old charts reviewed (outside hosp., previous admission, EMS record, old EKG, old radiological studies, urgent care reports/EKG's, residential records)? Report findings @ -[No old charts were reviewed] Differential Diagnosis? @ -Differential Abdominal Pain Women: Appendicitis, Cholecystitis, diverticulosis, ischemic bowel, pancreatitis, hepatitis, UTI, gastroenteritis, AAA, incarcerated hernia, bowel obstruction, constipation, inflammatory bowel, hepatitis, peptic ulcer disease, splenic infarction, perforated viscus, vulvitis, ovarian torsion, PID, kidney stone, placenta abruption, this is not meant to be an all-inclusive list EKG interpreted by me (3pts min.). @ -[As above] X-rays interpreted by me (1pt min.). @ -[None done] CT interpreted by me (1pt min.). @ -[None done] U/S interpreted by me (1pt. min.). @ -Ultrasound showed no signs of acute cholecystitis. What testing was considered but not performed or refused? (CT, X-rays, U/S, labs)? Why? @ -[None] What meds were considered but not given or refused? Why? @ -[None] Did you discuss the management of the patient with other professionals (professionals i.e. , [facility], [employer] FI[employer] SERVICE ENGINEER, lab, RT, psych nurse, social and human services assistant, grit removal operator, teacher, parachute/combatant diver officer, onsite case manager)? Give summary @ -[No] Was smoking cessation discussed for >3mins.? @ -[No] Was critical care preformed (if so, how long)? @ -[No] Were there social determinants of health that impacted care today? How? (Homelessness, low income, unemployed, alcoholism, drug addiction, transportation, low edu. Level, literacy, decrease access to med. care, usp, rehab)? @ -[No] Was there de-escalation of care discussed even if they declined (Discuss DNR or withdrawal of care, Hospice)? DNR status @ -[No] What co-morbidities impacted this encounter? (DM, HTN, Smoking, COPD, CAD, Cancer, CVA, ARF, Chemo, Hep., AIDS, mental health diagnosis, sleep apnea, morbid obesity)? @ -[None] Was patient admitted / discharged? Hospital course, mention meds given and route, prescriptions, significant lab abnormalities, going to OR and other pertinent info. @ -I went back in the room to reevaluate the patient she continued to have some right upper quadrant abdominal pain but she stated that the medications did indeed help. Patient was given 2 g of Rocephin for the urinary tract infection and she given Zofran for the nausea as well as Motrin and Tylenol for the fever and a half a milligram of Dilaudid for the pain. Patient is care will be taken over by Dr. Gill at 9 PM (Kishore Jacobs) Patient signed out to me pending results of imaging. Briefly, patient presents for right-sided abdominal pain. Diagnosed with UTI so far given IV antibiotics. Concern for other intra-abdominal process at this time. CT abdomen pelvis interpreted by myself returned showing signs of right-sided pyelonephritis. Patient also has hepatomegaly which is nonspecific. On reevaluation, I updated the patient. I did offer observation admission however she would like to go home at this time. She will be discharged home on ciprofloxacin. Strict return precautions discussed. She was in agreement this plan. I will provide the patient with a prescription for ciprofloxacin. I instructed the patient to follow up with their PCP in the next 1-3 days.. I explained that the patient should return to the emergency department if they experience any worsening symptoms. Strict return precautions were discussed with the patient. The patient expressed understanding of these instructions. I answered all questions that the patient had. The patient was discharged home in fair condition with their prescriptions and follow up information. Diagnosis/symptom? @ -UTI, pyelonephritis Acute, or Chronic, or Acute on Chronic? @ -Acute Uncomplicated (without systemic symptoms) or Complicated (systemic symptoms)? @ -Complicated Side effects of treatment? @ -None Exacerbation, Progression, or Severe Exacerbation] @ -No Poses a threat to life or bodily function? @ -Unlikely (Heladio Murrieta) - Lab Data Lab Results 02/12/24 02/12/24 02/12/24 Range/Units 19:11 19:11 19:11 WBC 8.0 (3.8-10.6) k/uL RBC 4.24 (3.80-5.40) m/uL Hgb 13.2 (11.4-16.0) gm/dL Hct 40.8 (34.0-46.0) % MCV 96.2 (80.0-100.0) fL MCH 31.0 (25.0-35.0) pg MCHC 32.3 (31.0-37.0) g/dL RDW 13.1 (11.5-15.5) % Plt Count 302 (150-450) k/uL MPV 7.3 Neutrophils % 75 % Lymphocytes % 19 % Monocytes % 4 % Eosinophils % 2 % Basophils % 0 % Neutrophils # 6.0 (1.3-7.7) k/uL Lymphocytes # 1.5 (1.0-4.8) k/uL Monocytes # 0.3 (0-1.0) k/uL Eosinophils # 0.1 (0-0.7) k/uL Basophils # 0.0 (0-0.2) k/uL Sodium 137 (137-145) mmol/L Potassium 4.5 (3.5-5.1) mmol/L Chloride 104 (98-107) mmol/L Carbon Dioxide 27 (22-30) mmol/L Anion Gap 6 mmol/L BUN 7 (7-17) mg/dL Creatinine 0.57 (0.52-1.04) mg/dL Est GFR (CKD-EPI)AfAm >90 (>60 ml/min/1.73 sqM) Est GFR (CKD-EPI)NonAf >90 (>60 ml/min/1.73 sqM) Glucose 96 (74-99) mg/dL Plasma Lactic Acid Rod (0.7-2.0) mmol/L Calcium 9.3 (8.4-10.2) mg/dL Total Bilirubin 0.9 (0.2-1.3) mg/dL AST 45 H (14-36) U/L ALT 42 H (4-34) U/L Alkaline Phosphatase 98 (38-126) U/L Total Protein 7.4 (6.3-8.2) g/dL Albumin 4.4 (3.5-5.0) g/dL Amylase 43 (30-110) U/L Lipase 91 (23-300) U/L Urine Color Light Yellow Urine Appearance Cloudy H (Clear) Urine pH 8.5 H (5.0-8.0) Ur Specific [place] 1.014 (1.001-1.035) Urine Protein 1+ H (Negative) Urine Glucose (UA) Negative (Negative) Urine Ketones Negative (Negative) Urine Blood Trace H (Negative) Urine Nitrite Negative (Negative) Urine Bilirubin Negative (Negative) Urine Urobilinogen 2.0 (<2.0) mg/dL Ur Leukocyte Esterase Large H (Negative) Urine RBC 3 (0-5) /hpf Urine WBC >182 H (0-5) /hpf Urine WBC Clumps Rare H (None) /hpf Ur Squamous Epith Cells 9 H (0-4) /hpf Urine Bacteria Rare H (None) /hpf Urine Mucus Rare H (None) /hpf Hepatitis A IgM Ab (Nonreactive) Hep Bs Antigen (Nonreactive) Hep B Core IgM Ab (Nonreactive) Hep C IgG Ab (Nonreactive) Influenza Type A (PCR) (Not Detectd) Influenza Type B (PCR) (Not Detectd) RSV (PCR) (Not Detectd) SARS-CoV-2 (PCR) (Not Detectd) 02/12/24 02/12/24 02/12/24 Range/Units 19:11 19:11 19:11 WBC (3.8-10.6) k/uL RBC (3.80-5.40) m/uL Hgb (11.4-16.0) gm/dL Hct (34.0-46.0) % MCV (80.0-100.0) fL MCH (25.0-35.0) pg MCHC (31.0-37.0) g/dL RDW (11.5-15.5) % Plt Count (150-450) k/uL MPV Neutrophils % % Lymphocytes % % Monocytes % % Eosinophils % % Basophils % % Neutrophils # (1.3-7.7) k/uL Lymphocytes # (1.0-4.8) k/uL Monocytes # (0-1.0) k/uL Eosinophils # (0-0.7) k/uL Basophils # (0-0.2) k/uL Sodium (137-145) mmol/L Potassium (3.5-5.1) mmol/L Chloride (98-107) mmol/L Carbon Dioxide (22-30) mmol/L Anion Gap mmol/L BUN (7-17) mg/dL Creatinine (0.52-1.04) mg/dL Est GFR (CKD-EPI)AfAm (>60 ml/min/1.73 sqM) Est GFR (CKD-EPI)NonAf (>60 ml/min/1.73 sqM) Glucose (74-99) mg/dL Plasma Lactic Acid Rod 1.2 (0.7-2.0) mmol/L Calcium (8.4-10.2) mg/dL Total Bilirubin (0.2-1.3) mg/dL AST (14-36) U/L ALT (4-34) U/L Alkaline Phosphatase (38-126) U/L Total Protein (6.3-8.2) g/dL Albumin (3.5-5.0) g/dL Amylase (30-110) U/L Lipase (23-300) U/L Urine Color Urine Appearance (Clear) Urine pH (5.0-8.0) Ur Specific [place] (1.001-1.035) Urine Protein (Negative) Urine Glucose (UA) (Negative) Urine Ketones (Negative) Urine Blood (Negative) Urine Nitrite (Negative) Urine Bilirubin (Negative) Urine Urobilinogen (<2.0) mg/dL Ur Leukocyte Esterase (Negative) Urine RBC (0-5) /hpf Urine WBC (0-5) /hpf Urine WBC Clumps (None) /hpf Ur Squamous Epith Cells (0-4) /hpf Urine Bacteria (None) /hpf Urine Mucus (None) /hpf Hepatitis A IgM Ab Nonreactive (Nonreactive) Hep Bs Antigen Nonreactive (Nonreactive) Hep B Core IgM Ab Nonreactive (Nonreactive) Hep C IgG Ab Nonreactive (Nonreactive) Influenza Type A (PCR) Not Detected (Not Detectd) Influenza Type B (PCR) Not Detected (Not Detectd) RSV (PCR) Not Detected (Not Detectd) SARS-CoV-2 (PCR) Not Detected (Not Detectd) Disposition <Kishore Jacobs - Last Filed: 02/12/24 20:34> Is patient prescribed a controlled substance at d/c from ED?: No Time of Disposition: 02:51 <Heladio Murrieta - Last Filed: 02/13/24 03:14> Clinical Impression: Urinary tract infection, Pyelonephritis Disposition: HOME SELF-CARE Condition: Fair Instructions (If sedation given, give patient instructions): Kidney Infection (ED) Prescriptions: Ciprofloxacin HCl [Cipro] 500 mg PO BID 7 Days #14 tab Referrals: Markus Laboy [Primary Care Provider] - 1-2 days Forms: Work/School Release, Work/Release Restrictions Form
[2024-02-12 19:48] LABS: Appearance,Urine Cloudy (Clear); Bacteria,Urine Rare /hpf; Bilirubin,Urine Negative (Negative); Blood,Urine Trace (Negative); Color,Urine Light Yellow; Glucose,Urine (UA) Negative (Negative); Ketones,Urine Negative (Negative); Leukocyte Esterase,Urine Large (Negative); Mucus,Urine Rare /hpf; Nitrite,Urine Negative (Negative); PH, Urine 8.5 (5.0-8.0); Protein,Urine 1+ (Negative); RBC,Urine 3 /hpf (0-5); Specific Gravity,Urine 1.014 (1.001-1.035); Squamous Epithelial Cell,Urine 9 /hpf (0-4); WBC,Urine >182 /hpf (0-5)
--- NOTE | 2024-02-12 20:05 | US ---
EXAMINATION TYPE: US gallbladder DATE OF EXAM: 02/12/2024 COMPARISON: None CLINICAL INDICATION: Female, 28 years old with history of Right upper quadrant abdominal pain; Patien t states body aches and RUQ tenderness TECHNIQUE: Multiple sonographic images of the right upper quadrant are obtained. FINDINGS: EXAM MEASUREMENTS: Liver Length: 15.6 cm Gallbladder Wall: 0.2 cm CBD: 0.3 cm Right Kidney: 11.4 x 5.1 x 5.2 cm SEARCH CONSULTANT NOTES:Slightly limited due to overlying bowel and patient body habitus Pancreas: Obscured by bowel gas Liver: Difficult to penetrate, visualized portions appear slightly echogenic rand heterogeneous Gallbladder: Wall appears WNL. Trace amount of low level echoes seen within the gallbladder neck, po ssible sludge. Evidence for sonographic Michaels's sign: No CBD: wnl Right Kidney: No hydronephrosis or masses seen as best visualized today IMPRESSION: 1. Findings suggest severe hepatic steatosis. Correlate with LFTs, lipid profile, and patient risk fa ctors. 2. Some sludge in the gallbladder. No gallstones or findings of acute cholecystitis. 3. No biliary ductal dilatation.
[2024-02-12] MEDS: cefTRIAXone IN SWFI 1,000 MG/10 ML SYRINGE IVP STA (20:38)
[2024-02-12 20:50] VITALS: RESP 16
[2024-02-12] MEDS: PIPERACILLIN-TAZOBACTAM 3.375 GM in SODIUM CHLORIDE 0.9% 100 ML IVPB STA (20:51)
--- NOTE | 2024-02-12 21:25 | CT ---
EXAMINATION TYPE: CT abdomen pelvis w con DATE OF EXAM: 02/12/2024 COMPARISON: 06/02/2021 HISTORY: 28-year-old female RUQ abdominal pain. TECHNIQUE: Contiguous axial scanning of the abdomen and pelvis following administration of 100 ml Iso josé luis 300 IV contrast. Delayed images through the kidneys and coronal/sagittal reconstructions perform ed. CT DLP: 1076.7 mGycm Automated exposure control for dose reduction was used. FINDINGS: The heart is normal size without pericardial effusion. Mild dependent atelectasis in the lower lobes without pleural effusion. A prominent lymph node lower left posterior mediastinum measuring 1.3 cm remains unchanged from 2020 compatible with a benign etiology. The liver is mildly enlarged at 18.0 cm with markedly diminished attenuation. No biliary ductal dilat ation. Portal venous system is patent. Gallbladder, adrenal glands, left kidney, spleen, and pancreas within normal limits. There is patchy hypoenhancement and mild perinephric edema of the right kidney. Mild urothelial enhan cement also noted on the right. No dilated small bowel, free fluid, or free air. No mesenteric or retroperitoneal lymphadenopathy. No significant stool burden. No pericolic inflammatory change. Bladder partially distended. Mild circumferential wall thickening noted. Uterus anteverted. Both ovar ies are visualized. No abnormal fluid collection in the pelvis or pelvic lymphadenopathy. Bones: No osseous destructive process. IMPRESSION: 1. PATCHY HYPOENHANCEMENT OF THE RIGHT KIDNEY. FINDINGS HIGHLY SUGGESTIVE OF PYELONEPHRITIS. CLINICAL LY CORRELATE. ALSO, MILD CIRCUMFERENTIAL BLADDER WALL THICKENING CAN BE SEEN WITH CYSTITIS. 2. HEPATOMEGALY AT 18.0 CM WITH SEVERE HEPATIC STEATOSIS. APPROPRIATE CLINICAL MANAGEMENT IS ADVISED.
[2024-02-13] MEDS: HYDROmorphone 0.5 MG/0.5 ML SYRINGE IVP STA (02:57)
[2024-02-13] MEDS: ONDANSETRON 4 MG ODT STARTER PACK 2 TAB BTL PO STA (02:58)
[2024-02-13] MEDS: CIPROFLOXACIN HCL 500 MG TAB PO STA (02:58)
[2024-02-13 03:08] VITALS: TEMP 98.9
[2024-02-13 03:12] LABS: Hepatitis A Antibody IgM Nonreactive (Nonreactive); Hepatitis B Core IgM Nonreactive (Nonreactive); Hepatitis B Surface Antigen Nonreactive (Nonreactive); Hepatitis C IgG Antibody Nonreactive (Nonreactive)
[2024-02-13 03:24] VITALS: BP 115/79; PULSE 96
[2024-02-14 14:12] LABS: N. gonorrhoeae,PCR Negative (Negative)
[2024-02-14 14:27] LABS: C. trachomatis,PCR Negative (Negative)
== END 2024-02-13 03:21 | disposition home or self-care (01) ==
LOC: EC 18:25
DX: N39.0 Urinary tract infection, site not specified (principal); N12 Tubulo-interstitial nephritis, not specified as acute or chronic; F17.290 Nicotine dependence, other tobacco product, uncomplicated; Z88.5 Allergy status to narcotic agent
CPT/HCPCS: 99284; 96374; 96375 ×2; 96376; 96361 ×2; 36415; 80053; 80074; 82150; 83605; 83690; 85025; 81001; 87040; 87491; 87591; 87086; 87636; 76705; 74177; J2405; J0696; J1170; Q9967

== ENCOUNTER 2024-04-08 08:18 | Emergency (ER) | payer OTHER ==
[2024-04-08] MEDS: SODIUM CHLORIDE 0.9% 2,000 ML IV STA (08:43)
[2024-04-08] MEDS: diphenhydrAMINE 50 MG/ML 1 ML VIAL IVP STA (08:51)
[2024-04-08] MEDS: KETOROLAC 15 MG/ML 1 ML VIAL IVP STA (08:52)
[2024-04-08] MEDS: METOCLOPRAMIDE 5 MG/ML 2 ML VIAL IVP STA (08:52)
[2024-04-08 09:01] LABS: Basophils % (A) 0 %; Eosinophils # (A) 0.2 k/uL (0-0.7); Eosinophils % (A) 4 %; HCT 41.7 % (34.0-46.0); HGB 14.2 gm/dL (11.4-16.0); Lymphocytes # (A) 2.7 k/uL (1.0-4.8); Lymphocytes % (A) 48 %; MCH 30.8 pg (25.0-35.0); Mean Platelet Volume 7.2; Monocytes # (A) 0.2 k/uL (0-1.0); Monocytes % (A) 3 %; Neutrophils # (A) 2.4 k/uL (1.3-7.7); Neutrophils % (A) 43 %; Platelet Count 355 k/uL (150-450); RBC 4.62 m/uL (3.80-5.40); RDW 14.4 % (11.5-15.5); WBC 5.7 k/uL (3.8-10.6)
[2024-04-08 09:03] LABS: MCV 90.4 fL (80.0-100.0)
--- NOTE | 2024-04-08 09:05 | ED ---
Nausea/Vomiting/Diarrhea HPI - General Chief complaint: Nausea/Vomiting/Diarrhea Stated complaint: Vomitting Time Seen by Provider: 04/08/24 08:26 Source: patient, RN notes reviewed Mode of arrival: ambulatory Limitations: no limitations - History of Present Illness Initial comments: 28-year-old female presents emergency department complaint of nausea vomiting x 3 days. Patient states that she is also had associated diarrhea she is unable to keep any food or liquids down. Patient states that she feels like she may have a UTI she states a few months ago she had pyelonephritis in which she was hospitalized for. Patient denies any reports of fever other than feeling warm and cold. Patient denies any flank pain no chest pain no shortness of breath. - Related Data Home Medications Medication Instructions Recorded Confirmed FLUoxetine HCL [PROzac] 20 mg PO DAILY 06/02/21 06/02/21 Naltrexone HCl [Revia] 50 mg PO DAILY 06/02/21 06/02/21 Previous Rx's Medication Instructions Recorded Ciprofloxacin HCl [Cipro] 500 mg PO BID 5 Days #10 tab 03/10/22 Famotidine [Pepcid] 20 mg PO BID #28 tablet 10/12/22 Ondansetron Odt [Zofran Odt] 4 mg PO Q8HR PRN #30 tab 10/13/22 Ondansetron Odt [Zofran Odt] 4 mg PO Q8HR PRN #15 tab 08/27/23 Ciprofloxacin HCl [Cipro] 500 mg PO BID 7 Days #14 tab 02/13/24 Ondansetron Odt [Zofran Odt] 4 mg PO Q8HR PRN #10 tab 04/08/24 Allergies Allergy/AdvReac Type Severity Reaction Status Date / Time codeine Allergy Anaphylaxis Verified 04/08/24 08:23 Review of Systems ROS Statement: Those systems with pertinent positive or pertinent negative responses have been documented in the HPI. ROS Other: All systems not noted in ROS Statement are negative. Past Medical History Past Medical History: Asthma Additional Past Medical History / Comment(s): PCOS History of Any Multi-Drug Resistant Organisms: None Reported Past Surgical History: No Surgical Hx Reported Past Anesthesia/Blood Transfusion Reactions: No Reported Reaction Past Psychological History: Depression Smoking Status: Former smoker, Vaper Past Alcohol Use History: Occasional Past Drug Use History: Marijuana - Past Family History Mother Family Medical History: Cancer General Exam Limitations: no limitations General appearance: alert, in no apparent distress Head exam: Present: atraumatic, normocephalic, normal inspection Neck exam: Present: normal inspection. Absent: tenderness, meningismus, lymphadenopathy Respiratory exam: Present: normal lung sounds bilaterally. Absent: respiratory distress, wheezes, rales, rhonchi, stridor Cardiovascular Exam: Present: normal rhythm, tachycardia, normal heart sounds. Absent: systolic murmur, diastolic murmur, rubs, gallop, clicks GI/Abdominal exam: Present: soft, normal bowel sounds. Absent: distended, tenderness, guarding, rebound, rigid Back exam: Absent: CVA tenderness (R), CVA tenderness (L) Neurological exam: Present: alert Course Vital Signs 04/08/24 08:20 Temperature 97.9 F Pulse Rate 120 H Respiratory 20 Rate Blood Pressure 123/82 O2 Sat by Pulse 97 Oximetry Medical Decision Making - Medical Decision Making Was pt. sent in by a medical professional or institution (, PA, AUTOMATION TEST DEVELOPER, urgent care, hospital, or senior living...) When possible be specific @ -No Did you speak to anyone other than the patient for history (EMS, parent, family, police, friend...)? What history was obtained from this source @ -No Did you review nursing and triage notes (agree or disagree)? Why? @ -I reviewed and agree with nursing and triage notes Were old charts reviewed (outside hosp., previous admission, EMS record, old EKG, old radiological studies, urgent care reports/EKG's, senior living records)? Report findings @ -No old charts were reviewed Differential Diagnosis (chest pain, altered mental status, abdominal pain women, abdominal pain men, vaginal bleeding, weakness, fever, dyspnea, syncope, headache, dizziness, GI bleed, back pain, seizure, CVA, palpatations, mental health, musculoskeletal)? @ -Differential Abdominal Pain Women: Appendicitis, Cholecystitis, diverticulosis, ischemic bowel, pancreatitis, hepatitis, UTI, gastroenteritis, AAA, incarcerated hernia, bowel obstruction, constipation, inflammatory bowel, hepatitis, peptic ulcer disease, splenic infarction, perforated viscus, vulvitis, ovarian torsion, PID, kidney stone, placenta abruption, this is not meant to be an all-inclusive list EKG interpreted by me (3pts min.). @ -None none X-rays interpreted by me (1pt min.). @ -None done CT interpreted by me (1pt min.). @ -None done U/S interpreted by me (1pt. min.). @ -None done What testing was considered but not performed or refused? (CT, X-rays, U/S, labs)? Why? @ -None What meds were considered but not given or refused? Why? @ -None Did you discuss the management of the patient with other professionals (professionals i.e. , PA, AUTOMATION TEST DEVELOPER, lab, RT, psych nurse, social welfare administrator, network systems administrator, teacher, real estate utilization officer, case finisher)? Give summary @ -No Was smoking cessation discussed for >3mins.? @ -No Was critical care preformed (if so, how long)? @ -No Were there social determinants of health that impacted care today? How? (Homelessness, low income, unemployed, alcoholism, drug addiction, transportation, low edu. Level, literacy, decrease access to med. care, correction, rehab)? @ -No Was there de-escalation of care discussed even if they declined (Discuss DNR or withdrawal of care, Hospice)? DNR status @ -No What co-morbidities impacted this encounter? (DM, HTN, Smoking, COPD, CAD, Cancer, CVA, ARF, Chemo, Hep., AIDS, mental health diagnosis, sleep apnea, morbid obesity)? @ -None Was patient admitted / discharged? Hospital course, mention meds given and route, prescriptions, significant lab abnormalities, going to OR and other pertinent info. @ -Charge patient feels great improved after IV fluids and antiemetics. Patient has mild transaminitis which is chronic but slightly elevated from baseline she will have this rechecked with her PCP if she has no right upper quadrant tenderness. Patient did have noted trichomonas on urinalysis which will be given Flagyl. Patient is discharged in stable condition return parameters discussed. Undiagnosed new problem with uncertain prognosis? @ -No Drug Therapy requiring intensive monitoring for toxicity (Heparin, Nitro, Insulin, Cardizem)? @ -No Were any procedures done? @ -No Diagnosis/symptom? @ -Nausea vomiting, abdominal pain, trichomonas Acute, or Chronic, or Acute on Chronic? @ -Acute Uncomplicated (without systemic symptoms) or Complicated (systemic symptoms)? @ -Uncomplicated Side effects of treatment? @ -No Exacerbation, Progression, or Severe Exacerbation? @ -No Poses a threat to life or bodily function? How? (Chest pain, [place], [place], pneumonia, PE, COPD, DKA, ARF, appy, cholecystitis, CVA, Diverticulitis, Homicidal, Suicidal, threat to staff... and all critical care pts) @ -No - Lab Data Result diagrams: 04/08/24 08:39 04/08/24 08:39 Lab Results 04/08/24 04/08/24 04/08/24 Range/Units 08:39 08:39 08:39 WBC 5.7 (3.8-10.6) k/uL RBC 4.62 (3.80-5.40) m/uL Hgb 14.2 (11.4-16.0) gm/dL Hct 41.7 (34.0-46.0) % MCV 90.4 D (80.0-100.0) fL MCH 30.8 (25.0-35.0) pg MCHC 34.0 (31.0-37.0) g/dL RDW 14.4 (11.5-15.5) % Plt Count 355 (150-450) k/uL MPV 7.2 Neutrophils % 43 % Lymphocytes % 48 % Monocytes % 3 % Eosinophils % 4 % Basophils % 0 % Neutrophils # 2.4 (1.3-7.7) k/uL Lymphocytes # 2.7 (1.0-4.8) k/uL Monocytes # 0.2 (0-1.0) k/uL Eosinophils # 0.2 (0-0.7) k/uL Basophils # 0.0 (0-0.2) k/uL Sodium 139 (137-145) mmol/L Potassium 3.1 L (3.5-5.1) mmol/L Chloride 103 (98-107) mmol/L Carbon Dioxide 27 (22-30) mmol/L Anion Gap 9 mmol/L BUN 8 (7-17) mg/dL Creatinine 0.61 (0.52-1.04) mg/dL Est GFR (CKD-EPI)AfAm >90 (>60 ml/min/1.73 sqM) Est GFR (CKD-EPI)NonAf >90 (>60 ml/min/1.73 sqM) Glucose 106 H (74-99) mg/dL Calcium 9.5 (8.4-10.2) mg/dL Total Bilirubin 1.1 (0.2-1.3) mg/dL AST 170 H (14-36) U/L ALT 246 H (4-34) U/L Alkaline Phosphatase 103 (38-126) U/L Total Protein 7.4 (6.3-8.2) g/dL Albumin 4.6 (3.5-5.0) g/dL Lipase 92 (23-300) U/L Urine Color Dark Yellow Urine Appearance Turbid H (Clear) Urine pH 6.0 (5.0-8.0) Ur Specific [place] 1.032 (1.001-1.035) Urine Protein 2+ H (Negative) Urine Glucose (UA) Negative (Negative) Urine Ketones 2+ H (Negative) Urine Blood Negative (Negative) Urine Nitrite Negative (Negative) Urine Bilirubin 1+ H (Negative) Urine Urobilinogen 3.0 (<2.0) mg/dL Ur Leukocyte Esterase Small H (Negative) Urine RBC 7 H (0-5) /hpf Urine WBC 16 H (0-5) /hpf Ur Squamous Epith Cells 70 H (0-4) /hpf Amorphous Sediment Rare H (None) /hpf Urine Bacteria Occasional H (None) /hpf Urine Mucus Many H (None) /hpf Urine Trichomonas Rare H (None) /hpf Urine HCG, Qual (Not Detectd) 04/08/24 Range/Units 08:39 WBC (3.8-10.6) k/uL RBC (3.80-5.40) m/uL Hgb (11.4-16.0) gm/dL Hct (34.0-46.0) % MCV (80.0-100.0) fL MCH (25.0-35.0) pg MCHC (31.0-37.0) g/dL RDW (11.5-15.5) % Plt Count (150-450) k/uL MPV Neutrophils % % Lymphocytes % % Monocytes % % Eosinophils % % Basophils % % Neutrophils # (1.3-7.7) k/uL Lymphocytes # (1.0-4.8) k/uL Monocytes # (0-1.0) k/uL Eosinophils # (0-0.7) k/uL Basophils # (0-0.2) k/uL Sodium (137-145) mmol/L Potassium (3.5-5.1) mmol/L Chloride (98-107) mmol/L Carbon Dioxide (22-30) mmol/L Anion Gap mmol/L BUN (7-17) mg/dL Creatinine (0.52-1.04) mg/dL Est GFR (CKD-EPI)AfAm (>60 ml/min/1.73 sqM) Est GFR (CKD-EPI)NonAf (>60 ml/min/1.73 sqM) Glucose (74-99) mg/dL Calcium (8.4-10.2) mg/dL Total Bilirubin (0.2-1.3) mg/dL AST (14-36) U/L ALT (4-34) U/L Alkaline Phosphatase (38-126) U/L Total Protein (6.3-8.2) g/dL Albumin (3.5-5.0) g/dL Lipase (23-300) U/L Urine Color Urine Appearance (Clear) Urine pH (5.0-8.0) Ur Specific [place] (1.001-1.035) Urine Protein (Negative) Urine Glucose (UA) (Negative) Urine Ketones (Negative) Urine Blood (Negative) Urine Nitrite (Negative) Urine Bilirubin (Negative) Urine Urobilinogen (<2.0) mg/dL Ur Leukocyte Esterase (Negative) Urine RBC (0-5) /hpf Urine WBC (0-5) /hpf Ur Squamous Epith Cells (0-4) /hpf Amorphous Sediment (None) /hpf Urine Bacteria (None) /hpf Urine Mucus (None) /hpf Urine Trichomonas (None) /hpf Urine HCG, Qual Not Detected (Not Detectd) Disposition Clinical Impression: Trichomonas infection, Nausea & vomiting, Abdominal pain Disposition: HOME SELF-CARE Condition: Stable Instructions (If sedation given, give patient instructions): Abdominal Pain (ED) Additional Instructions: Please return to the Emergency Department if symptoms worsen or any other concerns. Prescriptions: Ondansetron Odt [Zofran Odt] 4 mg PO Q8HR PRN #10 tab PRN Reason: Nausea Is patient prescribed a controlled substance at d/c from ED?: No Referrals: Markus Laboy [Primary Care Provider] - 1-2 days Time of Disposition: 11:12
[2024-04-08 09:08] LABS: ALT 246 U/L (4-34); AST 170 U/L (14-36); African American GFR (CKD) >90 (>60 ml/min/1.73 sqM); Albumin 4.6 g/dL (3.5-5.0); Alkaline Phosphatase 103 U/L (38-126); Anion Gap 9 mmol/L; Blood Urea Nitrogen 8 mg/dL (7-17); Calcium 9.5 mg/dL (8.4-10.2); Carbon Dioxide 27 mmol/L (22-30); Chloride 103 mmol/L (98-107); Glucose 106 mg/dL (74-99); Lipase 92 U/L (23-300); Non-African American GFR(CKD) >90 (>60 ml/min/1.73 sqM); Potassium 3.1 mmol/L (3.5-5.1); Sodium 139 mmol/L (137-145); Total Bilirubin 1.1 mg/dL (0.2-1.3); Total Protein 7.4 g/dL (6.3-8.2)
[2024-04-08 10:45] LABS: Amorphous Sediment,Urine Rare /hpf; Appearance,Urine Turbid (Clear); Bacteria,Urine Occasional /hpf; Bilirubin,Urine 1+ (Negative); Blood,Urine Negative (Negative); Color,Urine Dark Yellow; Glucose,Urine (UA) Negative (Negative); Ketones,Urine 2+ (Negative); Leukocyte Esterase,Urine Small (Negative); Mucus,Urine Many /hpf; Nitrite,Urine Negative (Negative); Protein,Urine 2+ (Negative); RBC,Urine 7 /hpf (0-5); Specific Gravity,Urine 1.032 (1.001-1.035); Squamous Epithelial Cell,Urine 70 /hpf (0-4); Trichomonas,Urine Rare /hpf; WBC,Urine 16 /hpf (0-5)
[2024-04-08] MEDS: metroNIDAZOLE 500 MG TAB PO STA (11:27)
[2024-04-08 11:33] VITALS: BP 121/79; PULSE 99; RESP 18; TEMP 98
== END 2024-04-08 11:42 | disposition home or self-care (01) ==
LOC: EC 08:18
CPT/HCPCS: 36415; 80053; 81001; 81025; 83690; 85025; 87086; 96361; 96374; 96375; 99284

== ENCOUNTER → 2024-12-30 | Outpatient (CLI) | payer OTHER ==
--- NOTE | 2024-12-30 14:00 | XR ---
EXAMINATION TYPE: XR lumbosacral spine min 4V DATE OF EXAM: 12/30/2024 CLINICAL INDICATION: Female, 29 years old with history of M54.50 ACUTE FERNANDO LOW BACK PAIN, pain TECHNIQUE: Frontal, lateral, and oblique images of the lumbar spine are obtained. COMPARISON: None FINDINGS: There are 5 lumbar type vertebral bodies identified assuming hypoplastic bilateral T12 rib s. The lumbar spine shows satisfactory alignment without evidence of acute fracture or dislocation. Vertebral body heights and disk space heights are within normal limits. The oblique images appear w ithin normal limits. The overlying soft tissue appears unremarkable. IMPRESSION: As above. [facility], , 12/30/2024 1:57 PM
[2024-12-30 18:13] LABS: Basophils # (A) 0.02 X 10*3/uL (0.00-0.10); Basophils % (A) 0.4 %; Eosinophils # (A) 0.21 X 10*3/uL (0.04-0.35); Eosinophils % (A) 4.3 %; HCT 43.7 % (37.2-46.3); HGB 14.2 g/dL (12.0-15.0); Lymphocytes # (A) 2.24 X 10*3/uL (0.90-5.00); Lymphocytes % (A) 45.8 %; MCH 29.2 pg (27.0-32.0); MCHC 32.5 g/dL (32.0-37.0); MCV 89.7 FL (80.0-97.0); Mean Platelet Volume 9.2 FL (9.5-12.2); Monocytes % (A) 4.1 %; NRBC Per 100 WBC 0 X 10*3/uL (0.00-0.01); Neutrophils # (A) 2.19 X 10*3/uL (1.80-7.70); Neutrophils % (A) 44.8 %; Platelet Count 313 X 10*3/uL (140-440); RBC 4.87 X 10*6/uL (4.10-5.20); RDW 12.6 % (11.5-14.5); WBC 4.89 X 10*3/uL (4.50-10.00)
[2024-12-30 18:58] LABS: ALT 89 U/L (8-44); AST 44 U/L (13-35); Albumin 4.1 g/dL (3.8-4.9); Albumin/Globulin Ratio 1.71 Ratio (1.60-3.17); Alkaline Phosphatase 82 U/L (41-126); BUN/Creat Ratio 10.57 Ratio (12.00-20.00); Blood Urea Nitrogen 7.4 mg/dL (9.0-27.0); Calcium 9.3 mg/dL (8.7-10.3); Chloride 107 mmol/L (96-109); Globulin 2.4 g/dL (1.6-3.3); Glucose 118 mg/dL (70-110); Potassium 4.2 mmol/L (3.5-5.5); Sodium 144 mmol/L (135-145); Total Bilirubin 0.2 mg/dL (0.3-1.2); Total Protein 6.5 g/dL (6.2-8.2)
== END | disposition home or self-care (01) ==
LOC: LABWHC1 13:21
PROVIDERS: ATTEND Family Medicine
DX: Z00.00 Encounter for general adult medical examination without abnormal findings (principal); F41.9 Anxiety disorder, unspecified; M54.50 Low back pain, unspecified; R79.89 Other specified abnormal findings of blood chemistry
CPT/HCPCS: 36415; 72110; 80053; 82306; 82607; 82746; 84443; 85025

== ENCOUNTER 2025-03-01 14:27 | Emergency (ER) | payer OTHER ==
[2025-03-01 14:31] VITALS: TEMP 98.1
--- NOTE | 2025-03-01 14:52 | ED ---
Female Urogenital HPI - General Chief complaint: Urogenital Stated complaint: Abd pain,Urogenital Time Seen by Provider: 03/01/25 14:40 Source: patient, RN notes reviewed Mode of arrival: ambulatory Limitations: no limitations - History of Present Illness Initial comments: This is a 29-year-old female with history of asthma, ectopic and PCOS presenting for vaginal bleeding and blood in urine x 1 month. Patient states she has underwent evaluations by urology and obstetrics with no abnormalities discovered. Patient endorses associated intermittent lower abdominal cramping (6/10), fatigue, dizziness/lightheadedness (lasting 1-2 minutes before spontaneous resolution). Patient states she normally menstruates about twice per year, stating vaginal bleeding is occurring much more often than is usual for her. Patient denies use of oral contraceptives. Denies fever, chills, chest pain, dyspnea, hematemesis, N/V/D, constipation, hematochezia, melena. MD Complaint: vaginal bleeding Onset/Timin -: month(s) Severity scale (1-10): 6 Quality: cramping Consistency: intermittent Associated Symptoms: vaginal bleeding, abdominal pain, weakness - Related Data Home Medications Medication Instructions Recorded Confirmed Albuterol Inhaler [Ventolin Hfa 2 puff INHALATION RT-Q6H PRN 03/01/25 03/01/25 Inhaler] Beclomethasone Dipropionate [Qvar 2 puff INHALATION RT-BID 03/01/25 03/01/25 80mcg Redihaler] Naproxen 375 mg PO BID PRN 03/01/25 03/01/25 Oxybutynin Chloride [oxyBUTYnin 10 mg PO DIRECTED 03/01/25 03/01/25 chloride ER] cloNIDine HCL [Catapres] 0.1 mg PO DIRECTED 03/01/25 03/01/25 traZODone HCL [Desyrel] 100 mg PO HS 03/01/25 03/01/25 Previous Rx's Medication Instructions Recorded Ondansetron Odt [Zofran Odt] 4 mg PO Q8HR PRN #10 tab 03/01/25 Allergies Allergy/AdvReac Type Severity Reaction Status Date / Time codeine Allergy Anaphylaxis Verified 03/01/25 14:31 Review of Systems ROS Statement: Those systems with pertinent positive or pertinent negative responses have been documented in the HPI. ROS Other: All systems not noted in ROS Statement are negative. Past Medical History Past Medical History: Asthma Additional Past Medical History / Comment(s): PCOS History of Any Multi-Drug Resistant Organisms: None Reported Past Surgical History: No Surgical Hx Reported Past Anesthesia/Blood Transfusion Reactions: No Reported Reaction Past Psychological History: Depression Smoking Status: Former smoker, Vaper Past Alcohol Use History: Occasional Past Drug Use History: Marijuana - Past Family History Mother Family Medical History: Cancer General Exam Limitations: no limitations General appearance: alert, in no apparent distress Head exam: Present: atraumatic, normocephalic, normal inspection Eye exam: Present: normal appearance, PERRL, EOMI. Absent: scleral icterus, conjunctival injection, periorbital swelling ENT exam: Present: normal exam, mucous membranes moist Neck exam: Present: normal inspection. Absent: tenderness, meningismus, lymphadenopathy Respiratory exam: Present: normal lung sounds bilaterally. Absent: respiratory distress, wheezes, rales, rhonchi, stridor Cardiovascular Exam: Present: regular rate, normal rhythm, normal heart sounds. Absent: systolic murmur, diastolic murmur, rubs, gallop, clicks GI/Abdominal exam: Present: soft, tenderness (Diffuse lower abdominal tenderness without guarding. Negative Rovsing, Michaels sign), normal bowel sounds. Absent: distended, guarding, rebound, rigid Extremities exam: Present: normal inspection, full ROM, normal capillary refill. Absent: tenderness, pedal edema, joint swelling, calf tenderness Back exam: Present: normal inspection. Absent: CVA tenderness (R), CVA tenderness (L) Neurological exam: Present: alert, oriented X3, CN II-XII intact Psychiatric exam: Present: normal affect, normal mood Skin exam: Present: warm, dry, intact, normal color. Absent: rash Course Vital Signs 03/01/25 03/01/25 03/01/25 14:28 18:17 18:53 Temperature 98.1 F 98.1 F Pulse Rate 110 H 79 Respiratory 18 17 Rate Blood Pressure 138/85 123/83 O2 Sat by Pulse 96 96 Oximetry Medical Decision Making - Medical Decision Making Was pt. sent in by a medical professional or institution (, PA, HEALTH INFORMATION SYSTEMS TECHNICIAN, urgent care, hospital, or longterm...) When possible be specific @ -No Did you speak to anyone other than the patient for history (EMS, parent, family, police, friend...)? What history was obtained from this source @ -No Did you review nursing and triage notes (agree or disagree)? Why? @ -I reviewed and agree with nursing and triage notes Were old charts reviewed (outside hosp., previous admission, EMS record, old EKG, old radiological studies, urgent care reports/EKG's, longterm records)? Report findings @ -No old charts were reviewed Differential Diagnosis (chest pain, altered mental status, abdominal pain women, abdominal pain men, vaginal bleeding, weakness, fever, dyspnea, syncope, headache, dizziness, GI bleed, back pain, seizure, CVA, palpatations, mental health, musculoskeletal)? @ -Differential Abdominal Pain Women: Appendicitis, Cholecystitis, diverticulosis, ischemic bowel, pancreatitis, hepatitis, UTI, gastroenteritis, AAA, incarcerated hernia, bowel obstruction, constipation, inflammatory bowel, hepatitis, peptic ulcer disease, splenic inf arction, perforated viscus, vulvitis, ovarian torsion, PID, kidney stone, placenta abruption, this is not meant to be an all-inclusive list EKG interpreted by me (3pts min.). @ -Not done X-rays interpreted by me (1pt min.). @ -None done CT interpreted by me (1pt min.). @ -None done U/S interpreted by me (1pt. min.). @ -Transvaginal ultrasound demonstrates no suspicious pelvic abnormality. What testing was considered but not performed or refused? (CT, X-rays, U/S, labs)? Why? @ -None What meds were considered but not given or refused? Why? @ -None Did you discuss the management of the patient with other professionals (professionals i.e. , PA, HEALTH INFORMATION SYSTEMS TECHNICIAN, lab, RT, psych nurse, social media marketing manager, staker surveying, teacher, traffic control officer, outsole caser)? Give summary @ -No Was smoking cessation discussed for >3mins.? @ -No Was critical care preformed (if so, how long)? @ -No Were there social determinants of health that impacted care today? How? (Homelessness, low income, unemployed, alcoholism, drug addiction, transportation, low edu. Level, literacy, decrease access to med. care, long term, rehab)? @ -No Was there de-escalation of care discussed even if they declined (Discuss DNR or withdrawal of care, Hospice)? DNR status @ -No What co-morbidities impacted this encounter? (DM, HTN, Smoking, COPD, CAD, Cancer, CVA, ARF, Chemo, Hep., AIDS, mental health diagnosis, sleep apnea, mor bid obesity)? @ -None Was patient admitted / discharged? Hospital course, mention meds given and rou te, prescriptions, significant lab abnormalities, going to OR and other pertinent info. @ -Patient initially provided IV normal saline and p.o. Tylenol. Lab work unremarkable with hemoglobin 14.3 and UA showing hematuria and negative urine hCG. Transvaginal ultrasound demonstrates no suspicious pelvic abnormality. Patient provided IV Dilaudid, Toradol for ongoing pain. Also provided Zofran for nausea. Patient discharged with Zofran starter pack with additional Zofran sent to patient's pharmacy. Advised follow-up with PCP/PLATE GRAINER/urology for ongoing evaluation and management of bleeding. Discussed patient with Dr. Glass. Undiagnosed new problem with uncertain prognosis? @ -No Drug Therapy requiring intensive monitoring for toxicity (Heparin, Nitro, Insulin, Cardizem)? @ -No Were any procedures done? @ -No Diagnosis/symptom? @ -[place], hematuria Acute, or Chronic, or Acute on Chronic? @ -Acute Uncomplicated (without systemic symptoms) or Complicated (systemic symptoms)? @ -Complicated Side effects of treatment? @ -No Exacerbation, Progression, or Severe Exacerbation? @ -No Poses a threat to life or bodily function? How? (Chest pain, [place], [place], pneumonia, PE, COPD, DKA, ARF, appy, cholecystitis, CVA, Diverticulitis, Homicidal, Suicidal, threat to staff... and all critical care pts) @ -No - Lab Data Result diagrams: 03/01/25 14:48 03/01/25 14:48 Lab Results 03/01/25 03/01/25 03/01/25 Range/Units 14:48 14:48 14:49 WBC 7.48 (4.50-10.00) 10*3/uL RBC 4.84 (4.10-5.20) 10*6/uL Hgb 14.3 (12.0-15.0) g/dL Hct 42.5 (37.2-46.3) % MCV 87.8 (80.0-97.0) fL MCH 29.5 (27.0-32.0) pg MCHC 33.6 (32.0-37.0) g/dL Plt Count 312 (140-440) 10*3/uL MPV 8.6 L (9.5-12.2) fL Immature Gran % (Auto) 0.3 % Neutrophils % 63.6 % Lymphocytes % 29.7 % Monocytes % 4.7 % Eosinophils % 1.3 % Basophils % 0.4 % Immature Gran # 0.02 (0.00-0.04) 10*3/uL Neutrophils # 4.76 (1.80-7.70) 10*3/uL Lymphocytes # 2.22 (0.90-5.00) 10*3/uL Monocytes # 0.35 (0.20-1.00) 10*3/uL Eosinophils # 0.10 (0.04-0.35) 10*3/uL Basophils # 0.03 (0.00-0.10) 10*3/uL Sodium 139 (137-145) mmol/L Potassium 4.1 (3.5-5.1) mmol/L Chloride 99 (98-107) mmol/L Carbon Dioxide 28 (22-30) mmol/L Anion Gap 12 mmol/L BUN 10 (7-17) mg/dL Creatinine 0.52 (0.52-1.04) mg/dL Est GFR (CKD-EPI)AfAm >90 (>60 ml/min/1.73 sqM) Est GFR (CKD-EPI)NonAf >90 (>60 ml/min/1.73 sqM) Glucose 97 (74-99) mg/dL Calcium 10.2 (8.4-10.2) mg/dL Total Bilirubin 0.8 (0.2-1.3) mg/dL AST 35 (14-36) U/L ALT 52 H (4-34) U/L Alkaline Phosphatase 102 (38-126) U/L Total Protein 8.0 (6.3-8.2) g/dL Albumin 5.0 (3.5-5.0) g/dL Lipase 142 (23-300) U/L HCG, Quant <2.4 mIU/mL Urine Color Yellow Urine Appearance Clear (Clear) Urine pH 8.5 H (5.0-8.0) Ur Specific [place] 1.021 (1.001-1.035) Urine Protein 1+ H (Negative) Urine Glucose (UA) Negative (Negative) Urine Ketones Negative (Negative) Urine Blood Large H (Negative) Urine Nitrite Negative (Negative) Urine Bilirubin Negative (Negative) Urine Urobilinogen <2.0 (<2.0) mg/dL Ur Leukocyte Esterase Negative (Negative) Urine RBC 138 H (0-5) /hpf Urine WBC 2 (0-5) /hpf Ur Squamous Epith Cells 2 (0-4) /hpf Urine Mucus Rare H (None) /hpf Urine HCG, Qual (Not Detectd) 03/01/25 Range/Units 14:49 WBC (4.50-10.00) 10*3/uL RBC (4.10-5.20) 10*6/uL Hgb (12.0-15.0) g/dL Hct (37.2-46.3) % MCV (80.0-97.0) fL MCH (27.0-32.0) pg MCHC (32.0-37.0) g/dL Plt Count (140-440) 10*3/uL MPV (9.5-12.2) fL Immature Gran % (Auto) % Neutrophils % % Lymphocytes % % Monocytes % % Eosinophils % % Basophils % % Immature Gran # (0.00-0.04) 10*3/uL Neutrophils # (1.80-7.70) 10*3/uL Lymphocytes # (0.90-5.00) 10*3/uL Monocytes # (0.20-1.00) 10*3/uL Eosinophils # (0.04-0.35) 10*3/uL Basophils # (0.00-0.10) 10*3/uL Sodium (137-145) mmol/L Potassium (3.5-5.1) mmol/L Chloride (98-107) mmol/L Carbon Dioxide (22-30) mmol/L Anion Gap mmol/L BUN (7-17) mg/dL Creatinine (0.52-1.04) mg/dL Est GFR (CKD-EPI)AfAm (>60 ml/min/1.73 sqM) Est GFR (CKD-EPI)NonAf (>60 ml/min/1.73 sqM) Glucose (74-99) mg/dL Calcium (8.4-10.2) mg/dL Total Bilirubin (0.2-1.3) mg/dL AST (14-36) U/L ALT (4-34) U/L Alkaline Phosphatase (38-126) U/L Total Protein (6.3-8.2) g/dL Albumin (3.5-5.0) g/dL Lipase (23-300) U/L HCG, Quant mIU/mL Urine Color Urine Appearance (Clear) Urine pH (5.0-8.0) Ur Specific [place] (1.001-1.035) Urine Protein (Negative) Urine Glucose (UA) (Negative) Urine Ketones (Negative) Urine Blood (Negative) Urine Nitrite (Negative) Urine Bilirubin (Negative) Urine Urobilinogen (<2.0) mg/dL Ur Leukocyte Esterase (Negative) Urine RBC (0-5) /hpf Urine WBC (0-5) /hpf Ur Squamous Epith Cells (0-4) /hpf Urine Mucus (None) /hpf Urine HCG, Qual Not Detected (Not Detectd) Disposition Clinical Impression: Hematuria, Metrorrhagia Disposition: HOME SELF-CARE Condition: Fair Instructions (If sedation given, give patient instructions): Abnormal (Dysfunctional) Uterine Bleeding (ED), Hematuria (ED) Additional Instructions: Follow-up with urology and PLATE GRAINER for further evaluation and workup for blood in urine and vaginal bleeding. Prescriptions: Ondansetron Odt [Zofran Odt] 4 mg PO Q8HR PRN #10 tab PRN Reason: Nausea Is patient prescribed a controlled substance at d/c from ED?: No Referrals: Maile Oconnor MD [STAFF PHYSICIAN] - 1-2 days Robin Cardoso MD [STAFF PHYSICIAN] - 1-2 days Mariya Arroyo MD [STAFF PHYSICIAN] - 1-2 days Time of Disposition: 17:27
[2025-03-01] MEDS: SODIUM CHLORIDE 0.9% 1,000 ML IV STA (14:59)
[2025-03-01] MEDS: ACETAMINOPHEN TAB 500 MG TAB PO STA (15:25)
[2025-03-01 15:26] LABS: Basophils # (A) 0.03 10*3/uL (0.00-0.10); Basophils % (A) 0.4 %; Eosinophils # (A) 0.10 10*3/uL (0.04-0.35); Eosinophils % (A) 1.3 %; HCT 42.5 % (37.2-46.3); HGB 14.3 g/dL (12.0-15.0); Lymphocytes # (A) 2.22 10*3/uL (0.90-5.00); Lymphocytes % (A) 29.7 %; MCH 29.5 pg (27.0-32.0); MCHC 33.6 g/dL (32.0-37.0); MCV 87.8 fL (80.0-97.0); Monocytes # (A) 0.35 10*3/uL (0.20-1.00); Monocytes % (A) 4.7 %; Neutrophils # (A) 4.76 10*3/uL (1.80-7.70); Neutrophils % (A) 63.6 %; Platelet Count 312 10*3/uL (140-440); RBC 4.84 10*6/uL (4.10-5.20); RDW 13.3 % (11.5-14.5); WBC 7.48 10*3/uL (4.50-10.00)
[2025-03-01 15:48] LABS: ALT 52 U/L (4-34); AST 35 U/L (14-36); African American GFR (CKD) >90 (>60 ml/min/1.73 sqM); Albumin 5.0 g/dL (3.5-5.0); Alkaline Phosphatase 102 U/L (38-126); Anion Gap 12 mmol/L; Blood Urea Nitrogen 10 mg/dL (7-17); Calcium 10.2 mg/dL (8.4-10.2); Carbon Dioxide 28 mmol/L (22-30); Chloride 99 mmol/L (98-107); Glucose 97 mg/dL (74-99); Lipase 142 U/L (23-300); Non-African American GFR(CKD) >90 (>60 ml/min/1.73 sqM); Potassium 4.1 mmol/L (3.5-5.1); Sodium 139 mmol/L (137-145); Total Protein 8.0 g/dL (6.3-8.2)
[2025-03-01 15:52] LABS: Bilirubin,Urine Negative (Negative); Blood,Urine Large (Negative); Color,Urine Yellow; Glucose,Urine (UA) Negative (Negative); Ketones,Urine Negative (Negative); Leukocyte Esterase,Urine Negative (Negative); Mucus,Urine Rare /hpf; Nitrite,Urine Negative (Negative); PH, Urine 8.5 (5.0-8.0); Protein,Urine 1+ (Negative); RBC,Urine 138 /hpf (0-5); Specific Gravity,Urine 1.021 (1.001-1.035); Squamous Epithelial Cell,Urine 2 /hpf (0-4); Urobilinogen,Urine <2.0 mg/dL (<2.0); WBC,Urine 2 /hpf (0-5)
[2025-03-01 16:04] LABS: HCG,Quantitative Serum <2.4 mIU/mL
[2025-03-01] MEDS: KETOROLAC 15 MG/ML 1 ML VIAL IVP STA (16:46)
[2025-03-01] MEDS: HYDROmorphone 1 MG/ML 1 ML SYRINGE IVP STA (16:48)
--- NOTE | 2025-03-01 17:03 | US ---
EXAMINATION TYPE: US transvaginal DATE OF EXAM: 03/01/2025 COMPARISON: NONE CLINICAL INDICATION: Female, 29 years old with history of Metrorrhagia, lower abdominal pain/cramping ; bleeding x 1 month. TECHNIQUE: Transvaginal (TV). Doppler imaging: Color Doppler Images were obtained. Spectral doppler images were obtained. FINDINGS: Date of LMP: Bleeding for the past month EXAM MEASUREMENTS: Uterus: 5.7 x 4.4 x 3.2 cm Endometrial Stripe: 0.34 cm Right Ovary: 3.0 x 2.3 x 1.5 cm Left Ovary: 3.1 x 2.2 x 1.8 cm 1. Uterus: Anteverted wnl 2. Endometrium: wnl 3. Right Ovary: wnl 4. Left Ovary: wnl Spectral, color and waveform doppler imaging shows good arterial and venous flow within the ovaries ; there is no evidence for ovarian torsion. 5. Bilateral Adnexa: wnl 6. Posterior cul-de-sac: wnl IMPRESSION: 1. No suspicious acute pelvic ultrasound abnormality. O-RADS 2021 [email or web address] [email or web address], Workstation: [facility], 03/01/2025 5:00 PM
[2025-03-01 18:19] VITALS: BP 123/83; PULSE 79; RESP 17
[2025-03-01] MEDS: ONDANSETRON ODT 4 MG TAB PO STA (18:48)
[2025-03-01] MEDS: ONDANSETRON 4 MG ODT STARTER PACK TAB BTL PO STA (18:48)
== END 2025-03-01 18:59 | disposition home or self-care (01) ==
LOC: EC 14:27
DX: N92.1 Excessive and frequent menstruation with irregular cycle (principal); R31.9 Hematuria, unspecified; F17.290 Nicotine dependence, other tobacco product, uncomplicated; Z88.5 Allergy status to narcotic agent
CPT/HCPCS: 36415; 80053; 83690; 85025; 81001; 81025; 84702; 93975; 76830; 99284; 96374; 96375; 96361; J1171; J1885; S0119